=== PATIENT | male | born 1975 | race Caucasian/White ===

== ENCOUNTER 2022-06-22 20:22 | Emergency (ER) | payer OTHER, SELFPAY ==
[2022-06-22 20:29] VITALS: BP 156/90; PULSE 83; TEMP 36.6; O2SAT 95; BMI 31.3
--- NOTE | 2022-06-22 21:05 | CRLHL7_ITS ---
For Patients: As a result of the Cures Act, medical imaging exams and procedure reports are released immediately into your electronic medical record. You may view this report before your referring provider. If you have questions, please contact your health care provider. Indication: Fifth metatarsal, red and tender.. Gout versus cellulitis Technique: Right foot, 2 views. Comparison: None. Findings: Bones: Alignment is normal. No fractures or bone lesions. No erosive changes or periosteal reaction identified. Joint spaces: Unremarkable. Soft tissues: Soft tissue swelling overlying the 5th MTP.. Impression: Soft tissue swelling surrounding the 5th MTP joint. No underlying fractures. No erosive changes or periosteal reaction to suggest osteomyelitis. Dictated by Anaid Sharp MD @ 06/22/2022 9:52:49 PM (Electronically Signed)
--- NOTE | 2022-06-22 21:09 | ED.WOUNDLAC ---
HPI - Wound/Laceration General Chief Complaint: Laceration/Wound Stated Complaint: Rt Foot Infection - Streaking Time Seen by Provider: 06/22/22 20:56 Source: patient Mode of arrival: ambulatory Limitations: no limitations History of Present Illness HPI narrative: 47-year-old male with tenderness in the right 5th metatarsal area for the past couple of days, noting red streaking coming up the foot today. Unfortunately no urgent care appointments were available per patient. He is not having fevers but is notice redness spreading along the bottom of the foot as well. He tends to get calluses in this area it does admit to shaving down a callus Praveena may have been a little aggressive last week. He wonders if this potentially could be causing his symptoms. He is prone to a bony enlargement like a bunion on both feet at the 5th metatarsal area, this is chronic. There was no specific trauma nor injury. He has no history of gout. He has had infections that have required IV antibiotics uneven hospitalization though he does not report a history of MRSA. He states that he had an infection in the elbow which required IV antibiotics most recently in November of 2020. He notes no fevers, weakness or like symptoms. Has not tried any topical treatments or other medications to help with his symptoms. He is not immunocompromised, not diabetic, has no history of vascular disease. Past medical history otherwise benign besides the previous skin infections. 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 Long-term medications, no allergies. Socially no illicit substances or pertinent travel. ROS is negative times 12 systems with the exception of the musculoskeletal and skin symptoms as described above on the right lateral foot. Related Data Previous Rx's Medication Instructions Recorded doxycycline hyclate 100 mg capsule 100 mg PO BID #15 caps 06/22/22 sulfamethoxazole 800 1 tab PO BID #15 tabs 06/22/22 mg-trimethoprim 160 mg tablet (Bactrim DS) Allergies Allergy/AdvReac Type Severity Reaction Status Date / Time No Known Drug Allergies Allergy Verified 06/22/22 20:31 Review of Systems Status of ROS: Reports: 10 or more systems reviewed and unremarkable except as noted in History and below PFSH PFS Social History Smoking Status: Former smoker Do you use any of these nicotine containing products: None Second hand tobacco smoke exposure: No How often do you have a drink containing alcohol: monthly or less How often do you have six or more drinks on one occasion: Never AUDIT-C Alcohol total score: 1 Non-prescribed substance use: denies use Exam Const: Vital Signs, click to edit/add: Vital Signs - 24 hr 06/22/22 20:29 Temperature 97.8 F Pulse Rate [Left P ulse Oximeter] 83 Blood Pressure [Ri ght Upper Arm] 156/90 H Pulse Oximetry 95 Oxygen Delivery Me thod Room Air Documenting provider has reviewed patient's vital signs: yes Common normals: no apparent distress General appearance: cooperative, comfortable and well kempt HENMT: Common normals: normocephalic Head and scalp: normocephalic Mouth: oral and palatal mucosa normal Throat: posterior oropharynx normal Eye: Common normals: conjunctivae normal and no scleral icterus Conjunctiva: conjunctiva(e) normal Neck & C-Spine: Common normals: full ROM and no lymphadenopathy Resp: Common normals: normal respiratory effort, no use of accessory muscles and clear to auscultation bilaterally Effort & inspection: able to speak in complete sentences Auscultation: clear to auscultation bilaterally Cardio: Common normals: regular rate, regular rhythm, S1 normal heart sound, S2 normal heart sound and no murmurs Rate: regular rate Rhythm: regular rhythm Heart sounds: S1 normal and S2 normal GI: Common normals: Normal to inspection, nondistended, normoactive bowel sounds present, no hepatosplenomegaly and no masses Palpation: no hepatosplenomegaly Extremity: Other: Left foot with bony enlargement of the left 5th metatarsal but no other abnormality. The feet have fallen arches but overall structurally normal-appearing ankles and knees. The foot however has swelling, redness and warmth over the lateral 5th metatarsal of the right foot. There is callus and ulceration on the bottom of the 5th metatarsal plantar surface it does look as though he had filed this down but there is certainly an ulcer here with some bruising and exquisite tenderness. There is redness sneaking around the bottom of the foot along the 3rd and 4th metatarsal plantar heads and also redness streaking up the foot along the arch in a very thin line suspicious for lymphangitis. Good Peripheral pulses normal range of motion of foot. Neuro: Motor exam: strength 5/5 throughout, no tremor noted, no asterixis and no movement abnormalities noted Psych: Common normals: speech normal Appearance: well kempt Speech: normal speech Mood and affect: euthymic mood Insight: insight good Judgement: judgment good Skin: Narrative: Other than the ulceration on the bottom of the right 5th MTP and the streaking redness, there are no other abnormal appearing rashes. He does has some very slight superficial spider veins, we discussed how these are nonpathological. Course Course Hospital Course: Significant concern that this is either gout or a spreading infection. Could potentially be osteomyelitis with the ulceration noted. It does sound suspicious that this was from his self induce treatment callus. But could reflect metabolic pathology. IV will be placed as he will likely need IV antibiotics. We will also get a CRP, CBC, basic metabolic panel, uric acid level and x-ray. If infection, would recommend initial dose of IV antibiotics before transitioning onto oral. May require additional days of IV antibiotics. Vital Signs Vital signs: Initial Vital Signs Temperature 97.8 F 06/22/22 20:29 Temperature Source Temporal Artery Scan 06/22/22 20:29 Pulse Rate 83 06/22/22 20:29 Blood Pressure 156/90 H 06/22/22 20:29 Blood Pressure Mean 112 06/22/22 20:29 Blood Pressure Position Sitting 06/22/22 20:29 Pulse Oximetry 95 06/22/22 20:29 Oxygen Delivery Method 06/22/22 20:29 Vital Signs Temperature 97.8 F 06/22/22 20:29 Pulse Rate 83 06/22/22 20:29 Blood Pressure 156/90 H 06/22/22 20:29 Pulse Oximetry 95 06/22/22 20:29 Oxygen Delivery Method 06/22/22 20:29 Temperature 97.8 F 06/22/22 20:29 Pulse Rate 83 06/22/22 20:29 Blood Pressure 156/90 H 06/22/22 20:29 Pulse Oximetry 95 06/22/22 20:29 Oxygen Delivery Method 06/22/22 20:29 MDM - Wound/Laceration MDM Narrative Medical decision making narrative: Labs reviewed, more suspicious for infection than gout. Uric acid levels are a little borderline. He has a slight white count but CRP is normal which would more favor infection than gout. Prior history of similar infections at elbow suspicious as well. 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 Discussed antibiotic therapy. Recommended a single course of IV clindamycin then transitioning on to oral medication. Will receive his 1st dose of Bactrim here tonight as well, orally. Area of cellulitis is marked. Recommended follow-up on Sunday with primary care provider. Alarm symptoms in warning signs reviewed. Drink lots of fluids, typical side effects discussed. Lab Data Attestation: I reviewed the patient's lab results. Labs: Lab Results 06/22/22 06/22/22 Range/Units 21:05 21:20 WBC 12.43 H (4.50-11.00) K/uL RBC 5.27 (4.30-5.90) m/uL Hgb 15.8 (13.5-17.5) gm/dL Hct 46.0 (37.0-53.0) % MCV 87 (80-100) fL MCH 30 (26-34) pg MCHC 34 (32-36) gm/dL RDW Coeff of Ming 12.4 (11.5-15.5) % Plt Count 233 (140-440) K/uL Neut % (Auto) 70.3 (42.0-72.0) % Lymph % (Auto) 19.5 L (20-44) % [place] % (Auto) 7.3 (0.0-11.0) % Eos % (Auto) 2.3 (0.0-7.0) % Baso % (Auto) 0.4 (0.0-3.0) % Neut # (Auto) 8.70 H (1.7-7.0) K/uL Lymph # (Auto) 2.40 (0.90-2.90) K/uL [place] # (Auto) 0.90 (0.00-0.90) K/UL Eos # (Auto) 0.30 (0.00-0.50) K/uL Baso # (Auto) 0.00 (0.00-0.30) K/uL Abs Immat Gran (auto) 0.00 (0.00-0.30) K/uL Imm/Tot Granulo (auto) 0.2 % Sodium 140 (135-149) mmol/L Potassium 3.8 (3.6-5.1) mmol/L Chloride 103 (96-114) mmol/L Carbon Dioxide 27 (20-32) mmol/L BUN 18 (5-24) mg/dL Creatinine 1.0 (0.5-1.5) mg/dL Estimated Creat Clear 124.00 Estimated GFR 93 ml/min Glucose 91 (60-115) mg/dL Uric Acid 6.0 (2.2-8.4) mg/dL Calcium 9.5 (8.4-10.6) mg/dL C-Reactive Protein 0.6 (0.5-1.0) mg/dL Imaging Data Foot x-ray: Attestation: I have reviewed the pertinent imaging results. My impression: Impressive amount of arthritis for age, lots of spurs. In the area of question at the 5th metatarsal though no erosive changes to the bone noted. There is some mild soft tissue swelling however suspicious for cellulitis Radiologist's impression: Impression: Soft tissue swelling surrounding the 5th MTP joint. No underlying fractures. No erosive changes or periosteal reaction to suggest osteomyelitis. Discharge Plan Discharge Clinical Impression: Cellulitis of foot Patient Disposition: Home, Self-Care Condition: Improved Instructions: Cellulitis (ED) Additional Instructions: The blood work is more suspicious for infection than gout. I suspect that the infection entered through break in the skin near your callus on the bottom of the foot. We have started you on antibiotics here in the emergency department. You will need to go to the pharmacy in the morning and knot picker cloth your additional doses. Take your next dose is as soon as possible in the morning. He will continue taking these twice daily for the next 10 days. Area of redness may worsen for 24 hours. This is not necessarily a sign of a problem. If after 24 hours, it is continuing to worsen, you may need admission and IV antibiotics, please come back to the emergency department if this is the case. If at any point you are severely weak, running high fevers and unable to care for herself, come back to the emergency department. Apply antibiotic ointment to the wound on the bottom of the foot and keep this covered. I would like for you to follow-up with a primary care doctor on Sunday to make sure that things are healing well. It would be reasonable to have you see a styrene dehydration reactor operator because of arthritis issues in your foot if it is bother you enough to limit activities. It is okay to use Tylenol and/or ibuprofen as needed for pain. Activity Level: Activity as Tolerated Discharge Diet: Regular Prescriptions: New sulfamethoxazole-trimethoprim [Bactrim DS] 800-160 mg tablet 1 tab PO BID Qty: 15 0RF doxycycline hyclate 100 mg capsule 100 mg PO BID Qty: 15 0RF Follow Up/Referrals: Provider,Not a Local [Primary Care Provider] - (Primary care provider on Sunday.) Stand Alone Forms: [facility] Info Instructions
[2022-06-22 21:26] LABS: Basophils Percent Auto 0.4 % (0.0-3.0); Eosinophils Percent Auto 2.3 % (0.0-7.0); Hemoglobin* 15.8 gm/dL (13.5-17.5); Immature Granulocytes Pct Auto 0.2 %; Lymphocytes Percent Auto 19.5 % (20-44); Mean Corpuscular HGB Conc 34 gm/dL (32-36); Mean Corpuscular Hemoglobin 30 pg (26-34); Mean Corpuscular Volume 87 fL (80-100); Monocytes Percent Auto 7.3 % (0.0-11.0); Neutrophils Percent Auto 70.3 % (42.0-72.0); Platelet Count* 233 K/uL (140-440); RDW Coefficient of Variation % 12.4 % (11.5-15.5); Red Blood Count 5.27 m/uL (4.30-5.90); White Blood Count* 12.43 K/uL (4.50-11.00)
[2022-06-22 21:39] LABS: Chloride* 103 mmol/L (96-114); Potassium* 3.8 mmol/L (3.6-5.1); Sodium* 140 mmol/L (135-149)
[2022-06-22 21:41] LABS: Estimated Glomerular Filt Rate 93 ml/min
[2022-06-22 21:42] LABS: Blood Urea Nitrogen* 18 mg/dL (5-24); Carbon Dioxide* 27 mmol/L (20-32); Glucose* 91 mg/dL (60-115)
[2022-06-22 21:43] LABS: Calcium* 9.5 mg/dL (8.4-10.6)
[2022-06-22 21:45] LABS: C Reactive Protein* 0.6 mg/dL (0.5-1.0)
[2022-06-22 21:54] LABS: Slide Review Reflex No
[2022-06-22 22:10] VITALS: BP 130/90; PULSE 75; O2SAT 95
[2022-06-22] MEDS: CLINDAMYCIN PHOSPHATE/D5W 600 MG/50 ML PIGGYBACK 900 MG IVPB (22:10)
[2022-06-22 22:30] VITALS: BP 140/87; PULSE 72; O2SAT 95
[2022-06-22 22:45] VITALS: BP 133/78; PULSE 72; O2SAT 95
== END 2022-06-22 22:53 | disposition home or self-care (01) ==
PROVIDERS: Emergency Provider Family Medicine
DX: L03.115 Cellulitis of right lower limb (principal)
CPT/HCPCS: 36415; 73620; 80048; 84550; 85025; 86140; 96374; 99283; A9270; S0077

== ENCOUNTER 2022-06-27 15:37 | Emergency (ER) | payer OTHER, SELFPAY ==
[2022-06-27 15:50] VITALS: BP 150/84; PULSE 82; RESP 18; TEMP 36.1; O2SAT 96; BMI 31.3
--- NOTE | 2022-06-27 17:46 | ED.GENADULT ---
HPI - General Adult General Time Seen by Provider: 17:47 Date Seen: 06/27/22 Chief complaint: Extremity Pain/Injury, Lower Stated complaint: Infection on right foot Time Seen by Provider: 06/27/22 17:33 Source: patient, RN notes reviewed and old records reviewed Mode of arrival: ambulatory Limitations: no limitations History of Present Illness HPI narrative: 47-year-old male who comes in today with right foot pain. He was seen here a couple days ago with this, diagnosed with cellulitis and started on doxycycline. Had significant improvement until today when he noticed increased swelling and pain. No fevers. No nausea vomiting. Related Data Previous Rx's Medication Instructions Recorded doxycycline hyclate 100 mg capsule 100 mg PO BID #15 caps 06/22/22 sulfamethoxazole 800 1 tab PO BID #15 tabs 06/22/22 mg-trimethoprim 160 mg tablet (Bactrim DS) Allergies Allergy/AdvReac Type Severity Reaction Status Date / Time No Known Drug Allergies Allergy Verified 06/27/22 15:57 Review of Systems Status of ROS: Reports: 10 or more systems reviewed and unremarkable except as noted in History and below PFSH PFSH Social History Smoking Status: Former smoker Do you use any of these nicotine containing products: None Second hand tobacco smoke exposure: No How often do you have a drink containing alcohol: monthly or less How often do you have six or more drinks on one occasion: Never AUDIT-C Alcohol total score: 1 Non-prescribed substance use: denies use Exam Narrative: Exam Narrative: General: well nourished , NAD Head: Atraumatic and normocephalic ENT: External ears and external nose are normal Eyes: Conjunctiva clear, pupils are equal reactive, external ocular motions are intact Neck: Full spontaneous range of motion of the neck Lungs: No respiratory distress Musculoskeletal: Swelling of the lateral right foot over the distal 5th metatarsal, surrounding erythema and obvious subcutaneous purulence. No tenderness between the metatarsals. No pain with passive movement of the toes. Slight tracking erythema proximally but still significantly retreated from prior aleman. Neurologic: No gross focal neurologic deficits Skin: No rashes Psych: Mood and affect are appropriate Const: Vital Signs, click to edit/add: Vital Signs - 24 hr 06/27/22 15:50 Temperature 96.9 F L Pulse Rate [Right Pulse Oximeter] 82 Respiratory Rate 18 Blood Pressure [Ri ght Upper Arm] 150/84 H Pulse Oximetry 96 Oxygen Delivery Me thod Room Air Course Course Hospital Course: Patient seen and examined, prior records reviewed. Patient with a cellulitis of the right foot and now what appears to be a pus collection under the skin. This area was prepped with ChloraPrep and a 2 mm right done later section of skin was removed with moderate purulent fluid expressed. Wound was dressed. Patient should continue antibiotics and will be started on Augmentin as well. I contacted Dr. Dejesus who will see the patient in clinic at 9AM tomorrow. Patient will be started on Augmentin and continue his doxycycline. Vital Signs Vital signs: Initial Vital Signs Temperature 96.9 F L 06/27/22 15:50 Temperature Source Temporal Artery Scan 06/27/22 15:50 Pulse Rate 82 06/27/22 15:50 Respiratory Rate 18 06/27/22 15:50 Blood Pressure 150/84 H 06/27/22 15:50 Blood Pressure Mean 106 06/27/22 15:50 Blood Pressure Position Sitting 06/27/22 15:50 Pulse Oximetry 96 06/27/22 15:50 Oxygen Delivery Method 06/27/22 15:50 Vital Signs Temperature 96.9 F L 06/27/22 15:50 Pulse Rate 82 06/27/22 15:50 Respiratory Rate 18 06/27/22 15:50 Blood Pressure 150/84 H 06/27/22 15:50 Pulse Oximetry 96 06/27/22 15:50 Oxygen Delivery Method 06/27/22 15:50 Temperature 96.9 F L 06/27/22 15:50 Pulse Rate 82 06/27/22 15:50 Respiratory Rate 18 06/27/22 15:50 Blood Pressure 150/84 H 06/27/22 15:50 Pulse Oximetry 96 06/27/22 15:50 Oxygen Delivery Method 06/27/22 15:50 Medical Decision Making Medical Records Medical records reviewed: Yes I reviewed the patient's medical records Lab Data Lab results reviewed: Yes I reviewed the patient's lab results Discharge Plan Discharge Clinical Impression: Abscess of right foot Patient Disposition: Home, Self-Care Condition: Stable Instructions: Abscess Incision and Drainage (DC) Additional Instructions: Warm soapy soaks twice a day. Dressing for comfort as there may be continued drainage. [facility] at 9:00 a.m. Continue your current antibiotic and add Augmentin Activity Level: No Restrictions Discharge Diet: Regular Prescriptions: No Action sulfamethoxazole-trimethoprim [Bactrim DS] 800-160 mg tablet 1 tab PO BID Qty: 15 0RF doxycycline hyclate 100 mg capsule 100 mg PO BID Qty: 15 0RF Follow Up/Referrals: Provider,Not a Local [Referring] - Stand Alone [facility]: [facility] Inst[facility]
[2022-06-27 18:12] VITALS: BP 150/84; PULSE 82; RESP 18; TEMP 36.1
--- NOTE | 2022-06-27 18:15 | ED.NURSE ---
Telfa and gauze dressing, Coban applied to foot. Additional dressing supplies provided to Pt. Ambulates well.
== END 2022-06-27 18:12 | disposition home or self-care (01) ==
PROVIDERS: Emergency Provider Family Medicine; PCP Student in an Organized Health Care Education/Training Program
DX: L02.611 Cutaneous abscess of right foot (principal)
CPT/HCPCS: 10060; 99283

== ENCOUNTER 2022-07-02 15:09 | Emergency (ER) | payer OTHER, SELFPAY ==
[2022-07-02 15:20] VITALS: BP 131/84; PULSE 88; RESP 20; TEMP 36.3; O2SAT 95; BMI 31.3
--- NOTE | 2022-07-02 15:32 | ED.GENADULT ---
HPI - General Adult General Time Seen by Provider: 15:32 Date Seen: 07/02/22 Chief complaint: Extremity Pain/Injury, Lower Stated complaint: Right foot absces Time Seen by Provider: 07/02/22 15:15 Source: patient, RN notes reviewed and old records reviewed Mode of arrival: ambulatory Limitations: no limitations History of Present Illness HPI narrative: Patient is a 47-year-old male coming in with increasing right foot pain and some increasing redness around the site of an abscess that he had drained recently. 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 He states that his time in the ER today is 1st time he has had it up all day. He gives a history where he has maybe had cellulitis or abscesses about 8-9 times in his life. He had seen Dr. Mcdaniel initially here in the ER early June with a diagnosis of cellulitis of his right foot. Dr. Fuentes saw him back I believe on the and did do an incision and drainage. He was initially put on Bactrim and doxycycline, then Augmentin added in. A culture was not done of the abscess. Reviewed with patient that he had been on antibiotics for about a week at that time but will certainly look at his foot to see if there is anything culturable today. He states the exterior interior specialist had recommended getting a culture if possible at any point it might be worsening. No fevers. Pain in the foot did increase after he had been up on it all day yesterday. Related Data Home Medications Medication Instructions Recorded Confirmed amoxicillin 875 mg-potassium 1 tab PO Q12H 07/02/22 07/02/22 clavulanate 125 mg tablet Allergies Allergy/AdvReac Type Severity Reaction Status Date / Time No Known Drug Allergies Allergy Verified 07/02/22 15:19 Review of Systems Narrative: As per HPI PFS PFSH Social History Smoking Status: Former smoker Do you use any of these nicotine containing products: None Second hand tobacco smoke exposure: No How often do you have a drink containing alcohol: monthly or less How often do you have six or more drinks on one occasion: Never AUDIT-C Alcohol total score: 1 Non-prescribed substance use: denies use Exam Const: Vital Signs, click to edit/add: Vital Signs - 24 hr 07/02/22 15:20 07/02/22 15:51 Temperature 97.3 F L Pulse Rate [Pulse Oximeter] 88 87 Respiratory Rate 20 Blood Pressure [Le ft Upper Arm] 131/84 Pulse Oximetry 95 95 Oxygen Delivery Me thod Room Air Room Air Documenting provider has reviewed patient's vital signs: yes Common normals: no apparent distress, oriented x3, no limitations, healthy appearing, alert and well nourished General appearance: cooperative, comfortable and well kempt Other: Patient is a very pleasant 47-year-old male. CV regular rate and rhythm no murmur. Right foot is exposed in and inspected. He is able to show me a picture of what it looked like before the abscess was incised and drained. He has some desquamation around the edges of this area overlying the distal right lateral 5th metatarsal area. There is some mild erythema in maybe just slight swelling around the borders. I feel no fluctuance, cannot coalesce anything into his central abscess area. There is no significant heat. Patient would really like to see if there is any underlying abscess. Reviewed with him that I could take a needle and go into the center of the area and see if we expressed any fluid out of it. He did agree. I did take some alcohol clean the skin and took a 25 gauge needle and coalesced the central area between the thumb and forefinger, place a needle in the center of this. All that came back was a small droplet of blood. There really does not seem to be any fluid that is coalesced into an abscess. This time the wound overall looks stable to me, would not recommend antibiotics. I would however highly encouraged him to elevate this foot, get off it in give it some time to rest. I think he might find that to be most beneficial. I do agree with his plan to try to get back in to the exterior interior specialist this week as well for recheck. Neuro: Common normals: oriented x3 Sensorium/orientation: alert Psych: Appearance: well kempt Course Vital Signs Vital signs: Initial Vital Signs Temperature 97.3 F L 07/02/22 15:20 Temperature Source Temporal Artery Scan 07/02/22 15:20 Pulse Rate 88 07/02/22 15:20 Respiratory Rate 20 07/02/22 15:20 Blood Pressure 131/84 07/02/22 15:20 Blood Pressure Mean 99 07/02/22 15:20 Blood Pressure Position Sitting 07/02/22 15:20 Pulse Oximetry 95 07/02/22 15:20 Oxygen Delivery Method 07/02/22 15:20 Vital Signs Temperature 97.3 F L 07/02/22 15:20 Pulse Rate 88 07/02/22 15:20 Respiratory Rate 20 07/02/22 15:20 Blood Pressure 131/84 07/02/22 15:20 Pulse Oximetry 95 07/02/22 15:20 Oxygen Delivery Method 07/02/22 15:20 Temperature 97.3 F L 07/02/22 15:20 Pulse Rate 87 07/02/22 15:51 Respiratory Rate 20 07/02/22 15:20 Blood Pressure 131/84 07/02/22 15:20 Pulse Oximetry 95 07/02/22 15:51 Oxygen Delivery Method 07/02/22 15:51 Discharge Plan Discharge Clinical Impression: Abscess of right foot, Cellulitis of foot Patient Disposition: Home, Self-Care Condition: Stable Instructions: Cellulitis (ED), Abscess (ED) Additional Instructions: At this time, there is no coalescence back into an abscess that I can identify. I would stay on the Augmentin, highly encourage you to rest and elevate this foot. Contact Dr. Cohn tomorrow in see if he can re-evaluate you within the next 24-48 hours. As far as foot infections go, it is my experience that people really need to try to elevate the extremity and allow time for healing. If you should somehow developed rapidly expanding swelling and redness of this site, have fevers overnight, please return to the ER. Prescriptions: No Action amoxicillin-pot clavulanate 875-125 mg tablet 1 tab PO Q12H Label Comments: x10 days Follow Up/Referrals: PO WHITE DO [Primary Care Provider] - Stand Alone Forms: [facility] Info Instructions
--- NOTE | 2022-07-02 15:49 | ED.NURSE ---
Large band-aid applied to wound on lateral side of pt's R foot.
[2022-07-02 15:51] VITALS: PULSE 87; O2SAT 95
--- OUTSIDE RECORDS SUMMARY | 2022-07-02 16:11 | XMS_ITS | Clinical Summary ---
:1975 Author Organization [facility] [place] [address] Care Team Providers Name Role Phone [facility] Primary Care Provider Allergies No known active allergies Medications Medication Sig Dispensed Refills Start Date End Date Status doxycycline Take 100 mg 0 06/23/2022 Activ e (VIBRAMYCIN) 100 by mouth two mg capsule times daily. amoxicillin-clavu Take 1 20 Tablet 0 06/28/2022 A ctive lanate 875-125 mg Tablet by tablet mouth two (AUGMENTIN)Indica times daily tions: with meals. Cellulitis, unspecified cellulitis site durable medical 81411 Shoe 1 Each 0 06/28/2022 Ac tive equipment DH (DME)Indications: Offloading, Cellulitis, XLG unspecified cellulitis site trimethoprim-sulf Take 1 0 06/23/2022 06/28/2022 Discontinued amethoxazole, Tablet by (*Med 160-800 mg, mouth two complete /Regimen (BACTRIM DS, times daily. comp lete/Level of SEPTRA DS) tab care change) Active Problems Not on file Encounters Date Type Specialty Care Team Description 06/28/2022 Office Visit Vincent Dejesus, Consult (Right foot DPM infection) 06/27/2022 Travel 06/27/2022 Nurse Triage Pcp, No Foot Pain/probl em from Last 3 Months Social History Tobacco Use Types Packs/Day Years Used Date Never Smoker Smokeless Tobacco: Never Used Sex Assigned at Date Recorded Not on file COVID-19 Exposure Response Date Recorded In the last 10 days, have you been in contact with No / Unsu re 06/27/2022 2:40 PM LEATHER CRAFTSMAN someone who was confirmed or suspected to have Coronavirus/COVID-19? Obstetrics History Last Filed Vital Signs Vital Sign Reading Time Taken Comments Blood Pressure - - Pulse 74 06/28/2022 9:15 AM LEATHER CRAFTSMAN Temperature 36.6 ??C (97.8 ??F) 06/28/2022 9:15 AM LEATHER CRAFTSMAN Respiratory Rate - - Oxygen Saturation 95% 06/28/2022 9:15 AM LEATHER CRAFTSMAN Inhaled Oxygen Concentration - - Weight 140 kg (308 lb 9.6 oz) 06/28/2022 9:15 AM LEATHER CRAFTSMAN Height - - Body Mass Index - - Plan of Treatment Upcoming Encounters Date Type Specialty Care Team Description 07/04/2022 Office Visit Fam Lewis DO [address] [place] [address] (Wo rk) 07/12/2022 Office Visit Trish Dejesus DPM [address] [place] [address] (Wo rk) Health Maintenance Due Date Last Done Comments Tdap 1986 Depression screening for age 12+ 1987 HIV for age 15-65 1990 BMI (ht and wt on same day) for age 1005/31/1993 18+ Hepatitis C screening for age 18-79 1993 Tetanus booster 1995 Colonoscopy through age 75 2020 Lipids for age 45-75 2020 COVID-19 vaccine series (4 - Booster 09/28/2021 08/03/2021, 10/23/2020, for Pfizer series) 10/02/2020 Influenza for age 9-49 04/13/2022 Results Not on filefrom Last 3 Months Insurance Payer Benefit Plan / Subscriber ID Effective Dates Phone Addre ss Type Group MEDICA MEDICA CHOICE [id number] 2022-Present [address] [address] [place] [address] Care Teams Can[employer]s Supervisor Relationship Specialty Start Date End [place] [facility] [place] 06/27/22 [address] [place] [id number]
== END 2022-07-02 16:16 | disposition home or self-care (01) ==
LOC: ED 16:09
PROVIDERS: Emergency Provider Family Medicine; PCP Student in an Organized Health Care Education/Training Program
DX: L02.611 Cutaneous abscess of right foot (principal)
CPT/HCPCS: 99283

== ENCOUNTER 2023-09-10 08:49 | Day surgery (SDC) | payer OTHER, SELFPAY ==
[2023-09-10] VITALS (14 sets, daily range): BP systolic 134–167; BP diastolic 81–101; PULSE 54–85; RESP 14–20; TEMP 35.8–36.8; O2SAT 89–97; BMI 35.2
--- OUTSIDE RECORDS SUMMARY | 2023-09-10 08:52 | XMS_ITS | Clinical Summary ---
Author Name Unknown Organization [facility] Address [place], [place] [address] Care Team Providers Care Housekeeping Worker Name Role Phone Fam Lewis DO Primary Care Provider [phone] Allergies No known active allergies Medications Medication Sig Dispensed Refills Start Date End Date Status polyethylene glycol-electrolyte (GOLYTELY) 236-22.74-6.74 -5.86 gram suspensionIndication s:Encounter for screening colonoscopy Drink 2 liters the day before colonoscopy and drink 2 liters 6 hours before colonoscopy appointment 4000 mL 0 07/11/2022 Active Myorisan 40 mg capsule Take 2 Capsules by mouth once daily. 0 09/19/2022 Active triamcinolone (ARISTOCORT; KENALOG) 0.1 % cream APPLY TO AFFECTED AREA ON HANDS TWICE A DAY FOR 2 WEEKS AT A TIME REPEAT NEEDED FOR FLARES 0 09/19/2022 Active Active Problems No known active problems Encounters Date Type Department Care Team Description 08/14/2023 2:00 PM RESPONDER Ancillary Procedure [facility] [address] [place] [address] 08/14/2023 1:15 PM RESPONDER Preop Visit [facility] [address] [place] [address] Fma Lewis DO Preoperative Exam (R ankle reconstruction on 09/10 at [facility] by ) 08/14/2023 Travel from Last 3 Months Immunizations Name Administration Dates Next Due COVID-19 vaccine (OrderAhead-Bio NTech 30mcg/0.3mL) 12YO+ BIVALENT PF, MDV 07/11/2022 Influenza, IIV4 07/11/2022,06/10/2018 Influenza, IIV4 (=>6mos) MDV 04/28/2015 Tdap 06/02/2015 Social History Tobacco Use Types Packs/Day Years Used Date Smoking Tobacco: Never Smokeless Tobacco: Never Tobacco Cessation:Counseling Given: Not Answered Comments:some smoking in college Alcohol Use Standard Drinks/Week Comments Yes 0 (1 standard drink = 0.6 oz pur e alcohol) social, casual PHQ-2 Answer Date Recorded PHQ-2 TOTAL SCORE 0 08/14/2023 Social Connections Answer Date Recorded Frequency of Communication with Friends and Fami ly Not on file 07/11/2022 Sex and Gender Information Value Date Recorded Sex Assigned at Not on file Gender Identity Not on file Sexual Orientation Not on file Obstetrics History Last Filed Vital Signs Vital Sign Reading Time Taken Comments Blood Pressure 128/88 08/14/2023 1:20 PM RESPONDER Pulse 100 08/14/2023 1:20 PM RESPONDER Temperature 37.1 ??C (98.7 ??F) 08/14/2023 1:20 PM CS T Respiratory Rate 12 10/12/2022 9:55 AM RESPONDER Oxygen Saturation 96% 08/14/2023 1:20 PM RESPONDER Inhaled Oxygen Concentration - - Weight 145.6 kg (321 lb) 08/14/2023 1:20 PM RESPONDER Height 204 cm (6' 8.32) 08/14/2023 1:20 PM RESPONDER Body Mass Index 34.99 08/14/2023 1:20 PM RESPONDER Plan of Treatment Upcoming Encounters Date Type Department Care Team (Late st Contact Info) Description 09/12/2023 1:00 PM RESPONDER Office Visit [facility] [address] [place] [address] Vincent Dejesus DPM [address] [place] [address] 09/26/2023 1:00 PM RESPONDER Office Visit [facility] [address] [place] [address] Vincent Dejesus DPM [address] [place] [address] 10/24/2023 1:00 PM CDT Office Visit [facility] [address] [place] [address] Vincent Dejesus DPM [address] [place] [address] Health Maintenance Due Date Last Done Comments Hepatitis C screening for age 18-79 1993 COVID-19 vaccine series (2022- season) 2023 07/11/2022, 08/03/2021, 10/23/2020, Additional history exists Influenza for age 9-49 04/13/2023 , 06/10/2018, 04/28/2015 BMI (ht and wt on same day) for age 18+ 08/14/2024 08/14/2023, 07/11/2022 Depression screening for age 12+ 08/14/2024 08/14/2023, 07/11/2022, 07/11/2022, Additional history exists Tetanus booster 06/02/2025 06/02/2015 Lipids for age 45-75 07/03/2027 07/03/2022 Colonoscopy through age 75 10/12/203210/12, 10/12/2022, 10/12/2022 Tdap Completed 06/02/2015 HIV for age 15-65 Completed 07/03/2022 (Co mpleted outside of [facility]) Pneumococcal series for age 6-64 Aged Out No longer eligible based on patient's age to complete this topic Procedures Procedure Name Priority Date/Time Associated Diagnosis Comments XR RIBS LEFT AND PA CHEST MINIMUM 3 VIEWS Routine 08/14/2023 2:02 PM RESPONDER Rib pain from Last 3 Months Results * XR RIBS LEFT AND PA CHEST MINIMUM 3 VIEWS (08/14/2023 2:02 PM RESPONDER) Anatomical Region Laterality Modality RIBS, RIBS L, CHEST Computed Rad iography 08/16/2023 6:43 AM RESPONDER Impressions 08/16/2023 6:43 AM RESPONDER Left basilar atelectasis. No displaced rib fracture. Dictated by Abrahan Aquino MD @ Aug ??2023 ??6:43AM (Electronically Signed) ?? Narrative 08/16/2023 6:43 AM RESPONDER For Patients: ??As a result of the Cures Act, medical imaging exams and procedure reports are released immediately into your electronic medical record. ??You may view this report before your referring provider. ??If you have questions, please contact your health care provider. INDICATION: Pain COMPARISON: none TECHNIQUE: PA chest and left ribs. FINDINGS: Mild prominence of the interstitial markings bilaterally, possibly artifactual related to scarring. Left basilar atelectasis. There is no evidence of pulmonary contusion, pneumothorax or pleural effusion. ??The heart and pulmonary vessels are of normal size. ??Oblique detail views of the ribs demonstrate no evidence of fracture or intrinsic bone lesion. ??There is no evidence of pleural hematoma. Procedure Note Abrahan Aquino MD - 08/16/2023 For Patients: As a result of the Cures Act, medical imagingexams and procedure reports are released immediately into your electronicmedical record. You may view this report before your referring provider.If you have questions, please contact your health care provider. INDICATION: Pain COMPARISON: none TECHNIQUE: PA chest and left ribs. FINDINGS: Mild prominence of the interstitial markings bilaterally, possiblyartifactual related to scarring. Left basilar atelectasis. There is noevidence of pulmonary contusion, pneumothorax or pleural effusion. Theheart and pulmonary vessels are of normal size. Oblique detail views ofthe ribs demonstrate no evidence of fracture or intrinsic bone lesion.There is no evidence of pleural hematoma. IMPRESSION: Left basilar atelectasis. No displaced rib fracture. Dictated by Abrahan Aquino MD @ Aug 16 2023 6:43AM (Electronically Signed) Fam Joshua DO GENERAL IMAGING from Last 3 Months Care Teams Housekeeping Worker Relationship Specialty Start Date End Date Fam Lewis DO [address] [place] [address] PCP - General Family Practice 10/16/22
[2023-09-10] MEDS: LACTATED RINGERS 1000 ML 1,000 ML 100 ML IV (08:55)
[2023-09-10] MEDS: SODIUM CHLORIDE 0.9 % (FLUSH) 10 ML SYRINGE IVF (09:37)
--- NOTE | 2023-09-10 10:00 | CRLHL7_ITS ---
For Patients: As a result of the Cures Act, medical imaging exams and procedure reports are released immediately into your electronic medical record. You may view this report before your referring provider. If you have questions, please contact your health care provider. Indication: Right Peroneal Tendon, Horan Calcaneal Osteotomy Technique: Five fluoroscopic images of the right foot. Fluoroscopic time 38.3 seconds. IMPRESSION: Fluoroscopic guidance for calcaneal osteotomy and postop changes to the 1st metatarsal and 5th metatarsal head. Dictated by Abrahan Aquino MD @ 09/11/2023 8:14:15 AM (Electronically Signed)
[2023-09-10] MEDS: fentaNYL 100 MCG/2 ML inj IVP (11:07)
[2023-09-10] MEDS: MIDAZOLAM HCL 1 MG/ML inj IVP (11:07)
--- NOTE | 2023-09-10 11:08 | SUR.PREOP ---
TIME?OUT:?1106 PT/Radha Escobedo RN/Dr. Jeff MDA?VERIFICATION?OF?SURGICAL?SITE right foot,?PROCEDURE,?AND?CONSENT OBTAINED?PRIOR?TO?INVASIVE?PROCEDURE.
[2023-09-10] MEDS: CEFAZOLIN 1 GM inj 3 GM IVP (11:40)
--- NOTE | 2023-09-10 11:50 | P.NB_ITS ---
Nerve Block Nerve Block Time Seen by Provider: 11:11 Date Seen: 09/10/23 Type of block requested by surgeon for post-operative analgesia: popliteal Side: right Time out performed: Yes Verification of patient name: Yes Verification of date of : Yes Site marking: site marked Name of person performing procedure: Jeff Continuous monitoring Was continuous monitoring of O2 sat, B/P, playground monitor, recorded every 15 minutes?: Yes Procedure Checklist: sterile prep, needles and gloves Ultrasound guided. Images saved: Yes Medications given in 5ml increments after negative aspiration: Ropivicaine %: 0.5 mL: 20 Needle gauge: 22 Patient tolerated procedure well: Yes Additional comments: Needle noted adjacent to nerve Block Charges Block Charge (with Pro Fee): Sciatic Nerve Use of Ultrasound Machine for Block: Yes- US Guidance/pain block
--- NOTE | 2023-09-10 11:50 | P.NB_ITS ---
Nerve Block Nerve Block Time Seen by Provider: 11:11 Date Seen: 09/10/23 Type of block requested by surgeon for post-operative analgesia: adductor canal Side: right Time out performed: Yes Verification of patient name: Yes Verification of date of : Yes Site marking: site marked Name of person performing procedure: Jeff Continuous monitoring Was continuous monitoring of O2 sat, B/P, nuclear monitoring technician, recorded every 15 minutes?: Yes Procedure Checklist: sterile prep, needles and gloves Ultrasound guided. Images saved: Yes Medications given in 5ml increments after negative aspiration: Ropivicaine %: 0.5 mL: 20 Needle gauge: 20 Patient tolerated procedure well: Yes Additional comments: Needle noted adjacent to nerve Block Charges Block Charge (with Pro Fee): Femoral Nerve Use of Ultrasound Machine for Block: Yes- US Guidance/pain block
--- NOTE | 2023-09-10 11:50 | W.ANESCHARGE ---
Anesthesia Charges Start Date/Time Anesthesia Start Date: 09/10/23 Anesthesia Start Time: 11:26 Stop Date/Time Anesthesia Stop Date: 09/10/23 Anesthesia Stop Time: 16:44
[2023-09-10] MEDS: CEFAZOLIN 2 GM INJ 3 GM IVP (16:09)
--- NOTE | 2023-09-10 16:55 | W.ANESCHARGE ---
Anesthesia Charges Start Date/Time Anesthesia Start Date: 09/10/23 Anesthesia Start Time: 11:26 Stop Date/Time Anesthesia Stop Date: 09/10/23 Anesthesia Stop Time: 16:44
--- NOTE | 2023-09-10 17:11 | P.GSOP_ITS ---
Operative Note Date of procedure: 09/10/23 Pre-op diagnosis: 1. Peroneal tendon tear right 2. Pes cavus right 3. Lateral ankle instability right 4. Calcific Achilles tendinitis with bone spur right 5. Tailor's bunion right Post-op diagnosis: 1. Peroneal tendon tear right 2. Pes cavus right 3. Lateral ankle instability right 4. Calcific Achilles tendinitis with bone spur right 5. Tailor's bunion right Type of Procedure: 1. Lateral displacement calcaneal osteotomy right 2. Achilles tendon debridement with calcaneal ostectomy right 3. Peroneal tendons switch/transfer right 4. Lateral ankle stabilization by modified Brostrom right 5. Fifth metatarsal osteotomy right 6. Dorsi flexion wedge osteotomy 1st metatarsal right Indications: Patient was seen in clinic for ongoing painful cavus foot with resulting lateral ankle instability, tailor's bunion, peroneal tendon rupture, Achilles tendinitis with calcifications and bone spurring. He has elected surgical care. I reviewed the procedure, recovery, expectation potential complications. These include but are not limited to: Poor wound healing, wound dehiscence, inf ection, continued pain, potential need for future surgery, nonunion, delayed union, malunion, hardware irritation, hardware failure, nerve injury, under correction, over correction, complex regional pain syndrome, deep venous thrombosis, pulmonary embolism and possible . He understands risks written consent was obtained. Site marked. Anesthesia performed a popliteal and adductor block. Procedure Description: After discussing the risks and benefits of the procedure, the patient signed informed consent.? The operative site was marked and the patient was brought to the operating room and placed on the operating table in supine position.? Care was taken to pad the patient's pressure points.?? The patient was then intubated by anesthesia.?? The patient was then positioned into a lateral decubitus position with a de los santos bag with the right side up. The operative site was then prepped and draped in the usual sterile fashion.? A time-out was then performed. Right limb was exsanguinated and the thigh tourniquet inflated to 300 mm Hg. Lazy-S incision was made on the posterior heel starting medial coursing over the tendon insertion and ending slightly lateral to midline. Incision was carried down through skin subcutaneous tissues. The Achilles tendon was identified in the large calcific nodule was found centrally proximal to the insertion. Sharp incision was made and the calcific nodule excised. Tendon was then split centrally and carefully reflected away from the large bony spurring both medial and lateral. Majority of the spur was lateral and this side was released more fully. Using combination of osteotome, rongeur and power bur the large bony spur was removed. C-arm confirmed appropriate resection. The new attachment site was roughened with a power bur. The Achilles tendon was debrided of abnormal tendon. Before completing this procedure we moved on to the calcaneal osteotomy to make sure that we did not disrupt our anchoring system. A new incision was made over the lateral calcaneus in the exact position of her osteotomy. Incision was carried down through skin subcutaneous tissues. Blunt dissection carried down to the periosteum. Crego elevator was used to free up periosteum dorsal medial and plantarly. Plantar musculature attaching to the plantar heel was released. Next using a sagittal saw calcaneal osteotomy was performed. C-arm confirmed excellent position. The posterior calcaneus was then shifted laterally 8 mm. Two guide pins were placed from the posterior inferior calcaneus across the osteotomy site. C-arm images confirmed excellent position and two 6.5 mm partially-threaded headless screws were placed. Once this was complete we returned to the Achilles tendon and 1 FiberTak was placed medial and the lateral at the Achilles repair site. Suture was passed through the tendon slips 1 medial and 1 lateral. The Achilles tendon split was repaired with 3-0 Vicryl. Next the fiber tacks were shuttled between each other and tension down bringing the Achilles slips together and forcing them anterior onto the bone. One FiberTape from each anchor was then brought together and inserted into a drill hole further inferior and lateral with a 3.5 mm SwiveLock anchor. The same was done with the remaining 2 FiberTape slips brought down to a medial drill hole and anchored with a 3.5 mm SwiveLock anchor. C-arm confirmed excellent position. This point we fully irrigated both incisions and the tourniquet was released. Bleeding vessels are cauterized. Subcutaneous tissues were reapproximated with 3-0 Vicryl and 4-0 Monocryl and the skin closed on each incision with 4-0 Prolene. The right limb was exsanguinated with an Esmarch and the tourniquet reinflated to 250 mm Hg. Linear incision was made over the lateral distal fibula coursing over the lateral malleolus and extending to the 5th metatarsal base. The incision was carried down through skin subcutaneous tissues. The peroneal tendon sheath was identified and incised along the fibula and distally both brevis and longus tendon sheaths were opened. Patient had an exceptionally large Pro nail tubercle which was removed with a rongeur. Proteus brevis tendon was significantly flattened but intact. Peroneus longus tendon was severely thickened with multiple tears and a large os peroneum present. The tendon was significantly debulked and then the brevis and longus tendons anastomosed with 2-0 FiberWire. This was done under physiologic tension and started proximal to the lateral malleolus and ended just distal to the fibular tip. Distally the peroneus longus tendon was not salvageable and at the level of the peroneal tubercle was excised including the large os peroneum. The lateral joint capsule was incised and the periosteum from the distal fibula reflected superiorly. 2 large osteophytes were removed and the spurred distal fibular tip was debrided with a rongeur. The spurring off the lateral talus was also debrided. Wound was thoroughly irrigated normal sterile saline. 4.5 mm SwiveLock anchor was placed in the fibula with FiberTape and 0 FiberWire attached. A FiberTak anchor was placed superior and a FiberTak anchor was placed inferior to the SwiveLock. Suture from the FiberTak anchors was passed through the anterior talar fibular ligament and deep fascia superiorly and the calcaneal fibular ligament and the fascia inferiorly. The FiberWire was passed through the anterior talofibular ligament and deep fascia. With the foot in dorsiflexed and everted position with the talus posteriorly placed all 3 sutures were tensioned appropriately advancing the ligaments back onto the fibula. Next a guide pin was placed in the lateral aspect of the talus with drill hole and tapped performed. The FiberTape was then brought together and a 3.5 mm SwiveLock anchor used to insert the FiberTape into the osseous tunnel. I was able to get a hemostat under the FiberTape after placement. Periosteum off the fibula was then brought down over the repair and sutured in place with 0 Vicryl. Wound was thoroughly irrigated normal sterile saline. Tourniquet was released. Peroneal retinaculum was repaired with 0 Vicryl. The peroneal tendon sheath was repaired with 3-0 Vicryl. Subcutaneous tissues reapproximated with 4-0 Monocryl and skin closed with 4-0 Prolene. The right foot was then exsanguinated and the thigh tourniquet inflated to 250 mm Hg. Linear incisions made over the dorsal lateral aspect of the 5th metatarsal head and distal shaft. The incision was carried down through skin subcutaneous tissues. The extensor digitorum longus was released. A linear capsular incision was made. A Lianna type osteotomy was performed on the 5th metatarsal head angulated so that when the capital fragment slid medial it would also elevate. A double cut was made to also elevate the metatarsal. Capital fragment was slid medial and fixated with 2.4 mm cannulated screws. Sagittal saw was used to remodel the lateral 5th metatarsal head. Wound was irrigated normal sterile saline. Capsular tissue repaired with 4-0 Vicryl. Subcutaneous tissues reapproximated 4-0 Monocryl and skin closed with 4-0 Prolene. Linear incision was then made over the 1st metatarsal proximal shaft. Incision was carried down through skin subcutaneous tissues. Extensor tendon was reflected laterally. C-arm confirmed optimal site for DFWO. A guide pin was placed in the shaft of the 1st metatarsal. A dorsally based wedge osteotomy was then performed preserving the plantar cortex. The osteotomy was closed and fixated with a dorsally based 5 hole plate. 2.4 mm screws were placed 2 proximal and 2 distal. C-arm confirmed excellent position. Overall foot position was vastly improved. Tourniquet was released and a sterile dressing applied. Normal capillary fill time returned all digits. He was placed in a well-padded [id number] plaster posterior splint in slight plantar flexion and everted. The patient was then woken and transported to the recovery area in stable condition. The patient tolerated the procedure well. He will be discharged per same-day surgery protocols. He is to be strict nonweightbearing. He is given written and verbal postop instructions. He will follow-up in 3 days. He is given oxycodone for pain. He will start aspirin therapy tomorrow. Due to history of infections he was also given Keflex for 7 days. Findings: Complications: None apparent Hemostasis: Thigh tourniquet 300 mm Hg and 200 mm Hg. Please see nursing times for specifics. Implants: 6.5 mm partially-threaded headless screws x2, Arthrex SpeedBridge with fiber tack kit x1, Ar[employer]rex internal brace kit x1, [employer] FiberTak anchors x2, [employer] 2.4 mm partially threaded screws x2, [employer] 2.4 mm cortical screw x1 and 2.4 mm locking cortical screw x3 with 5 hole titanium locking plate. Anesthesia: GETA and regional Surgeon: Vincent Dejesus DPM Estimated blood loss (mL): 60 Condition: stable Disposition: PACU
--- NOTE | 2023-09-10 17:19 | SUR.PHASEI ---
patient met discharge criteria per anesthesia
[2023-09-10] MEDS: ONDANSETRON 2 MG/ML inj 4 MG IVP (17:26)
[2023-09-10] MEDS: OxyCODONE/APAP 5-325 TABLET PO (19:00)
--- NOTE | 2023-09-10 19:07 | PC.NURSE ---
shift note: vss stable. pt tolerated soup and toast w/o nausea. Pt voided 800cc clr straw colored urine. reviewed dc instructions and meds. pt has f/u appt with surgeon on Sunday per pt's spouse. Pt received 2 percocet prior to dc. crutches given on dc. pt instructed on crutch walk and proper position. IV dc'd intact Lt hand.
== END 2023-09-10 19:09 | disposition home or self-care (01) ==
LOC: OR 08:50
PROVIDERS: PCP Student in an Organized Health Care Education/Training Program; Visit Provider Podiatrist
PROC: (CPT 28300; principal; 2023-09-10 10:00)
PROC: (CPT 28300; 2023-09-10 10:00)
PROC: (CPT 28292; 2023-09-10 10:00)
DX: S86.311A Strain of muscle(s) and tendon(s) of peroneal muscle group at lower leg level, right leg, initial encounter (principal); M25.371 Other instability, right ankle; Q66.71 Congenital pes cavus, right foot; M76.61 Achilles tendinitis, right leg; M77.31 Calcaneal spur, right foot; M21.621 Bunionette of right foot; G89.18 Other acute postprocedural pain
CPT/HCPCS: 28300; 28118; 27691; 27695; 28308; 28306; 01472; 64445; 64447; 73630; 76000; 76942; A4580; A9270; C1713; J0330; J0690; J1100; J1200; J1630; J2250; J2405; J2704; J2795; J3010; J3490; J7120

== ENCOUNTER 2023-11-04 02:46 | Emergency (ER) | payer OTHER, SELFPAY ==
[2023-11-04 02:49] VITALS: BP 157/103; PULSE 93; RESP 18; TEMP 36.4; O2SAT 94; BMI 31.5
--- NOTE | 2023-11-04 03:05 | ED_ITS ---
HPI - General Adult General Chief complaint: Extremity Pain/Injury, Lower Stated complaint: right foot pain Time Seen by Provider: 11/04/23 02:48 Source: patient Mode of arrival: ambulatory Limitations: no limitations History of Present Illness HPI narrative: 48-year-old male coming in today complaining of right foot pain. Patient has a history of recurrent foot infections, recent surgery in August of this year of the foot. He states that yesterday he was just going about his daily activity when he felt a pop the back of the foot. In the last 24 hours the foot has gotten progressively more swollen and tender. He denies any fevers or chills. No nausea or vomiting. No systemic symptoms. In the swelling encompasses the whole foot, he complains of redness and heat on the back of the foot just distal to the attachment of the Achilles. Related Data Home Medications Medication Instructions Recorded Confirmed amoxicillin 875 mg-potassium 1 tab PO Q12H 07/02/22 07/02/22 clavulanate 125 mg tablet isotretinoin 40 mg capsule 40 mg PO BID 09/06/23 09/06/23 (Accutane) Allergies Allergy/AdvReac Type Severity Reaction Status Date / Time No Known Drug Allergies Allergy Verified 09/10/23 09:09 Review of Systems Status of ROS: Reports: 10 or more systems reviewed and unremarkable except as noted in History and below [facility] Social History Smoking Status: Former smoker Do you use any of these nicotine containing products: None Second hand tobacco smoke exposure: No How often do you have a drink containing alcohol: monthly or less How often do you have six or more drinks on one occasion: Never AUDIT-C Alcohol total score: 1 Non-prescribed substance use: denies use Caffeine: Yes (coffee daily) Exam Narrative: Exam Narrative: Well-nourished well-developed patient in no acute distress. Alert and oriented. Answers questions appropriately. Mood and affect are appropriate. Thoughts are goal oriented and rational. No tangential or magical thinking noted. Patient speaks in full sentences without needing to catch their breath. Does not appear ill or toxic. HEENT: Normocephalic atraumatic. Pupils are equally round reactive to light. Extraocular muscles are intact. Conjunctivae are moist without any icterus noted. Moist mucous membranes. Extremities: Right foot has multiple scars present did appear to be healing appropriately. The foot does have 2+ pitting edema. He the back of the foot just distal to the Achilles is red, hot and tender. Achilles appears to be intact, Kraft test is normal. Redness does not extend up into the ankle or down around the foot. Const: Vital Signs, click to edit/add: Vital Signs - 24 hr 11/04/23 02:49 Temperature 97.5 F L Pulse Rate [Left P ulse Oximeter] 93 Respiratory Rate 18 Blood Pressure [Ri ght Upper Arm] 157/103 H Pulse Oximetry 94 Oxygen Delivery Me thod Room Air Course Vital Signs Vital signs: Initial Vital Signs Temperature 97.5 F L 11/04/23 02:49 Temperature Source Temporal Artery Scan 11/04/23 02:49 Pulse Rate 93 11/04/23 02:49 Pulse Rhythm Regular 11/04/23 02:49 Respiratory Rate 18 11/04/23 02:49 Blood Pressure 157/103 H 11/04/23 02:49 Blood Pressure Mean 121 H 11/04/23 02:49 Blood Pressure Position Sitting 11/04/23 02:49 Pulse Oximetry 94 11/04/23 02:49 Oxygen Delivery Method Room Air 11/04/23 02:49 Vital Signs Temperature 97.5 F L 11/04/23 02:49 Pulse Rate 93 11/04/23 02:49 Respiratory Rate 18 11/04/23 02:49 Blood Pressure 157/103 H 11/04/23 02:49 Pulse Oximetry 94 11/04/23 02:49 Oxygen Delivery Method Room Air 11/04/23 02:49 Temperature 97.5 F L 11/04/23 02:49 Pulse Rate 93 11/04/23 02:49 Respiratory Rate 18 11/04/23 02:49 Blood Pressure 157/103 H 11/04/23 02:49 Pulse Oximetry 94 11/04/23 02:49 Oxygen Delivery Method Room Air 11/04/23 02:49 Medical Decision Making MDM Narrative Medical decision making narrative: 48-year-old male with increasing tenderness, redness after hearing a pop of his foot. He is approximately 2 months postop. His biggest concern today is infection given his history of recurrent cellulitis. We discussed imaging which she felt were not necessary since he does plan on a follow up with Dr. Cohn. Given his history of recurrent infections and the erythema of the posterior foot we did go ahead and decide put on Bactrim DS p.o. b.i.d, there is concern for possible MRSA per patient. Discharge Plan Discharge Additional Instructions: Take all antibiotics as prescribed. Follow-up with Dr. Cohn this coming week. Return to the ER if redness begins to spread, you develop fevers chills or vomiting, despite antibiotic treatment. Medications sent to [facility]. Prescriptions: No Action amoxicillin-pot clavulanate 875-125 mg tablet 1 tab PO Q12H Patient Comments: x10 days isotretinoin [Accutane] 40 mg capsule 40 mg PO BID Rx Instructions: must administer with a meal/food Follow Up/Referrals: PO WHITE DO [Primary Care Provider] - Stand Alone Forms: [employer] Info Instructions
== END 2023-11-04 03:16 | disposition home or self-care (01) ==
LOC: ED 03:08
PROVIDERS: Emergency Provider Family Medicine; PCP Student in an Organized Health Care Education/Training Program
DX: L53.9 Erythematous condition, unspecified (principal)
CPT/HCPCS: 99283

== ENCOUNTER 2023-11-06 23:00 | Emergency (ER) | payer OTHER, SELFPAY ==
[2023-11-06 23:08] VITALS: BP 170/100; PULSE 95; RESP 16; RESP 20; TEMP 36.6; O2SAT 99; BMI 31.5
--- NOTE | 2023-11-06 23:14 | XR_ITS ---
Patient: JENAE Retaan [place] Facility:?[facility] Patient ID:?[id number] Site Patient ID:?[id number]. Site :?[id number] Study:?XRay-Extremity Right foot-11/06/2023 11:48:37 PM Ordering Physician:Jas Final Report: Indication: recent surgery... slipped on ice today . Technique: Right foot, 3 views. Comparison: 06/22/2022 and 09/10/2023. Findings/Impression: Comminuted avulsion fracture at the Achilles insertion. Otherwise, no acute fractures identified. Orthopedic hardware in the calcaneus, 1st and 5th metatarsals appear grossly stable compared to 09/10/2023. No hardware fracture. Mild to moderate diffuse degenerative changes. Soft tissue swelling at the fracture site. Dictated by Anaid Sharp MD @ 11/07/2023 12:07:22 AM Signed by:?Anaid Sharp MD @11/07/2023 12:07:22 AM (Electronic Signature)
[2023-11-06] MEDS: OXYCODONE 5 MG TABLET PO (23:15)
--- NOTE | 2023-11-06 23:15 | ED_ITS ---
HPI - Extremity Injury (Lower) General Date Seen: 11/06/23 Chief Complaint: Post Op Complication Stated Complaint: Had surgery R Foot-Slipped on ice/Damaged it . Time Seen by Provider: 11/06/23 23:02 Source: patient Mode of arrival: ambulatory Limitations: no limitations History of Present Illness HPI Narrative: Patient is a 48-year-old male presenting for right heel pain. He states he sl ipped on the ice tonight and since having pain in his right heel near Achilles insertion site. He has had extensive foot surgery 2 months ago. He also hurt his foot a few days ago. Had imaging done this morning at [facility]. He fell again after those imaging. Has taken ibuprofen for pain with minimal improvement. No other injuries noted. Does note there is bruising where the pain is currently. Does have follow-up appointment set up for the next few days for ultrasound tomorrow in PT on Sunday. Has an appointment with his surgeon on 11/13/2023. Related Data Home Medications Medication Instructions Recorded Confirmed amoxicillin 875 mg-potassium 1 tab PO Q12H 07/02/22 11/06/23 clavulanate 125 mg tablet isotretinoin 40 mg capsule 40 mg PO BID 09/06/23 11/06/23 (Accutane) aspirin 81 mg capsule 81 mg PO DAILY 11/06/23 11/06/23 Allergies Allergy/AdvReac Type Severity Reaction Status Date / Time No Known Drug Allergies Allergy Verified 11/06/23 23:11 Review of Systems Narrative: Pertinent systems reviewed and were negative unless stated in HPI PFSH PFSH Social History Smoking Status: Former smoker Do you use any of these nicotine containing products: None Second hand tobacco smoke exposure: No How often do you have a drink containing alcohol: monthly or less How often do you have six or more drinks on one occasion: Never AUDIT-C Alcohol total score: 1 Non-prescribed substance use: denies use Caffeine: Yes (coffee daily) Exam Narrative: Exam Narrative: Const: Well-nourished, Well-developed, in mild distress Eyes: PERRL, no conjunctival injection, and symmetrical lids HENT: Atraumatic external nose and ears. Moist mucous membranes. MSK:Extremities w/o deformity, Normal Active ROM, well healing surgical sites seen on right foot. Bruising seen near Achilles insertion site. Is able to dorsiflex foot Skin: Warm, Dry. No rashes or lesions. Neuro: Normal Muscle tone, No focal neurological deficits. Psych: Awake, Alert, & Oriented x3. Appropriate mood and affect. Const: Vital Signs, click to edit/add: Vital Signs - 24 hr 11/06/23 23:08 11/06/23 23:08 Temperature 97.8 F Pulse Rate [Right Pulse Oximeter] 95 Respiratory Rate 20 Respiratory Rate [ Right Foot] 16 Blood Pressure [Ri ght Upper Arm] 170/100 H Pulse Oximetry 99 Oxygen Delivery Me thod Room Air Course Vital Signs Vital signs: Initial Vital Signs Temperature 97.8 F 11/06/23 23:08 Temperature Source Temporal Artery Scan 11/06/23 23:08 Pulse Rate 95 11/06/23 23:08 Respiratory Rate 20 11/06/23 23:08 Blood Pressure 170/100 H 11/06/23 23:08 Blood Pressure Mean 123 H 11/06/23 23:08 Blood Pressure Position Sitting 11/06/23 23:08 Pulse Oximetry 99 11/06/23 23:08 Oxygen Delivery Method Room Air 11/06/23 23:08 Vital Signs Temperature 97.8 F 11/06/23 23:08 Pulse Rate 95 11/06/23 23:08 Respiratory Rate 20 11/06/23 23:08 Blood Pressure 170/100 H 11/06/23 23:08 Pulse Oximetry 99 11/06/23 23:08 Oxygen Delivery Method Room Air 11/06/23 23:08 Temperature 97.8 F 11/06/23 23:08 Pulse Rate 95 11/06/23 23:08 Respiratory Rate 16 11/06/23 23:08 Blood Pressure 170/100 H 11/06/23 23:08 Pulse Oximetry 99 11/06/23 23:08 Oxygen Delivery Method Room Air 11/06/23 23:08 Medications Administered Medications: Discontinued Medications Generic Name Dose Route Start Last Admin Trade Name Freq PRN Reason Stop Dose Admin Oxycodone HCl 5 mg 11/06/23 23:12 11/06/23 23:15 Oxycodone 5 Mg Tablet PO 11/06/23 23:13 5 mg ONCE ONE Administration MDM - Extremity Injury (Lower) MDM Narrative Medical decision making narrative: Patient is a 48-year-old male presenting for pain in his right heel. X-rays will be ordered to better evaluate this since the fall occurred after his previous x-rays this morning. Oxycodone given for pain. X-rays are returned showing a comminuted avulsion fracture of the Achilles insertion point. This is consistent with his pain. Is difficult to tell if he has a rupture of the Achilles tendon. He has notable atrophy use of the muscles. I do not see a clear CT these tendon or palpate 1 at this time. I would put him in a splint with marked plantar flexion but he is currently wearing a boot already puts his foot and mild to moderate plantar flexion and he is scheduled to get an ultrasound tomorrow already. At that time they can better evaluate his Achilles tendon. You will also follow up with his surgeon sooner he states. Will give oxycodone for pain to instymeds. He is agreeable to this plan. Imaging Data Foot x-ray: Attestation: I have reviewed the pertinent imaging results. Radiologist's impression: Comminuted avulsion fracture at the Achilles insertion. Otherwise, no acute fractures identified. Orthopedic hardware in the calcaneus, 1st and 5th metatarsals appear grossly stable compared to 09/10/2023. No hardware fracture. Mild to moderate diffuse degenerative changes. Soft tissue swelling at the fracture site. Dictated by Anaid Sharp MD @ 11/07/2023 12:07:22 AM Discharge Plan Discharge Clinical Impression: Calcaneal fracture Qualifiers: Encounter type: initial encounter Calcaneus location: tuberosity Fracture type: closed Fracture morphology: avulsion Fracture alignment: nondisplaced Laterality: right Qualified Code(s): S92.034A - Nondisplaced avulsion fracture of tuberosity of right calcaneus, initial encounter for closed fracture Patient Disposition: Home, Self-Care Condition: Stable Instructions: Calcaneal Fracture (ED) Additional Instructions: Make sure to wear your boot with the insertion at all times until you get cleared by your surgeon. Take the oxycodone as needed for pain. Make sure you informed your surgeon and the sound recording technician tomorrow that you have a calcaneal fracture at the Achilles insertion site and there is concern for Achilles tendon rupture. Prescriptions: No Action amoxicillin-pot clavulanate 875-125 mg tablet 1 tab PO Q12H Patient Comments: x10 days isotretinoin [Accutane] 40 mg capsule 40 mg PO BID Rx Instructions: must administer with a meal/food aspirin 81 mg capsule 81 mg PO DAILY Follow Up/Referrals: PO WHITE DO [Primary Care Provider] - Stand Alone Forms: [employer] Info Instructions
[2023-11-07 00:30] VITALS: BP 165/89; PULSE 87; RESP 20; TEMP 36.6; O2SAT 99
== END 2023-11-07 00:30 | disposition home or self-care (01) ==
PROVIDERS: Emergency Provider Student in an Organized Health Care Education/Training Program; PCP Student in an Organized Health Care Education/Training Program
DX: S92.034A Nondisplaced avulsion fracture of tuberosity of right calcaneus, initial encounter for closed fracture (principal); W00.0XXA Fall on same level due to ice and snow, initial encounter
CPT/HCPCS: 29515; 73630; 99282; 99283; A9270

== ENCOUNTER 2023-12-17 07:50 | Day surgery (SDC) | payer OTHER, SELFPAY ==
[2023-12-17] VITALS (13 sets, daily range): BP systolic 136–177; BP diastolic 94–119; PULSE 60–73; RESP 16–18; TEMP 35.8–36.7; O2SAT 93–97; BMI 29.9
--- OUTSIDE RECORDS SUMMARY | 2023-12-17 07:52 | XMS_ITS | Clinical Summary ---
Author Name Unknown Organization [facility] Address [place], [place] [address] Care Team Providers Care Brick Layer Name Role Phone Fam Lewis DO Primary Care Provider [phone] Allergies No known active allergies Medications Medication Sig Dispensed Refills Start Date End Date Status polyethylene glycol-electrolyte (GOLYTELY) 236-22.74-6.74 -5.86 gram suspensionIndicati ons:Encounter for screening colonoscopy Drink 2 liters the day before colonoscopy and drink 2 liters 6 hours before colonoscopy appointment 4000 mL 07/11/2022 Active Myorisan 40 mg capsule Take 2 Capsules by mouth once daily. 09/19/2022 Active triamcinolone (ARISTOCORT; KENALOG) 0.1 % cream APPLY TO AFFECTED AREA ON HANDS TWICE A DAY FOR 2 WEEKS AT A TIME REPEAT NEEDED FOR FLARES 09/19/2022 Active durable medical equipment (DME)Indications:S /P orthopedic surgery, follow-up exam 01EF-XL Airselect, Standard, XLarge 1 Each 10/24/2023 Active durable medical equipment (DME)Indications:S /P orthopedic surgery, follow-up exam [id number] Achilles Wedge 1 Each 10/24/2023 Active trimethoprim-sulfa methoxazole, 160-800 mg, (BACTRIM DS, SEPTRA DS) tab 11/04/2023 Active apixaban (Eliquis DVT-PE Treat 30D Start) tablet in a dose packIndications:Ac [place] deep vein thrombosis (DVT) of right peroneal vein (HC) DVT/PE Treatment: Initial 10 mg PO BID for 7 days Followed by 5 mg PO BID 74 Tablet 11/07/2023 Active oxyCODONE (ROXICODONE) 5 mg immediate release tabletIndications: Acute deep vein thrombosis (DVT) of right peroneal vein (HC) Take 1 Tablet (5 mg) by mouth every 6 hours if needed (breakthrough pain). 12 Tablet 11/07/2023 Active oxyCODONE (ROXICODONE) 5 mg immediate release tabletIndications: Achilles tendon rupture, right, initial encounter Take 1-2 Tablets (5-10 mg) by mouth every 6 hours if needed for Pain. 20 Tablet 11/13/2023 Active durable medical equipment (DME)Indications:C alcific Achilles tendonitis 01EF-L Airselect, Standard, Large 1 Each 12/05/2023 Active apixaban (ELIQUIS) 5 mg tabletIndications: Acute deep vein thrombosis (DVT) of distal vein of right lower extremity (HC) Take 1 Tablet (5 mg) by mouth two times daily. 60 Tablet 12/10/2023 Active oxyCODONE (ROXICODONE) 5 mg immediate release tabletIndications: Achilles tendon rupture, right, initial encounter Take 1-2 Tablets (5-10 mg) by mouth every 4 hours if needed for Pain. 20 Tablet 12/17/2023 Active trimethoprim-sulfa methoxazole, 160-800 mg, (Bactrim DS) tabIndications:Izabel lulitis of left foot Take 1 Tablet by mouth two times daily for 7 days. 14 Tablet 12/05/2023 12/12/2023 Active Problems No known active problems Encounters Date Type Department Care Team Description 12/14/2023 1:40 PM CDT Preop Visit [facility] [address] [place] [address] Fam Lewis DO Preoperative Exam (Dr. Dejesus - 12/17/2023 - [facility] - RIGHT repair the Achilles rupture and remove the fracture fragments) 12/14/2023 Travel 12/10/2023 Telephone [facility] [place] [address] [address] Fam Lewis DO Results; Need Meds 12/06/2023 2:00 PM CDT Ancillary Procedure [facility] [address] [place] [address] 12/06/2023 1:45 PM CDT Ancillary Procedure [facility] [address] [place] [address] 12/06/2023 1:00 PM CDT Ancillary Procedure [facility] [address] [place] [address] 12/05/2023 3:30 PM CDT Office Visit [facility] [address] [place] [address] Vincent Dejesus DPM Consult (Left foot, ulcer/blister) 12/05/2023 Travel 11/28/2023 9:45 AM CDT Office Visit [facility] [address] [place] [address] Vincent Dejesus DPM Follow Up (Right ankle, achilles tendon rupture) 11/28/2023 Travel 11/22/2023 Telephone [facility] [address] [place] [address] Fam Lewis, Follow Up 11/22/2023 DOAC - Anticoagulation [facility] [address] [place] [address] Fam Lewis DO 11/22/2023 Orders Only [facility] [address] [place] [address] Fam Lewis, <No scans attached> 11/13/2023 3:45 PM CDT Office Visit [facility] [address] [place] [address] Vincent Dejesus DPM Post-op (Right foot/ankle, DOS 09/10/23) 11/13/2023 Travel 11/08/2023 Telephone [facility] [address] [place] [address] Vincent Dejesus DPM Surgical Followup 11/08/2023 Telephone [facility] [address] [place] [address] Rajesh Hayes DPM 11/07/2023 3:29 PM CDT - 11/07/2023 5:13 PM CDT Emergency [facility] [address] [place] [address] Bob Jackson DO Acute deep vein thrombosis (DVT) of right peroneal vein (HC) (Primary Dx) Discharge Disposition: Home Self Care 11/07/2023 2:00 PM CDT - 11/07/2023 3:28 PM CDT Hospital Encounter [facility] [address] [place] [address] S/P orthopedic surgery, follow-up exam 11/07/2023 Telephone [facility] [address] [place] [address] Vincent Dejesus DPM Follow Up 11/07/2023 Travel 11/06/2023 12:15 PM CDT Ancillary Procedure [facility] [address] [place] [address] 11/06/2023 Orders Only [facility] Scanner 1 scan: (1-Ord) [facility], XR FOOT RT MIN 3V, 11/06/2023 11/06/2023 Travel 11/06/2023 Refill [facility] [address] [place] [address] Rajesh Hayes, MARY Medication Management 10/24/2023 1:30 PM CDT Ancillary Procedure [facility] [address] [place] [address] 10/24/2023 1:00 PM CDT Office Visit [facility] [address] [place] [address] Vincent Dejesus DPM Post-op (Right 6 week post op visit, DOS 09/10/23) 10/24/2023 Travel 10/02/2023 Telephone [facility] [address] [place] [address] Vincent Dejesus DPM Follow Up (Cast change) 09/26/2023 1:00 PM [employer] Office Visit [facility] [address] [place] [address] Vincent Dejesus DPTrena Post-op (Right foot/ankle, DOS 09/10/23, 2 week post op) 09/26/2023 Travel 09/19/2023 Refill [facility] [address] [place] [address] Vincent Dejesus DPM Refill Request (oxyCODONE (ROXICODONE) 5 mg immediate release tablet) from Last 3 Months Immunizations Name Administration Dates Next Due COVID-19 vaccine ([employer] NTMedShape 30mcg/0.3mL) 12YO+ BIVALENT PF, MDV 07/11/2022 Influenza, IIV4 07/11/2022,06/10/2018 Influenza, IIV4 (=>6mos) MDV 04/28/2015 Tdap 06/02/2015 Social History Tobacco Use Types Packs/Day Years Used Date Smoking Tobacco: Never Smokeless Tobacco: Never Tobacco Cessation:Counseling Given: Yes Comments:some smoking in college Alcohol Use Standard Drinks/Week Comments Yes 0 (1 standard drink = 0.6 oz pur e alcohol) social, casual PHQ-2 Answer Date Recorded PHQ-2 TOTAL SCORE 0 08/14/2023 Social Connections Answer Date Recorded Frequency of Communication with Friends and Fami ly 0 12/14/2023 Financial Resource Strain Answer Date R ecorded Difficulty of Paying Living Expenses 3 12/14/2023 Difficulty of Paying Living Expenses Not on file 12/14/2023 Food Insecurity Answer Date Recorded Worried About Running Out of Food in the Last Ye ar 1 12/14/2023 Transportation Needs Answer Date Record ed Lack of Transportation (Medical) 1 12/14/2023 Housing Stability Answer Date Recorded Unable to Pay for Housing in the Last Year 1 12/14/2023 Sex and Gender Information Value Date Recorded Sex Assigned at Not on file Gender Identity Not on file Sexual Orientation Not on file Obstetrics History Last Filed Vital Signs Vital Sign Reading Time Taken Comments Blood Pressure 127/89 12/14/2023 1:50 PM CDT Pulse 88 12/14/2023 1:50 PM CDT Temperature 36.9 ??C (98.4 ??F) 12/05/2023 4:21 PM CD T Respiratory Rate 18 11/07/2023 3:57 PM CDT Oxygen Saturation 98% 12/14/2023 1:50 PM CDT Inhaled Oxygen Concentration - - Weight 145.6 kg (321 lb) 11/07/2023 3:57 PM CDT Height 203.2 cm (6' 8) 11/07/2023 3:57 PM CDT Body Mass Index 35.26 11/07/2023 3:57 PM CDT Plan of Treatment Upcoming Encounters Date Type Department Care Team (Late st Contact Info) Description 12/17/2023 10:30 AM CDT Office Visit [facility] at [address] [phone] Vincent Dejesus DPM [address] [place] [address] 12/19/2023 3:00 PM CDT Office Visit [facility] [address] [place] [address] Vincent Dejesus DPM [address] [place] [address] 12/24/2023 3:00 PM CDT Office Visit [facility] [address] [place] [address] Santa Petersen MD [address] [place] [address] 01/02/2024 8:45 AM CDT Office Visit [facility] [address] [place] [address] Vincent Dejesus DPM [address] [place] [address] 01/25/2024 8:05 AM CDT Office Visit [facility] [address] [place] [address] Fam Lewis DO [address] [place] [address] Health Maintenance Due Date Last Done Comments Hepatitis C screening for age 18-79 1993 COVID-19 vaccine series (2022- season) 2023 07/11/2022, 08/03/2021, 10/23/2020, Additional history exists Influenza for age 9-49 04/13/2024 , 06/10/2018, 04/28/2015 BMI (ht and wt [...] Procedure Name Priority Date/Time Associated Diagnosis Comments US VENOUS LOWER EXTREMITY RIGHT Routine 12/06/2023 1:37 PM CDT Acute deep vein thrombosis (DVT) of distal vein of right lower extremity (HC) XR FOOT 3 VIEWS RIGHT Routine 12/06/2023 1:16 PM CDT Calcific Achilles tendonitis Follow-up examination after orthopedic surgery XR CALCANEUS 2 VIEWS RIGHT Routine 12/06/2023 1:15 PM CDT Calcific Achilles tendonitis Follow-up examination after orthopedic surgery SPLINT APPLICATION Routine 11/07/2023 4: [address] ANKLE RIGHT WO STAT 11/07/2023 4:[address] FOOT RIGHT WO STAT 11/07/2023 4:13 PM CDT US VENOUS LOWER EXTREMITY RIGHT STAT 11/07/2023 3:20 PM CDT S/P orthopedic surgery, follow-up exam XR FOOT 3 VIEWS RIGHT SHE 11/06/2023 12:11 PM CDT S/P orthopedic surgery, follow-up exam SCAN-RADIOLOGY REPORT 11/06/2023 12:00 AM CDT XR FOOT 3 VIEWS RIGHT Routine 10/24/2023 1:24 PM CDT S/P orthopedic surgery, follow-up exam COLONOSCOPY SCREENING Routine 10/12/2022 8:08 AM [employer] Screening for colon cancer LIPID PANEL W REFLEX MEASURED LDL Routine 07/03/2022 Screening for lipid disorders from Last 3 Months or Most Recently Relevant to Health Maintenance Results * US VENOUS LOWER EXTREMITY RIGHT (12/06/2023 1:37 PM CDT) Only the most recent of2 resultswithin the time period is included. Anatomical Region Laterality Modality LEGS, LEG R, Abdomen Ultrasound 12/06/2023 3:13 PM CDT Impressions 12/06/2023 3:13 PM CDT Clearing of DVT from the popliteal vein compared to the prior study. Persistent nonocclusive clot within the right peroneal vein. Improved blood flow within the posterior tibial vein. Dictated by Abrahan Aquino MD @ 12/06/2023 3:13:02 PM (Electronically Signed) Narrative 12/06/2023 3:13 PM CDT For Patients: ??As a result of the 21st Century Cures Act, medical imaging exams and procedure reports are released immediately into your electronic medical record. ??You may view this report before your referring provider. ??If you have questions, please contact your health care provider. INDICATION: Follow-up DVT COMPARISON: 11/07/2023 TECHNIQUE: A compression venous ultrasound exam was performed of the right lower extremity using allen-scale imaging, color Doppler and spectral Doppler analysis. FINDINGS: Sonographic imaging of the right lower extremity demonstrates normal compressibility and color Doppler venous blood flow within the common femoral vein, deep femoral vein, and the proximal greater saphenous vein. Within the thigh, the femoral vein is patent and compressible. The popliteal vein now shows normal compressibility and Doppler flow. Partial compression of the right peroneal vein again noted. Limited imaging of the contralateral groin demonstrates a normal spectral waveform and color Doppler venous blood flow within the left common femoral vein. Procedure Note Abrahan Aquino MD - 12/06/2023 For Patients: As a result of the Cures Act, medical imagingexams and procedure reports are released immediately into your electronicmedical record. You may view this report before your referring provider.If you have questions, please contact your health care provider. INDICATION: Follow-up DVT COMPARISON: 11/07/2023 TECHNIQUE: A compression venous ultrasound exam was performed of the right lowerextremity using allen-scale imaging, color Doppler and spectral Doppleranalysis. FINDINGS: Sonographic imaging of the right lower extremity demonstrates normalcompressibility and color Doppler venous blood flow within the commonfemoral vein, deep femoral vein, and the proximal greater saphenous vein.Within the thigh, the femoral vein is patent and compressible. Thepopliteal vein now shows normal compressibility and Doppler flow. Partialcompression of the right peroneal vein again noted. Limited imaging of the contralateral groin demonstrates a normal spectralwaveform and color Doppler venous blood flow within the left commonfemoral vein. IMPRESSION: Clearing of DVT from the popliteal vein compared to the prior study.Persistent nonocclusive clot within the right peroneal vein. Improvedblood flow within the posterior tibial vein. Dictated by Abrahan Aquino MD @ 12/06/2023 3:13:02 PM (Electronically Signed) Sienai Joshua DO US * XR FOOT 3 VIEWS RIGHT (12/06/2023 1:16 PM CDT) Only the most recent of3 resultswithin the time period is included. Anatomical Region Laterality Modality FEET, FOOT R Computed Radiogr aphy 12/06/2023 3:20 PM CDT Impressions 12/06/2023 3:20 PM CDT Fracture deformity of the superior posterior calcaneus noted with early callus formation. Cannulated screw fixation across the calcaneal osteotomy remain intact. Stable appearance and alignment of the 1st metatarsal osteotomy with intact malleable plate and screw fixation hardware. Intact hardware within the 5th metatarsal head. Degenerative changes at the 2nd MTP joint. Dictated by Abrahan Aquino MD @ 12/06/2023 3:20:03 PM (Electronically Signed) Narrative 12/06/2023 3:20 PM CDT For Patients: ??As a result of the Cures Act, medical imaging exams and procedure reports are released immediately into your electronic medical record. ??You may view this report before your referring provider. ??If you have questions, please contact your health care provider. Indication: Follow-up surgery Technique: Three views right foot Comparison: 11/06/2023 and 11/07/2023 Procedure Note Abrahan Aqunio MD - 12/06/2023 For Patients: As a result of the s Act, medical imagingexams and procedure reports are released immediately into your electronicmedical record. You may view this report before your referring provider.If you have questions, please contact your health care provider. Indication: Follow-up surgery Technique: Three views right foot Comparison: 11/06/2023 and 11/07/2023 IMPRESSION: Fracture deformity of the superior posterior calcaneus noted with earlycallus formation. Cannulated screw fixation across the calcaneal osteotomyremain intact. Stable appearance and alignment of the 1st metatarsalosteotomy with intact malleable plate and screw fixation hardware. Intacthardware within the 5th metatarsal head. Degenerative changes at the 2ndMTP joint. Dictated by Abrahan Aquino MD @ 12/06/2023 3:20:03 PM (Electronically Signed) Vincent Dejesus DPM GENERAL IMAGING * XR CALCANEUS 2 VIEWS RIGHT (12/06/2023 1:15 PM CDT) Anatomical Region Laterality Modality CALCANEI, CALCANEUS R Computed R adiography 12/06/2023 3:18 PM CDT Impressions 12/06/2023 3:18 PM CDT Fracture deformity of the superior posterior calcaneus again noted with surrounding soft tissue fullness. Calcaneal osteotomy screws remain intact. Dorsal midfoot degenerative joint disease. Dictated by Abrahan Aquino MD @ 12/06/2023 3:18:43 PM (Electronically Signed) Narrative 12/06/2023 3:18 PM CDT For Patients: ??As a result of the Cures Act, medical imaging exams and procedure reports are released immediately into your electronic medical record. ??You may view this report before your referring provider. ??If you have questions, please contact your health care provider. Indication: Follow-up fracture Technique: Two views right calcaneus Comparison: CT 11/07/2023 Procedure Note Abrahan Aquino MD - 12/06/2023 For Patients: As a result of the Cures Act, medical imagingexams and procedure reports are released immediately into your electronicmedical record. You may view this report before your referring provider.If you have questions, please contact your health care provider. Indication: Follow-up fracture Technique: Two views right calcaneus Comparison: CT 11/07/2023 IMPRESSION: Fracture deformity of the superior posterior calcaneus again noted withsurrounding soft tissue fullness. Calcaneal osteotomy screws remainintact. Dorsal midfoot degenerative joint disease. Dictated by Abrahan Aquino MD @ 12/06/2023 3:18:43 PM (Electronically Signed) Vincent Dejesus DPM GENERAL IMAGING * SPLINT APPLICATION (11/07/2023 4:55 PM CDT) Narrative Bob Jackson, - 11/07/2023 4:55 PM CDT Bob Jackson, DO ? 11/07/2023 ??4:55 PM SPLINT APPLICATION Date/Time: 11/07/2023 4:55 PM Performed by: Bob Jackson DO Authorized by: Bob Jackson DO ?? Consent: ??Consent obtained: ??Verbal ??Consent given by: ??Patient [place] protocol: ??Patient identity confirmed: ??Verbally with patient Pre-procedure details: ??Distal neurologic exam: ??Normal ??Distal perfusion: distal pulses strong and brisk capillary refill ?? Procedure details: ??Location: ??Leg ??Leg location: ??L lower leg ??Cast type: ??Short leg ??Supplies: ??Plaster Post-procedure details: ??Distal neurologic exam: ??Normal ??Distal perfusion: distal pulses strong and brisk capillary refill ?Procedure completion: ??Tolerated Bob Jackson DO PROCEDURE ORD * CT ANKLE RIGHT WO (11/07/2023 4:13 PM CDT) Anatomical Region Laterality Modality ANKLE R Computed Tomogra phy 11/07/2023 4:38 PM CDT Impressions 11/07/2023 4:38 PM CDT 1. Comminuted avulsion fracture of the posterior superior calcaneal tuberosity with superior displacement. Displaced screws in the fracture gap. Achilles tendinopathy. 2. Calcaneal osteotomy is intact. 3. 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 4. Diffuse subcutaneous edema. Please note that all CT scans at this facility use dose modulation, iterative reconstruction, and/or weight-based dosing when appropriate to reduce radiation dose to as low as reasonably achievable. Dictated by Won Morales MD @ 11/07/2023 4:38:18 PM (Electronically Signed) Narrative 11/07/2023 4:38 PM CDT For Patients: ??As a result of the Cures Act, medical imaging exams and procedure reports are released immediately into your electronic medical record. ??You may view this report before your referring provider. ??If you have questions, please contact your health care provider. EXAM: CT OF THE RIGHT ANKLE, WITHOUT CONTRAST CLINICAL INDICATION: Postop pain. COMPARISON STUDIES: 11/06/2023 radiographs. TECHNICAL: Non-contrast CT of the ankle with axial images. Sagittal oblique and coronal oblique reformatted images were created. ?? FINDINGS: OSSEOUS STRUCTURES: Tibia: No acute fractures. Ossicles adjacent to the medial malleolus consistent with sequela from prior injury. Fibula: Postoperative change from anterior talofibular reconstruction. Talus: Postoperative change anterior talofibular ligament reconstruction. Calcaneous: There are displaced fragments of the posterior superior greater tuberosity that measure 1.7 x 2.0 x 1 0 cm in size in aggregate attached to the distal Achilles tendon. There are 2 1.0 cm screw fragments in the soft tissues of the gap from the retracted tuberosity fragments. Calcaneal osteotomy with screw fixation. The hardware fixation is intact. There is good apposition at the osteotomy. Midfoot: No fractures. JOINT SPACES: Ankle: Mild narrowing and hypertrophic changes. Subtalar, Talonavicular and Calcaneocuboid: Mild hypertrophic changes in the posterior subtalar and talonavicular joints. Midfoot and Midfoot-forefoot junction: Mild hypertrophic changes in the navicular cuneiform articulations. SOFT TISSUES: Diffuse subcutaneous edema. No subcutaneous hematoma. No soft tissue emphysema. MUSCLES: No intramuscular mass or hematoma. No muscle atrophy. TENDONS: The thickened Achilles tendon is retracted. No subluxation of the peroneal tendons. Procedure Note Won Morales MD - 11/07/2023 For Patients: As a result of the Cures Act, medical imagingexams and procedure reports are released immediately into your electronicmedical record. You may view this report before your referring provider.If you have questions, please contact your health care provider. EXAM: CT OF THE RIGHT ANKLE, WITHOUT CONTRAST CLINICAL INDICATION: Postop pain. COMPARISON STUDIES: 11/06/2023 radiographs. TECHNICAL: Non-contrast CT of the ankle with axial images. Sagittal oblique andcoronal oblique reformatted images were created. FINDINGS: OSSEOUS STRUCTURES: Tibia: No acute fractures. Ossicles adjacent to the medial malleolusconsistent with sequela from prior injury. Fibula: Postoperative change from anterior talofibular reconstruction. Talus: Postoperative change anterior talofibular ligamentreconstruction. Calcaneous: There are displaced fragments of the posterior superiorgreater tuberosity that measure 1.7 x 2.0 x 1 0 cm in size in aggregateattached to the distal Achilles tendon. There are 2 1.0 cm screw fragmentsin the soft tissues of the gap from the retracted tuberosity fragments.Calcaneal osteotomy with screw fixation. The hardware fixation is intact.There is good apposition at the osteotomy. Midfoot: No fractures. JOINT SPACES: Ankle: Mild narrowing and hypertrophic changes. Subtalar, Talonavicular and Calcaneocuboid: Mild hypertrophic changes inthe posterior subtalar and talonavicular joints. Midfoot and Midfoot-forefoot junction: Mild hypertrophic changes in thenavicular cuneiform articulations. SOFT TISSUES: Diffuse subcutaneous edema. No subcutaneous hematoma. No soft tissueemphysema. MUSCLES: No intramuscular mass or hematoma. No muscle atrophy. TENDONS: The thickened Achilles tendon is retracted. No subluxation of the peronealtendons. IMPRESSION: 1. Comminuted avulsion fracture of the posterior superior calcanealtuberosity with superior displacement. Displaced screws in the fracturegap. Achilles tendinopathy. 2. Calcaneal osteotomy is intact. 3. 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 4. Diffuse subcutaneous edema. Please note that all CT scans at this facility use dose modulation,iterative reconstruction, and/or weight-based dosing when appropriate toreduce radiation dose to as low as reasonably achievable. Dictated by Won Morales MD @ 11/07/2023 4:38:18 PM (Electronically Signed) Bob Jackson DO CT * CT FOOT RIGHT WO (11/07/2023 4:13 PM CDT) Anatomical Region Laterality Modality FOOT R Computed Tomogra phy 11/07/2023 4:44 PM CDT Impressions 11/07/2023 4:44 PM CDT 1. Uncomplicated 1st metatarsal and 5th metatarsal osteotomies with internal fixation. 2. Dorsal and lateral subcutaneous edema. 3. 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 4. Please see CT of the ankle for remainder of findings. Please note that all CT scans at this facility use dose modulation, iterative reconstruction, and/or weight-based dosing when appropriate to reduce radiation dose to as low as reasonably achievable. Dictated by Won Morales MD @ 11/07/2023 4:44:48 PM (Electronically Signed) Narrative 11/07/2023 4:44 PM CDT For Patients: ??As a result of the Century Cures Act, medical imaging exams and procedure reports are released immediately into your electronic medical record. ??You may view this report before your referring provider. ??If you have questions, please contact your health care provider. EXAM: CT OF THE RIGHT FOOT, WITHOUT CONTRAST CLINICAL INDICATION: Foot pain following surgery. COMPARISON PLAIN FILMS: 10/08/2023. COMPARISON CROSS-SECTIONAL IMAGING STUDIES: CT ankle from today. TECHNICAL: Non-contrast CT of the foot with axial images. Sagittal oblique and coronal oblique images were created. ?? FINDINGS: OSSEOUS STRUCTURES: First metatarsal diaphyseal osteotomy with plate and screw fixation. The hardware is intact. There is good alignment at the osteotomy. Distal 5th metatarsal osteotomy with screw fixation. There is good alignment at the osteotomy. No acute fractures are evident. Calcaneal osteotomy with screw fixation and good apposition, anterior talofibular ligament reconstruction and avulsion fracture of the posterior superior calcaneal tuberosity are again identified. JOINT SPACES: First MTP joint osteoarthritis. The TMT joints are unremarkable. Normal alignment of the TMT joints. TENDONS AND MUSCLES: The flexor and extensor tendons are intact. Diffuse muscular atrophy. SOFT TISSUES: Dorsal and lateral subcutaneous edema. No subcutaneous hematoma. No soft tissue emphysema. Procedure Note Won Morales MD - 11/07/2023 For Patients: As a result of the Cures Act, medical imagingexams and procedure reports are released immediately into your electronicmedical record. You may view this report before your referring provider.If you have questions, please contact your health care provider. EXAM: CT OF THE RIGHT FOOT, WITHOUT CONTRAST CLINICAL INDICATION: Foot pain following surgery. COMPARISON PLAIN FILMS: 10/08/2023. COMPARISON CROSS-SECTIONAL IMAGING STUDIES: CT ankle from today. TECHNICAL: Non-contrast CT of the foot with axial images. Sagittal oblique andcoronal oblique images were created. FINDINGS: OSSEOUS STRUCTURES: First metatarsal diaphyseal osteotomy with plate and screw fixation. Thehardware is intact. There is good alignment at the osteotomy. Distal 5th metatarsal osteotomy with screw fixation. There is goodalignment at the osteotomy. No acute fractures are evident. Calcaneal osteotomy with screw fixation and good apposition, anteriortalofibular ligament reconstruction and avulsion fracture of the posteriorsuperior calcaneal tuberosity are again identified. JOINT SPACES: First MTP joint osteoarthritis. The TMT joints are unremarkable. Normalalignment of the TMT joints. TENDONS AND MUSCLES: The flexor and extensor tendons are intact. Diffuse muscular atrophy. SOFT TISSUES: Dorsal and lateral subcutaneous edema. No subcutaneous hematoma. No softtissue emphysema. IMPRESSION: 1. Uncomplicated 1st metatarsal and 5th metatarsal osteotomies withinternal fixation. 2. Dorsal and lateral subcutaneous edema. 3. 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 4. Please see CT of the ankle for remainder of findings. Please note that all CT scans at this facility use dose modulation,iterative reconstruction, and/or weight-based dosing when appropriate toreduce radiation dose to as low as reasonably achievable. Dictated by Won Morales MD @ 11/07/2023 4:44:48 PM (Electronically Signed) CarlosAbrahan Jackson DO CT * SCAN-RADIOLOGY REPORT (11/06/2023 12:00 AM CDT) Anatomical Region Laterality Modality Other Scanner OTHER * COLONOSCOPY (10/12/2022 8:09 AM VP CUSTOMER SERVICE) 10/12/2022 8:09 AM VP CUSTOMER SERVICE Narrative Transcriptions Nolan Alaniz MD - 10/12/2022 9:15 AM CST Patient Name: Charli Holland Procedure Date: 10/12/2022 Gender: Male Date of : 1975 Admit Type: Outpatient Procedure: Colonoscopy Proceduralist: Nolan Alaniz MD , Maddison Josue (Nurse), Nell Carroll (Nurse) Referring MD: Fam Lewis Indications/Pre-Op Diagnosis: Screening for colorectal malignant neoplasm, This is the patient's first colonoscopy Medications: Fentanyl 100 micrograms IV, Midazolam 4 mgIV, The level of sedation administered wasmoderate Procedure Description: The patient had risks, benefits and alternatives explained to andgave informed consent. The patient had a stable cardiopulmonary status and judged an adequate candidate for conscious sedation. The endoscope [id number] was passed through the anus andadvanced to the cecum, identified by appendiceal orifice and ileocecal valve.The colonoscopy was performed without difficulty. The patient toleratedthe procedure well. The quality of the bowel preparation was good. The ileocecal valve, appendiceal orifice, and rectum were photographed. Complications: No immediate complications. Estimated Blood Loss & Specimen: Estimated blood loss: none. Specimen collected - None Findings: The perianal and digital rectal examinations were normal. The colon (entire examined portion) appeared normal. Impressions/Post-Op Diagnosis: - The entire examined colon is normal. - No specimens collected. Recommendation: - Patient has a contact number available for emergencies. The signsand symptoms of potential delayed complications were discussed with the patient. Return to normal activities tomorrow. Written discharge instructions were provided to the patient. - Resume previous diet. - Continue present medications. - Repeat colonoscopy in 10 years for screening purposes. Moderate Sedation: A time out was performed before the procedure. Moderate (conscious) sedation was administered by the endoscopy nurse and supervised bythe endoscopist. The following parameters were monitored: oxygensaturation, heart rate, blood pressure, EKG, CO2, respiratory rate, adequacy of pulmonary ventilation and reponse to care. Please refer to the patient's medical record flowsheets and nursing notes for moderate sedation details. Total physician intraservice time was 20 minutes. Nolan Alaniz MD 10/12/2022 9:15:41 AM This report has been signed electronically. Note Initiated On: 10/12/2022 8:09 AM Procedure Code(s): --- Professional --- 11789, Colonoscopy, flexible; diagnostic, including collection of specimen(s) bybrushing or washing, when performed (separateprocedure) Diagnosis Code(s): --- Professional --- Z12.11, Encounter for screening formalignant neoplasm of colon CPT copyright 2020 [employer]. All rights reserved. The codes documented in this report are preliminary and upon certified medical coder reviewmay be revised to meet current compliance requirements. Scope In: 8:53:06 AM Scope Withdrawal Time 0 hours 13 minutes 33 seconds Scope Out: 9:11:04 AM Nolan Alaniz MD PROCEDURE ORD * (ABNORMAL) LIPID PANEL W REFLEX MEASURED LDL [[id number]] (07/03/2022) CHOLESTEROL,TOTAL 197(EXTER NAL) mg/dL OTHER-NOT LISTED-ADD NARRATIVE DETAILS HDL CHOLESTEROL 39(SALES AND SERVICE REPRESENTATIVE AL) mg/dL OTHER-NOT LISTED-ADD NARRATIVE DETAILS LDL CHOLESTEROL 131(EXTER NAL) mg/dL OTHER-NOT LISTED-ADD NARRATIVE DETAILS CHOL/HDL RATIO 5.09(EXTE RNAL) OTHER-NOT LISTED-ADD NARRATIVE DETAILS TRIGLYCERIDES 135(EXTER NAL) mg/dL OTHER-NOT LISTED-ADD NARRATIVE DETAILS Blood BLOOD SPECIMEN / Unknown 07/03/2022 Narrative OTHER-NOT LISTED-ADD NARRATIVE DETAILS - 07/05/2022 [facility] Notice: This testing was ordered by an outside provider and performed by [facility]. The original result report can be found in the patient record as a CareEverywhere scan result from [facility]. [facility] CHEMISTRY OTHER-NOT LISTED-ADD NARRATIVE DETAILS from Last 3 Months or Most Recently Relevant to Health Maintenance Care Teams Brick Layer Relationship Specialty Start Date End Date Fam Lewis DO [address] [place] [address] PCP - General Family Practice 10/16/22
[2023-12-17] MEDS: LACTATED RINGERS 1000 ML 1,000 ML 100 ML IV ×2 (08:36→11:01)
[2023-12-17] MEDS: fentaNYL 100 MCG/2 ML inj IVP (09:42)
[2023-12-17] MEDS: MIDAZOLAM HCL 1 MG/ML inj IVP (09:42)
--- NOTE | 2023-12-17 09:48 | XR_ITS ---
Patient: JENAE Retana [place] Facility:?[facility] Patient ID:?[id number] Site Patient ID:?[id number]. Site :?1975 Study:?XRay-Extremity Right FOOT-12/17/2023 12:40:40 PM Ordering Physician:YOKO Final Report: Indication: Calcaneal surgery Technique: One fluoroscopic image of the right hindfoot. Fluoroscopic time 43.2 seconds. IMPRESSION: Fluoroscopic guidance for revision about the calcaneal osteotomy and placement of a soft tissue anchor related to fixation of the distal Achilles tendon. Dictated by Abrahan Aquino MD @ 12/17/2023 6:53:04 PM Signed by:?Abrahan Aquino MD @12/17/2023 6:53:04 PM (Electronic Signature)
--- NOTE | 2023-12-17 09:50 | SUR.PREOP ---
TIME?OUT:?0940 PT/RN/MDA?VERIFICATION?OF?SURGICAL?SITE,?PROCEDURE,?AND?CONSENT OBTAINED?PRIOR?TO?INVASIVE?PROCEDURE.
--- NOTE | 2023-12-17 10:06 | W.ANESCHARGE ---
Anesthesia Charges Start Date/Time Anesthesia Start Date: 12/17/23 Anesthesia Start Time: 09:44 Stop Date/Time Anesthesia Stop Date: 12/17/23 Anesthesia Stop Time: 13:11
[2023-12-17] MEDS: CEFAZOLIN 2 GM INJ IVP (10:07)
--- NOTE | 2023-12-17 10:07 | W.PM.NB ---
Nerve Block Nerve Block Time Seen by Provider: 09:40 Date Seen: 12/17/23 Type of block requested by surgeon for post-operative analgesia: popliteal Side: right Time out performed: Yes Verification of patient name: Yes Verification of date of : Yes Site marking: site marked Name of person performing procedure: Jeff Continuous monitoring Was continuous monitoring of O2 sat, B/P, ekg monitor, recorded every 15 minutes?: Yes Procedure Checklist: sterile prep, needles and gloves Ultrasound guided. Images saved: Yes Medications given in 5ml increments after negative aspiration: Ropivicaine %: 0.5 mL: 20 Needle gauge: 22 Patient tolerated procedure well: Yes Additional comments: Needle noted adjacent to nerve Block Charges Block Charge (with Pro Fee): Sciatic Nerve Use of Ultrasound Machine for Block: Yes- US Guidance/pain block
[2023-12-17] MEDS: BUPIVACAINE 0.25% 30 ML INJECTION (12:44)
--- NOTE | 2023-12-17 12:48 | SUR.OPER ---
per surgeon 4.75mm swivel lock explanted 12/17/23
--- NOTE | 2023-12-17 13:12 | W.ANESCHARGE ---
Anesthesia Charges Start Date/Time Anesthesia Start Date: 12/17/23 Anesthesia Start Time: 09:44 Stop Date/Time Anesthesia Stop Date: 12/17/23 Anesthesia Stop Time: 13:11
[2023-12-17] MEDS: MEPERIDINE 25 MG/ML INJ 12.5 MG IVP (13:17)
--- NOTE | 2023-12-17 16:34 | W.PM.PODPROC ---
Date of Procedure: 12/17/23 Surgeon: Vincent Dejesus DPM Pre-op Diagnosis: Achilles tendon rupture with avulsion fracture calcaneus right Post-op Diagnosis: Achilles tendon rupture with avulsion fracture calcaneus right Type of Procedure: 1. Repair of Achilles tendon rupture right 2. FHL tendon transfer right 3. Removal of fracture fragments right calcaneus Indications: Patient sustained a avulsion type rupture of the Achilles tendon with fracturing of the calcaneus. Surgical intervention was delayed due to deep venous thrombosis. Based on ultrasound the clot has cleared enough to proceed safely with surgery. I reviewed the procedure, recovery, expectation potential complications. These include but are not limited to: Poor wound healing, infection, continued pain, potential need for future surgery, recurrent DVT, PE, complex regional pain syndrome and possible . He understands risks and written consent was obtained. Site was marked. Procedure Description: Patient was given a preoperative popliteal block by Anesthesia. Was brought the operating room and placed under general anesthesia. He was then rolled into a prone position on the operating room table. He was prepped and draped in sterile fashion. Standard time-out protocol was followed. Right limb was then exsanguinated and the tourniquet inflated. Linear incision was made over the Achilles tendon insertion following the old incision and then angling gently medial extending along the medial Achilles tendon. Incision was carried down through skin subcutaneous tissues. Paratenon was severely scarred down and reflected mediolateral. The anchors from the calcaneus were clearly visible and had both pulled out completely. The SwiveLock component also had pulled out. Old suture and the SwiveLock anchors were removed. The distal Achilles was released from the bone fracture fragments from the dorsal posterior calcaneus. All fracture fragments removed. The remaining tendon was healthy without enlarged and was thus debrided accordingly. Posterior calcaneus was debrided as well. The more superior screw of the 2 in the calcaneus from the previous surgery was removed. The more inferior screw was left in place. The Achilles tendon was released mediolateral and then reflected proximal. Once free the Arthrex PARS jig was used to pass FiberTape through the distal Achilles tendon allowing us to lock to sutures through the Achilles an additional 3rd nonlocking suture. This allowed control of the Achilles and medial to pull it down easily onto the calcaneus. We turned our attention to the area anterior to the Achilles and blunt dissection was carried down to the flexor hallucis longus muscle belly. Follow the muscle distally to the tendon. With the foot plantar flexed and the hallux plantar flexed a short harvest of the tendon was performed. Whipstitch was placed through the tendon. Guide pin was then placed on the dorsal posterior calcaneus and drilled from superior to inferior and slightly lateral to avoid the plantar screw. C-arm confirmed position. This was then over drilled to 25 mm with a 6.5 mm drill. The whipstitch suture was placed through button and the button was deployed through the drill hole to the plantar calcaneus. Was appropriately tensioned which then pulled the FHL tendon through the drill hole into the calcaneus. With foot in plantar flexion the tendon was tensioned appropriately and locked by placing a suture knot through the tendon. Next a 6.25mm bio tenodesis screw was inserted to further reinforce the transfer. Wound was thoroughly irrigated normal sterile saline. Next the Achilles tendon was brought down to the posterior superior calcaneus. Medial sutures were then anchored into the calcaneus using a 5.5 mm SwiveLock anchor and the lateral sutures were anchored to the calcaneus using a 5.5 mm SwiveLock anchor. This was done with the foot in physiologic tension with plantar flexion. Next a FiberTak anchor was placed centrally just anterior to the advanced Achilles tendon. This allowed us to pull the now reduced Achilles tendon firmly onto the calcaneus without tension on the FiberTak anchor. Tension appeared restored to the Achilles tendon and position was optimal. Location paratenon and subcutaneous tissues reapproximated with 3-0 Vicryl. Subcutaneous tissues reapproximated 4-0 Monocryl and skin closed with 4-0 Prolene. Additional 20 mL of 0.25% Marcaine plain was injected along the incision. Sterile dressing was then applied. He is placed in a well-padded plaster posterior splint with stirrups. Position was gravity dorsiflexion. Tourniquet was released normal capillary fill time returned all digits. Tourniquet was released after 2 hours and then was released for more than 30 minutes before being reinflated for closure. He was transferred from OR to PACU vital signs stable and vascular status intact. He will be discharged home per Anesthesia. He is given oxycodone for pain. Will also take Tylenol. He will start his Eliquis in 6-8 hours from returning home. Strict nonweightbearing. Follow up in clinic later this week. Anesthesia: GETA and regional Hemostasis: thigh Estimated blood loss (mL): 200 Implants: Arthrex FHL tendon transfer kit with suture button and 6.25mm bio tenodesis screw, Arthrex SwiveLock 5.5 mm screws x2, FiberTak anchor x1, Arthrex FiberTape times 4. Specimens: none sent Disposition: PACU
== END 2023-12-17 15:19 | disposition home or self-care (01) ==
PROVIDERS: PCP Student in an Organized Health Care Education/Training Program; Visit Provider Podiatrist
PROC: (CPT 27650; principal; 2023-12-17 09:00)
DX: S86.011A Strain of right Achilles tendon, initial encounter (principal); S92.031A Displaced avulsion fracture of tuberosity of right calcaneus, initial encounter for closed fracture; G89.18 Other acute postprocedural pain
CPT/HCPCS: 27654; 27691; 28120; 01472; 64445; 73620; 76000; 76942; A4580; C1713; J0665; J0690; J1100; J2175; J2250; J2405; J2704; J2710; J2795; J3010; J7120

== ENCOUNTER 2024-03-03 08:28 | Outpatient (CLI) | payer OTHER, SELFPAY ==
--- OUTSIDE RECORDS SUMMARY | 2024-03-03 08:29 | XMS_ITS | Clinical Summary ---
Author Organization [facility] Address [place], [place] [address] Care Team Providers Care Canteen Manager Name Role Phone Fam Lewis DO Primary Care Provider [phone] Allergies No known active allergies Medications Medication Sig Dispensed Refills Start Date End Date Status polyethylene glycol-electroly te (GOLYTELY) 236-22.74-6.74 -5.86 gram suspensionIndica tions:Encounter for screening colonoscopy Drink 2 liters the [...] FOR FLARES 09/19/2022 Active durable medical equipment (DME)Indications :S/P orthopedic surgery, follow-up exam 01EF-XL Airselect, Standard, XLarge 1 Each 10/24/2023 Active durable medical equipment (DME)Indications :S/P orthopedic surgery, follow-up exam [id number] Achilles Wedge 1 Each 10/24/2023 Active trimethoprim-sul famethoxazole, 160-800 mg, (BACTRIM DS, SEPTRA DS) tab 11/04/2023 Active oxyCODONE (ROXICODONE) 5 mg immediate release tabletIndication s:Acute deep vein thrombosis (DVT) of right peroneal vein (HC) Take 1 Tablet (5 mg) by mouth every 6 hours if needed (breakthrough pain). 12 Tablet 11/07/2023 Active oxyCODONE (ROXICODONE) 5 mg immediate release tabletIndication s:Achilles tendon rupture, right, initial encounter Take 1-2 Tablets (5-10 mg) by mouth every 6 hours if needed for Pain. 20 Tablet 11/13/2023 Active durable medical equipment (DME)Indications :Calcific Achilles tendonitis 01EF-L Airselect, Standard, Large 1 Each 12/05/2023 Active hydrOXYzine pamoate (VISTARIL) 25 mg capsuleIndicatio ns:Post-op pain,S/P orthopedic surgery, follow-up exam Take 1-2 capsules every 4-6 hours as needed. 30 Capsule 12/19/2023 Active oxyCODONE (ROXICODONE) 5 mg immediate release tabletIndication s:Achilles tendon rupture, right, initial encounter Take 1-2 Tablets (5-10 mg) by mouth every 4 hours if needed for Pain. 20 Tablet 12/20/2023 Active durable medical equipment (DME)Indications :Achilles tendon rupture, right, initial encounter,Follow -up examination after orthopedic surgery ACHILLES WEDGE, REF: [phone] 01/02/2024 Active durable medical equipment (DME)Indications :Achilles tendon rupture, right, initial encounter,Follow -up examination after orthopedic surgery AIR SELECT, STANDARD, EXTRA LARGE, REF:01EF-XL 01/02/2024 Active cadexomer iodine (Iodosorb) 0.9 % gelIndications:P ostoperative wound dehiscence, initial encounter Apply topically to affected area(s) once daily if needed (wound drainage). 10 g 01/09/2024 Active traMADoL 25 mg tabIndications:P ostoperative wound dehiscence, initial encounter Take 50 mg by mouth every 4 hours. 20 Tablet 01/09/2024 Active HYDROcodone-acet aminophen (5-325 mg/tablet)Indica tions:Postoperat kiana wound dehiscence, initial encounter,Achill es tendon rupture, right, initial encounter,Follow -up examination after orthopedic surgery Take 1 Tablet by mouth every 4 hours if needed for Pain. Max acetaminophen dose: 4000 mg in 24 hrs. 20 Tablet 01/10/2024 Active trimethoprim-sul famethoxazole, 160-800 mg, (Bactrim DS) tabIndications:P ostoperative wound dehiscence, initial encounter Take 1 Tablet by mouth two times daily. 20 Tablet 01/16/2024 Active tadalafiL (CIALIS;ADCIRCA) 20 mg tabletIndication s:Erectile dysfunction of organic origin Take 1 Tablet (20 mg) by mouth once daily if needed for Erectile Dysfunction. Take 30 minutes before sexual activity. 10 Tablet 11 01/25/2024 Active apixaban (ELIQUIS) 5 mg tabletIndication s:Acute deep vein thrombosis (DVT) of distal vein of right lower extremity (HC) Take 1 Tablet (5 mg) by mouth two times daily. 60 Tablet 02/28/2024 Active clindamycin (CLEOCIN) 300 mg capsuleIndicatio ns:Dehiscence of operative wound, initial encounter Take 1 Capsule (300 mg) by mouth three times daily for 14 days. 42 Capsule 02/28/2024 4 Active cephalexin (KEFLEX) 500 mg capsuleIndicatio ns:Dehiscence of operative wound, initial encounter Take 1 Capsule (500 mg) by mouth three times daily for 14 days. 42 Capsule 02/28/2024 4 Active apixaban (Eliquis DVT-PE Treat 30D Start) tablet in a dose packIndications: Acute deep vein thrombosis (DVT) of right peroneal vein (HC) DVT/PE Treatment: Initial 10 mg PO BID for 7 days Followed by 5 mg PO BID 74 Tablet 11/07/2023 4 Discontinue d(*Medicati on adjustment) apixaban (ELIQUIS) 5 mg tabletIndication s:Acute deep vein thrombosis (DVT) of distal vein of right lower extremity (HC) Take 1 Tablet (5 mg) by mouth two times daily. 60 Tablet 01/16/2024 4 Discontinue d(*Medicati on adjustment) trimethoprim-sul famethoxazole, 160-800 mg, (Bactrim DS) tabIndications:C ellulitis of left foot Take 1 Tablet by mouth two times daily for 14 days. 28 Tablet 02/05/2024 4 levoFLOXacin (LEVAQUIN) 500 mg tabletIndication s:Postoperative wound dehiscence, initial encounter Take 1 Tablet (500 mg) by mouth once daily for 7 days. 7 Tablet 02/20/2024 4 clindamycin (CLEOCIN) 300 mg capsuleIndicatio ns:Postoperative wound dehiscence, initial encounter Take 1 Capsule (300 mg) by mouth three times daily for 7 days. 21 Capsule 02/20/2024 Hospital, Clinic, or Other Facility Administered Medication Ordered Dose Route Frequency Start Date End Date Status cefTRIAXone (ROCEPHIN) Intramuscular injection 1 gIndications:skin and skin structure infection 1 g IM ONE TIME 02/20/2024 02/20/2024 Ended cefTRIAXone (ROCEPHIN) Intramuscular injection 1 gIndications:skin and skin structure infection 1 g IM Q 24H 02/21/2024 02/22/2024 Ended Active Problems No known active problems Encounters Date Type Department Care Team Description 02/28/2024 3:30 PM CDT Office Visit [facility] [place] [address] [address] [phone] Vincent Dejesus DPM Post-op (Right achilles-wound dehiscence); Ulcer (Follow up-left foot) 02/28/2024 Travel 02/22/2024 8:15 AM CDT Nurse/Clinic Staff Only [facility] [address] [place] [address] Immunization/Injectio n (Rocephin 1 gram ) 02/22/2024 Travel 02/21/2024 1:00 PM CDT Nurse/Clinic Staff Only [place] [address] [place] [address] Immunization/Injectio n (Rocephin #2/) 02/21/2024 Telephone [facility] [address] [place] [address] Vincent Dejesus DPM Appointment 02/20/2024 4:00 PM CDT Office Visit [facility] [address] [place] [address] Vincent Dejesus DPM Post-op (Right achilles-wound dehiscence); Ulcer (Follow up-left foot) 02/20/2024 Travel 02/18/2024 1:45 PM CDT Procedure Only [facility] [address] [place] [address] Santa Petersen MD Vasectomy 02/18/2024 Travel 02/12/2024 11:30 AM CDT Office Visit [facility] [address] [place] [phone] Vincent Dejesus, DPM Follow Up (Right achilles tendon) 02/12/2024 Travel 02/12/2024 Telephone [facility] [address] [place] [phone] Vincent Dejesus, DPM Integra Graft 01/30/2024 1:15 PM CDT Office Visit [facility] [address] [place] [address] Vincent Dejesus, DPM Follow Up (Right 6 week post op, /Left ulcer ) 01/30/2024 Travel 01/28/2024 2:00 PM CDT Procedure Only [facility] [address] [place] [address] Santa Petersen MD Vasectomy 01/28/2024 Travel 01/25/2024 9:00 AM CDT Ancillary Procedure [facility] [address] [place] [address] 01/25/2024 8:05 AM CDT Office Visit [facility] [address] [place] [address] Fam Lewsi, Follow Up (ED problems ) 01/25/2024 Travel 01/23/2024 Telephone [facility] [address] [place] [address] Santa Petersen MD Results (Scrotal Ultrasound ) 01/22/2024 8:15 AM CDT Ancillary Procedure [facility] [address] [place] [address] 01/22/2024 Travel 01/16/2024 11:15 AM CDT Office Visit [address] [address] Vincent Dejesus, DPM Follow Up (Right achilles tendon post op /Left foot ulcer) 01/16/2024 Travel 01/10/2024 Orders Only [facility] [address] [facility] [place] [address] Vincent Dejesus, DPM <No scans attached> 01/09/2024 1:30 PM CDT Office Visit [facility] [address] [place] [address] Vincent Dejesus, DPM Follow Up (Right incision check/Left callus/blister) 01/09/[address] [place] [address] Vincent Dejesus, DPM Refill Request (Tramadol HCL 25mg tablets ) 01/09/2024 Travel 01/02/2024 9:00 AM CDT Office Visit [facility] [address] [place] [address] Vincent Dejesus, DPM Post-op (Right foot, DOS 12/17/23, 2 week post op) 01/02/2024 Travel 12/24/2023 3:00 PM CDT Office Visit [facility] [address] [place] [address] Santa Petersen MD Consult (vasectomy) 12/24/2023 Travel 12/19/2023 3:00 PM CDT Office Visit [facility] [address] [place] [address] Vincent Dejesus, DPM Post-op (Right foot, DOS 12/17/23, initial post op) 12/19/2023 Travel 12/18/2023 Telephone [facility] [address] [place] [address] Vincent Dejesus, DPM Surgical Followup 12/17/2023 10:30 AM CDT Office Visit [facility] at [address] [phone] Vincent Dejesus DPM Surgery Scheduled 12/17/2023 Orders Only [facility] Scanner 1 scan: (1-Ord) [facility], XR RT FOOT 2V, 12/17/2023 12/17/2023 Orders Only [facility] Scanner 1 scan: (1-Ord) [facility], REPAIR OF ACHILLES TENDON RUPTURE RIGHT, 12/17/2023 12/14/2023 1:40 PM CDT Preop Visit [facility] [address] [place] [address] Fam Lewis DO Preoperative Exam (Dr. Dejesus - 12/17/2023 - [facility] - RIGHT repair the Achilles rupture and remove the fracture fragments) 12/14/2023 Travel 12/10/[address] [address] Fam Lewis DO Results; Need Meds 12/06/2023 2:00 PM CDT Ancillary Procedure [facility] [address] [place] [address] 12/06/2023 1:45 PM CDT Ancillary Procedure [address] [address] 12/06/2023 1:00 PM CDT Ancillary Procedure [address] [address] 12/05/2023 3:30 PM CDT Office Visit [facility] [address] [place] [address] Vincent Dejesus DPM Consult (Left foot, ulcer/blister) 12/05/2023 Travel from Last 3 Months Immunizations Name Administration Dates Next Due COVID-19 vaccine (Send Word Now 30mcg/0.3mL) 12YO+ BIVALENT PF, MDV 07/11/2022 Influenza, [...] Sign Reading Time Taken Comments Blood Pressure 148/89 02/20/2024 4:03 PM CDT Pulse 92 02/28/2024 4:08 PM CDT Temperature 37 ??C (98.6 ??F) 02/28/2024 4:08 PM CDT Respiratory Rate 18 11/07/2023 3:57 PM CDT Oxygen Saturation 95% 02/28/2024 4:08 PM CDT Inhaled Oxygen Concentration - - Weight 145.6 kg (321 lb) 11/07/2023 3:57 PM CDT Height 203.2 cm (6' 8) 11/07/2023 3:57 PM CDT Body Mass Index 35.26 11/07/2023 3:57 PM CDT Plan of Treatment Health Maintenance Due Date Last Done Comments Hepatitis C screening for age 18-79 1993 COVID-19 vaccine series ( season) 2023 07/11/2022, 08/03/2021, 10/23/2020, Additional history [...] Procedure Name Priority Date/Time Associated Diagnosis Comments AEROBIC BACTERIAL CULTURE, STAIN Routine 02/20/2024 4:10 PM CDT Postoperative wound dehiscence, initial encounter PATH TISSUE EXAM Routine 02/18/2024 2:01 PM CDT Status post vasectomy XR ELBOW 3 VIEWS RIGHT Routine 01/25/2024 8:59 AM CDT Right elbow pain Cervical radiculopathy US SCROTUM WITH DUPLEX Routine 01/22/2024 8:55 AM CDT Pain, scrotum AEROBIC BACTERIAL CULTURE, STAIN Routine 01/09/2024 1:55 PM CDT Postoperative wound dehiscence, initial encounter SCAN-RADIOLOGY REPORT 12/17/2023 12:00 AM CDT SCAN-OPERATIVE/PROCE DURE REPORT 12/17/2023 12:00 AM CDT US VENOUS LOWER EXTREMITY RIGHT Routine 12/06/2023 1:37 PM CDT Acute deep vein thrombosis (DVT) of distal vein of right lower extremity (HC) XR FOOT 3 VIEWS RIGHT Routine 12/06/2023 1:16 PM CDT Calcific Achilles tendonitis Follow-up examination after orthopedic surgery XR CALCANEUS 2 VIEWS RIGHT Routine 12/06/2023 1:15 PM CDT Calcific Achilles tendonitis Follow-up examination after orthopedic surgery COLONOSCOPY SCREENING Routine 10/12/2022 8:08 AM 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 CULTURE RESULT(A) 02/24/2024 10:55 AM CDT [facility] CULTURE 4+ Streptococcus mitis group 02/24/2024 10:55 AM CDT [facility] CULTURE 1+ Mixed yvette present 02/24/2024 10:55 AM CDT [facility] GRAM STAIN 1+ Epithelial cells 02/24/2024 10:55 AM CDT [facility] GRAM STAIN No RBCs 02/24/2024 10:55 AM CDT [facility] GRAM STAIN No PMNs 02/24/2024 10:55 AM CDT [facility] GRAM STAIN 4+ Gram Positive Cocci 02/24/2024 10:55 AM CDT [facility] GRAM STAIN 4+ Gram Negative Bacilli 02/24/2024 10:55 AM CDT [facility] GRAM STAIN 1+ Gram Positive Bacilli 02/24/2024 10:55 AM CDT [facility] Other (Other) Non-Blood / Unknown 02/20/2024 4:10 PM CDT 02/20/2024 4:32 PM CDT [facility] 02/24/2024 10:55 AM CDT Mixed yvette, no Staphylococcus aureus, beta-Streptococcus, Streptococcus pneumoniae or Pseudomonas aeruginosa. Vincent R Steenblock DPM MICROBIOLOGY [facility] [address] [place] [address], * PATH TISSUE EXAM (02/18/2024 2:01 PM CDT) Case Report Pathology Report ?Case: [id number] ? Authorizing Provider: ??Santa Petersen MD ?Collected: ? 02/18/2024 1401 ? Ordering Location: ? [facility] ?? Received: ?02/18/2024 1430 ? Clinic ? Pathologist: ? Kannan Reynolds MD ? Specimens: ?? A) - Right Vas Deferens ? B) - Left Vas Deferens ? 02/20/2024 10:30 AM T [facility] Final Diagnosis A) VAS DEFERENS, RIGHT, VASECTOMY: Complete luminal cross-section of vas deferens identified B) VAS DEFERENS, LEFT, VASECTOMY: Complete luminal cross-section of vas deferens identified 02/20/2024 10:30 AM [facility] Clinical Information Sterilization 02/20/2024 10:30 AM [facility] Gross Description A) Received in formalin, labeled with the patient's name and right vas deferens, is a 2.0 cm in length by 0.2 cm in diameter cylindrical segment of vas deferens. ??The specimen is entirely submitted in one cassette for sectioning by histology. B) Received in formalin, labeled with the patient's name and left vas deferens, is a 1.7 cm in length by 0.2 cm in diameter cylindrical segment of vas deferens. ??The specimen is entirely submitted in one cassette for sectioning by histology. EVM 02/19/2024 ?? 02/20/2024 10:30 AM [facility] Microscopic Description The final diagnosis is based on microscopic examination of appropriate sections of all specimens. 02/20/2024 10:30 AM [facility] Additional Information Interpreted at [facility], Central Laboratory - [address] [address] 02/20/2024 10:30 AM [facility] Other (Right Vas Deferens) Non-Blood / Unknown 02/18/2024 2:01 PM CDT 02/18/2024 2:30 PM CDT Specimen (specimen) (Left Vas Deferens) Non-Blood / Unknown 02/18/2024 2:12 PM CDT 02/18/2024 2:30 PM CDT Santa Petersen MD PATHOLOGY/CYTOLOGY [facility] [address] [place] [address], [place] * XR ELBOW 3 VIEWS RIGHT (01/25/2024 8:59 AM CDT) Anatomical Region Laterality Modality ELBOW R Computed Radiogr aphy 01/28/2024 8:50 AM CDT Impressions 01/28/2024 8:50 AM CDT No acute bone abnormality. Dictated by Telly Osorio MD @ 01/28/2024 8:50:20 AM (Electronically Signed) Narrative 01/28/2024 8:50 AM CDT For Patients: ??As a result of the Cures Act, medical imaging exams and procedure reports are released immediately into your electronic medical record. ??You may view this report before your referring provider. ??If you have questions, please contact your health care provider. INDICATION: Right elbow pain. FINDINGS: Three views of the right elbow were obtained. There is no acute fracture seen or dislocation. There is no posterior fat pad sign seen. There is a spur off the olecranon. Procedure Note Telly Osorio MD - 01/28/2024 For Patients: As a result of the Cures Act, medical imagingexams and procedure reports are released immediately into your electronicmedical record. You may view this report before your referring provider.If you have questions, please contact your health care provider. INDICATION: Right elbow pain. FINDINGS: Three views of the right elbow were obtained. There is no acute fractureseen or dislocation. There is no posterior fat pad sign seen. There is aspur off the olecranon. IMPRESSION: No acute bone abnormality. Dictated by Telly Osorio MD @ 01/28/2024 8:50:20 AM (Electronically Signed) Adei Shaqra DO GENERAL IMAGING * US SCROTUM W DUPLEX (01/22/2024 8:55 AM CDT) Anatomical Region Laterality Modality SCROTUM, TESTES Ultrasound 01/23/2024 6:57 AM CDT Impressions 01/23/2024 6:57 AM CDT Normal ultrasound of the testicles without testicular mass or torsion. No hydrocele or varicocele. Incidental left epididymal head cyst and normal-appearing right inguinal lymph node. No suspicious findings. Dictated by Abrahan Aquino MD @ 01/23/2024 6:57:14 AM (Electronically Signed) Narrative 01/23/2024 6:57 AM CDT For Patients: ??As a result of the Cures Act, medical imaging exams and procedure reports are released immediately into your electronic medical record. ??You may view this report before your referring provider. ??If you have questions, please contact your health care provider. INDICATION: Right scrotal pain COMPARISON: none TECHNIQUE: Bliss scale imaging was performed of the scrotum. In addition color Doppler and spectral Doppler analysis was performed of the testes. FINDINGS: The testes demonstrate normal arterial and venous blood flow on color Doppler and spectral Doppler analysis. The testes have uniform echogenicity with no evidence of a suspicious mass or area of inflammation. The right testis measures 5.1 x 4.4 x 2.3 cm in size and the left testis measures 5.7 x 3.0 x 2.5 cm. Incidental left epididymal head cyst measures 7 millimeters. There is no evidence of a hydrocele or varicocele. Right inguinal lymph node measures 2.2 x 2.4 x 0.9 cm with normal morphologic features. Procedure Note Abrahan Aquino MD - 01/23/2024 For Patients: As a result of the Cures Act, medical imagingexams and procedure reports are released immediately into your electronicmedical record. You may view this report before your referring provider.If you have questions, please contact your health care provider. INDICATION: Right scrotal pain COMPARISON: none TECHNIQUE: Bliss scale imaging was performed of the scrotum. In addition color Dopplerand spectral Doppler analysis was performed of the testes. FINDINGS: The testes demonstrate normal arterial and venous blood flow on colorDoppler and spectral Doppler analysis. The testes have uniformechogenicity with no evidence of a suspicious mass or area ofinflammation. The right testis measures 5.1 x 4.4 x 2.3 cm in size and theleft testis measures 5.7 x 3.0 x 2.5 cm. Incidental left epididymal headcyst measures 7 millimeters. There is no evidence of a hydrocele orvaricocele. Right inguinal lymph node measures 2.2 x 2.4 x 0.9 cm withnormal morphologic features. IMPRESSION: Normal ultrasound of the testicles without testicular mass or torsion. Nohydrocele or varicocele. Incidental left epididymal head cyst andnormal-appearing right inguinal lymph node. No suspicious findings. Dictated by Abrahan Aquino MD @ 01/23/2024 6:57:14 AM (Electronically Signed) Santa Petersen MD US * SCAN-RADIOLOGY REPORT (12/17/2023 12:00 AM CDT) Anatomical Region Laterality Modality Other Scanner OTHER * SCAN-OPERATIVE/PROCEDURE REPORT (12/17/2023 12:00 AM CDT) Scanner OTHER * US VENOUS LOWER EXTREMITY RIGHT (12/06/2023 1:37 PM CDT) Anatomical Region Laterality Modality LEGS, LEG R, [...] performed of the right lower extremity using bliss-scale imaging, color Doppler and spectral Doppler analysis. [...] was performed of the right lowerextremity using bliss-scale imaging, color Doppler and spectral Doppleranalysis. FINDINGS: [...] MD @ 12/06/2023 3:13:02 PM (Electronically Signed) Adei Doroteoqra DO US * XR FOOT 3 VIEWS RIGHT (12/06/2023 1:16 PM CDT) Anatomical Region Laterality Modality FEET, FOOT R [...] Comparison: 11/06/2023 and 11/07/2023 Procedure Note Abrahan Aquino MD - [...] 12/06/2023 3:20:03 PM (Electronically Signed) Vincent Dejesus DPTrena GENERAL IMAGING * XR CALCANEUS 2 VIEWS [...] Signed) Vincent Dejesus DPM GENERAL IMAGING * COLONOSCOPY (10/12/2022 8:09 AM CAKE PRESS OPERATOR) 10/12/2022 8:09 AM CAKE PRESS OPERATOR Narrative Transcriptions Nolan Alaniz MD - 10/12/2022 [...] adequate candidate for conscious sedation. The endoscope [id number] was passed through the anus andadvanced to [...] 8:09 AM Procedure Code(s): --- Professional --- 84356, Colonoscopy, flexible; diagnostic, including collection of specimen(s) bybrushing or washing, when performed (separateprocedure) Diagnosis Code(s): --- Professional --- Z12.11, Encounter for screening formalignant neoplasm of colon CPT copyright 2020 [employer]. All rights reserved. The codes documented in this report are preliminary and upon public health aide reviewmay be revised to meet current compliance requirements. Scope In: 8:53:06 AM Scope Withdrawal Time 0 hours 13 minutes 33 seconds Scope Out: 9:11:04 AM Nolan Alaniz MD PROCEDURE ORD * (ABNORMAL) LIPID PANEL W REFLEX MEASURED LDL [[id number]] (07/03/2022) CHOLESTEROL,TOTAL 197(EXTER NAL) mg/dL OTHER-NOT LISTED-ADD NARRATIVE DETAILS HDL CHOLESTEROL 39(MAIL SORTER AL) mg/dL OTHER-NOT LISTED-ADD NARRATIVE DETAILS LDL CHOLESTEROL 131(EXTER NAL) mg/dL OTHER-NOT LISTED-ADD NARRATIVE DETAILS CHOL/HDL RATIO 5.09(EXTE RNAL) OTHER-NOT LISTED-ADD NARRATIVE DETAILS TRIGLYCERIDES 135(EXTER NAL) mg/dL OTHER-NOT LISTED-ADD NARRATIVE DETAILS Blood BLOOD SPECIMEN / Unknown 07/03/2022 Narrative OTHER-NOT LISTED-ADD NARRATIVE DETAILS - 07/05/2022 [facility] Notice: This testing was ordered by an outside provider and performed by [facility]. The original result report can be found in the patient record as a CareEverywhere scan result from [facility] CHEMISTRY OTHER-NOT LISTED-ADD NARRATIVE DETAILS from Last 3 Months or Most Recently Relevant to Health Maintenance Care Teams Canteen Manager Relationship Specialty Start Date End Date F[place] [address] PCP - General Family Practice 10/16/22
[2024-03-03 10:52] LABS: Basophils Absolute Auto 0.04 K/uL (0.00-0.30); Basophils Percent Auto 0.6 % (0.0-3.0); Eosinophils Absolute Auto 0.27 K/uL (0.00-0.50); Eosinophils Percent Auto 4.2 % (0.0-7.0); Hematocrit 45.7 % (37.0-53.0); Hemoglobin* 15.2 gm/dL (13.5-17.5); Immature Granulocytes Abs Auto 0.06 K/uL (0.00-0.30); Immature Granulocytes Pct Auto 0.9 %; Lymphocytes Absolute Auto 2.09 K/uL (0.90-2.90); Lymphocytes Percent Auto 32.5 % (20-44); Mean Corpuscular HGB Conc 33 gm/dL (32-36); Mean Corpuscular Hemoglobin 29 pg (26-34); Mean Corpuscular Volume 87 fL (80-100); Monocytes Percent Auto 7.6 % (0.0-11.0); Neutrophils Absolute Auto 3.48 K/uL (1.7-7.0); Neutrophils Percent Auto 54.2 % (42.0-72.0); Platelet Count* 205 K/uL (140-440); RDW Coefficient of Variation % 12.7 % (11.5-15.5); Red Blood Count 5.24 m/uL (4.30-5.90); White Blood Count* 6.43 K/uL (4.50-11.00)
[2024-03-03 11:08] LABS: Slide Review Reflex No
[2024-03-03 11:11] LABS: Albumin* 4.7 g/dL (3.3-5.0); Chloride* 107 mmol/L (96-114); Sodium* 141 mmol/L (135-149)
[2024-03-03 11:12] LABS: Potassium* 4.2 mmol/L (3.6-5.1)
[2024-03-03 11:14] LABS: Anion Gap 8 mEq/L (7-15); Carbon Dioxide* 26 mmol/L (20-32); Creatinine* 0.8 mg/dL (0.5-1.5); Estimated Glomerular Filt Rate 109 ml/min
[2024-03-03 11:15] LABS: Alanine Aminotransferase* 49 U/L (4-50); Alkaline Phosphatase* 70 U/L (40-150); Aspartate Amino Transferase* 34 U/L (12-35); Bilirubin Total* 0.5 mg/dL (0.1-1.5); Blood Urea Nitrogen* 17 mg/dL (5-24); Calcium* 9.6 mg/dL (8.4-10.6); Glucose* 96 mg/dL (60-115); Total Protein* 7.5 g/dL (6.0-8.3)
[2024-03-03 11:36] LABS: Hemoglobin A1C* 5.6 % (0-5.6)
[2024-03-03 12:25] LABS: C Reactive Protein* < 0.5 mg/dL (0.5-1.0)
[2024-03-03 12:31] LABS: Erythrocyte SedimentationRate* 6 mm/hr (2-15)
[2024-03-05 07:47] LABS: Anti-Nuclear Ab(ANA)IgG ELISA None Detected (None Detected)
[2024-03-05 16:29] LABS: Zinc, Serum/Plasma 80.9 ug/dL (60.0-120.0)
== END 2024-03-03 08:29 | disposition home or self-care (01) ==
LOC: WOUND 08:28
PROVIDERS: PCP Student in an Organized Health Care Education/Training Program; Visit Provider Nurse Practitioner Family
DX: T81.31XA Disruption of external operation (surgical) wound, not elsewhere classified, initial encounter (principal); G90.09 Other idiopathic peripheral autonomic neuropathy; L97.522 Non-pressure chronic ulcer of other part of left foot with fat layer exposed; R73.01 Impaired fasting glucose
CPT/HCPCS: 11042; 36415; 80053; 82728; 83036; 84630; 85025; 85651; 86039; 86140; 87070; 87186; 97597; G0463

== ENCOUNTER 2024-03-10 09:06 | Outpatient (CLI) | payer OTHER, SELFPAY ==
--- OUTSIDE RECORDS SUMMARY | 2024-03-10 09:08 | XMS_ITS | Clinical Summary ---
Author Organization [employer] [facility] Address [place], [place] [address] Care Team Providers Care Supersonic Engineer Name Role Phone Fam Lewis DO Primary Care Provider [phone] Allergies No known active allergies Medications Medication [...] equipment (DME)Indications :S/P orthopedic surgery, follow-up exam [phone] Achilles Wedge 1 Each 10/24/2023 Active trimethoprim-sul [...] examination after orthopedic surgery ACHILLES WEDGE, REF: [phone] 01/02/2024 Active durable medical equipment (DME)Indications :Achilles [...] Description 02/28/2024 3:30 PM CDT Office Visit [facility] [place] [address] [phone] Vincent Dejesus DPM Post-op (Right achilles-wound dehiscence); Ulcer (Follow up-left foot) 02/28/2024 Travel 02/22/2024 8:15 AM CDT Nurse/Clinic Staff Only [facility] [address] [place] [address] Immunization/Injectio n (Rocephin 1 gram ) 02/22/2024 Travel 02/21/2024 1:00 PM CDT Nurse/Clinic Staff Only [place] [address] [place] [address] Immunization/Injectio n (Rocephin #2/) 02/21/2024 Telephone [facility] [address] [place] [address] Vincent Dejesus DPM Appointment 02/20/2024 4:00 PM CDT Office Visit [facility] [address] [place] [address] Vincent Dejesus DPM Post-op (Right achilles-wound dehiscence); Ulcer (Follow up-left foot) 02/20/2024 Travel 02/18/2024 1:45 PM CDT Procedure Only [facility] [address] [place] [address] Santa Petersen MD Vasectomy 02/18/2024 Travel 02/12/2024 11:30 AM CDT Office Visit [facility] [address] [place] [address] Vincent Dejesus, DPM Follow Up (Right achilles tendon) 02/12/2024 Travel 02/12/2024 Telephone [facility] [address] [place] [address] Vincent Dejesus, DPM [employer] 01/30/2024 1:15 PM CDT Office Visit [facility] [address] [place] [address] Vincent Dejesus, DPM Follow Up (Right 6 week post op, /Left ulcer ) 01/30/2024 Travel 01/28/2024 2:00 PM CDT Procedure Only [facility] [address] [place] [address] Santa Petersen MD Vasectomy 01/28/2024 Travel 01/25/2024 9:00 AM CDT Ancillary Procedure [facility] [address] [place] [address] 01/25/2024 8:05 AM CDT Office Visit [facility] [address] [place] [address] Fam Lewis, Follow Up (ED problems ) 01/25/2024 Travel 01/23/2024 Telephone [facility] [address] [place] [address] Santa Petersen MD Results (Scrotal Ultrasound ) 01/22/2024 8:15 AM CDT Ancillary Procedure [facility] [address] [place] [address] 01/22/2024 Travel 01/16/2024 11:15 AM CDT Office Visit [address] [address] Vincent Dejesus, DPM Follow Up (Right achilles tendon post op /Left foot ulcer) 01/16/2024 Travel 01/10/2024 Orders Only [facility] [address] [facility] [address] Vincent Dejesus, DPM <No scans attached> 01/09/2024 1:30 PM CDT Office Visit [facility] [address] [place] [address] Vincent Dejesus, DPM Follow Up (Right incision check/Left callus/blister) 01/09/[address] [place] [address] Vincent Dejesus, DPM Refill Request (Tramadol HCL 25mg tablets ) 01/09/2024 Travel 01/02/2024 9:00 AM CDT Office Visit [facility] [address] [place] [address] Vincent Dejesus, DPM Post-op (Right foot, DOS 12/17/23, 2 week post op) 01/02/2024 Travel 12/24/2023 3:00 PM CDT Office Visit [facility] [address] [place] [address] Santa Petersen MD Consult (vasectomy) 12/24/2023 Travel 12/19/2023 3:00 PM CDT Office Visit [facility] [address] [place] [address] Vincent Dejesus, DPM Post-op (Right foot, DOS 12/17/23, initial post op) 12/19/2023 Travel 12/18/2023 Telephone [facility] [address] [place] [address] Vincent Dejesus, DPM Surgical Followup 12/17/2023 10:30 AM CDT Office Visit [facility] at [address] [phone] Vincent Dejesus DPM Surgery Scheduled 12/17/2023 Orders Only [facility] Scanner 1 scan: (1-Ord) [facility], XR RT FOOT 2V, 12/17/2023 12/17/2023 Orders Only [facility] Scanner 1 scan: (1-Ord) [facility], REPAIR OF ACHILLES TENDON RUPTURE RIGHT, 12/17/2023 12/14/2023 1:40 PM CDT Preop Visit [facility] [address] [place] [address] Fam Lewis, Preoperative Exam (Dr. Dejesus - 12/17/2023 - [facility] - RIGHT repair the Achilles rupture and remove the fracture fragments) 12/14/2023 Travel 12/10/2023 Telephone [facility] [address] [place] [address] Fam Lewis, Results; Need Meds from Last 3 Months Immunizations Name Administration Dates Next Due COVID-19 vaccine (TellpeBio NTech 30mcg/0.3mL) 12YO+ BIVALENT PF, MDV 07/11/2022 [...] Care Team (Late st Contact Info) Description 03/11/2024 4:30 PM CDT Office Visit [facility] [address] [place] [address] Vincent Dejesus DPM [address] [place] [address] Health Maintenance Due Date Last Done Comments [...] SCAN-OPERATIVE/PROCE DURE REPORT 12/17/2023 12:00 AM CDT COLONOSCOPY SCREENING Routine 10/12/2022 8:08 AM TECHNICAL SUPPORT CONSULTANT Screening for colon cancer LIPID PANEL W REFLEX MEASURED LDL Routine 07/03/2022 Screening for lipid disorders from Last 3 Months or Most Recently Relevant to Health Maintenance Results * (ABNORMAL) AEROBIC BACTERIAL CULTURE, STAIN (02/20/2024 4:10 PM CDT) Only the most recent of2 resultswithin the time period is included. CULTURE RESULT(A) 02/24/2024 10:55 AM CDT [facility] CULTURE 4+ Streptococcus mitis group 02/24/2024 10:55 AM CDT [facility] CULTURE 1+ Mixed yvette present 02/24/2024 10:55 AM CDT [facility] GRAM STAIN 1+ Epithelial cells 02/24/2024 10:55 AM CDT [facility] GRAM STAIN No RBCs 02/24/2024 10:55 AM CDT [facility] GRAM STAIN No PMNs 02/24/2024 10:55 AM CDT [facility] GRAM STAIN 4+ Gram Positive Cocci 02/24/2024 10:55 AM CDT [facility] GRAM STAIN 4+ Gram Negative Bacilli 02/24/2024 10:55 AM CDT [facility] GRAM STAIN 1+ Gram Positive Bacilli 02/24/2024 10:55 AM CDT [facility] Other (Other) Non-Blood / Unknown 02/20/2024 4:10 PM CDT 02/20/2024 4:32 PM CDT Narrative [facility] - 02/24/2024 10:55 AM CDT Mixed yvette, no Staphylococcus aureus, beta-Streptococcus, Streptococcus pneumoniae or Pseudomonas aeruginosa. Vincent Dejesus DPM MICROBIOLOGY [facility] [address] [place] [address], * PATH TISSUE EXAM (02/18/2024 2:01 PM CDT) Case Report Pathology Report ?Case: [id number] ? Authorizing Provider: ??Santa Petersen MD ?Collected: ? 02/18/2024 1401 ? Ordering Location: ? [facility] ?? Received: ?02/18/2024 1430 ? Clinic ? Pathologist: ? Kannan Reynolds MD ? Specimens: ?? A) - Right Vas Deferens ? B) - Left Vas Deferens ? 02/20/2024 10:30 AM [facility] Final Diagnosis A) VAS DEFERENS, RIGHT, VASECTOMY: Complete luminal cross-section of vas deferens identified B) VAS DEFERENS, LEFT, VASECTOMY: Complete luminal cross-section of vas deferens identified 02/20/2024 10:30 AM [facility] Clinical Information Sterilization 02/20/2024 10:30 AM [facility] [employer] [facility]-C ENTRAL LABORATORY Gross Description A) Received in formalin, [...] histology. EVM 02/19/2024 ?? 02/20/2024 10:30 AM CDT [facility]- ENTRAL LABORATORY Microscopic Description The final diagnosis is based on microscopic examination of appropriate sections of all specimens. 02/20/2024 10:30 AM CDT [facility]- ENTRAL LABORATORY Additional Information Interpreted at [facility], Central Laboratory - [address] [place] [address] [facility] [address] [address] 02/20/2024 10:30 AM CDT [facility]- ENTRAL LABORATORY Other (Right Vas Deferens) Non-Blood / Unknown 02/18/2024 2:01 PM CDT 02/18/2024 2:30 PM CDT Specimen (specimen) (Left Vas Deferens) Non-Blood / Unknown 02/18/2024 2:12 PM CDT 02/18/2024 2:30 PM CDT Santa Petersen MD PATHOLOGY/CYTOLOGY [facility] [address] [place] [address], * XR ELBOW 3 VIEWS RIGHT (01/25/2024 [...] @ 01/28/2024 8:50:20 AM (Electronically Signed) Adei Joshua DO GENERAL IMAGING * US SCROTUM W [...] (12/17/2023 12:00 AM CDT) Scanner OTHER * COLONOSCOPY (10/12/2022 8:09 AM TECHNICAL SUPPORT CONSULTANT) 10/12/2022 8:09 AM TECHNICAL SUPPORT CONSULTANT Narrative Transcriptions Nolan Alaniz MD - 10/12/2022 [...] adequate candidate for conscious sedation. The endoscope [id number] was passed through the anus andadvanced to [...] 8:09 AM Procedure Code(s): --- Professional --- 96807, Colonoscopy, flexible; diagnostic, including collection of specimen(s) bybrushing or washing, when performed (separateprocedure) Diagnosis Code(s): --- Professional --- Z12.11, Encounter for screening formalignant neoplasm of colon CPT copyright 2020 [employer]. All rights reserved. The codes documented in this report are preliminary and upon crusher foreman reviewmay be revised to meet current compliance requirements. Scope In: 8:53:06 AM Scope Withdrawal Time 0 hours 13 minutes 33 seconds Scope Out: 9:11:04 AM Nolan Alaniz MD PROCEDURE ORD * (ABNORMAL) LIPID PANEL W REFLEX MEASURED LDL [TDS8325] (07/03/2022) CHOLESTEROL,TOTAL 197(EXTER NAL) mg/dL OTHER-NOT LISTED-ADD NARRATIVE DETAILS HDL CHOLESTEROL 39(LINE PRODUCTION COOK AL) mg/dL OTHER-NOT LISTED-ADD NARRATIVE DETAILS LDL CHOLESTEROL 131(EXTER NAL) mg/dL OTHER-NOT LISTED-ADD NARRATIVE DETAILS CHOL/HDL RATIO 5.09(EXTE RNAL) OTHER-NOT LISTED-ADD NARRATIVE DETAILS TRIGLYCERIDES 135(EXTER NAL) mg/dL OTHER-NOT LISTED-ADD NARRATIVE DETAILS Blood BLOOD SPECIMEN / Unknown 07/03/2022 Narrative OTHER-NOT LISTED-ADD NARRATIVE DETAILS - 07/05/2022 [facility] Notice: This testing was ordered by an outside provider and performed by [facility]. The original result report can be found in the patient record as a CareEverywhere scan result from [facility]. [facility] CHEMISTRY OTHER-NOT LISTED-ADD NARRATIVE DETAILS from Last 3 Months or Most Recently Relevant to Health Maintenance Care Teams Supersonic Engineer Relationship Specialty Start Date End Date Fam Lewis DO [address] [place] [address] PCP - General Family Practice 10/16/22
== END 2024-03-10 09:07 | disposition home or self-care (01) ==
LOC: WOUND 09:06
PROVIDERS: PCP Student in an Organized Health Care Education/Training Program; Visit Provider Family Medicine
DX: T81.31XA Disruption of external operation (surgical) wound, not elsewhere classified, initial encounter (principal)
CPT/HCPCS: 11042; 73720; 73723; A9575

== ENCOUNTER 2024-03-20 22:00 | Outpatient (RCR) | payer OTHER, SELFPAY ==
[2024-03-12 22:00] VITALS: BP 157/91; PULSE 76
--- NOTE | 2024-03-12 22:34 | PC.NURSE ---
Abx infused without difficulty. IV flushed and covered. VS taken and pt discharged to home.
[2024-03-13 08:07] VITALS: BP 128/83; PULSE 74; RESP 16; TEMP 36; O2SAT 74
[2024-03-13] MEDS: 0.9 % SODIUM CHLORIDE 250 ml IV ×2 (08:39→20:34)
[2024-03-13] MEDS: SODIUM CHLORIDE 0.9 % (FLUSH) 10 ML SYRINGE IVF ×3 (08:40→20:08)
[2024-03-13 20:10] VITALS: BP 149/85; PULSE 81; RESP 16; TEMP 36.7; O2SAT 97
[2024-03-13 21:58] VITALS: BP 158/93; PULSE 77; RESP 18; TEMP 36.7
--- NOTE | 2024-03-13 22:38 | PC.NURSE ---
Charli received Vanco infusion, tolerated well. States he is feeling great. VSS. IV flushed well and had good blood return. Noted to have very light pink area proximal to IV but states he feels that is from early today when his was changing his foot dressing and he was resting on his arm. Lightly outlined area for monitoring. Instructed to have [facility] nurses assess again in AM. Also discussed asking his doctor about probiotics and/or eating a yogurt for gut health due to high risk of CDIFF. Also instructed to discuss having stools tested with MD if diarrhea starts.
[2024-03-14 08:00] VITALS: BP 139/96; PULSE 71; RESP 18; TEMP 36.6; O2SAT 94
[2024-03-14] MEDS: SODIUM CHLORIDE 0.9 % (FLUSH) 10 ML SYRINGE IVF ×2 (08:20→20:29)
--- NOTE | 2024-03-14 09:58 | PC.NURSE ---
IV in upper left forearm noted to have redness and outlined from yesterday. redness has passed outline and pt reports tenderness. red streaks noted. IV stopped and restarted to left FA and no s/s noted. pt tolerating infusion well.
[2024-03-14 19:00] VITALS: BP 135/83; PULSE 80; RESP 18; TEMP 36.9; O2SAT 93
[2024-03-14] MEDS: 0.9 % SODIUM CHLORIDE 250 ml IV (20:29)
[2024-03-15] MEDS: 0.9 % SODIUM CHLORIDE 250 ml IV ×2 (08:14→20:21)
[2024-03-15] MEDS: SODIUM CHLORIDE 0.9 % (FLUSH) 10 ML SYRINGE IVF ×2 (08:14→20:21)
[2024-03-15 08:25] VITALS: BP 147/97; PULSE 69; RESP 18; TEMP 36.8; O2SAT 95
[2024-03-15 10:18] VITALS: BP 135/91; PULSE 60; RESP 18; TEMP 36.8; O2SAT 94
--- NOTE | 2024-03-15 10:24 | PC.NURSE ---
Infusion: Patient pleasant and cooperative, A&O. VSS, no infusion reaction noted.
[2024-03-15 20:15] VITALS: BP 140/85; PULSE 80; RESP 18; TEMP 36.5; O2SAT 95
[2024-03-16 08:18] VITALS: BP 154/93; PULSE 60; RESP 18; TEMP 36.6; O2SAT 95
[2024-03-16] MEDS: SODIUM CHLORIDE 0.9 % (FLUSH) 10 ML SYRINGE IVF (20:08)
[2024-03-16] MEDS: 0.9 % SODIUM CHLORIDE 250 ml IV (20:10)
[2024-03-16 20:18] VITALS: BP 146/82; PULSE 78; RESP 18; TEMP 37; O2SAT 93
[2024-03-16 22:57] VITALS: BP 145/96; PULSE 80; RESP 18; TEMP 36.6; O2SAT 94
[2024-03-17 08:17] VITALS: BP 137/90; PULSE 80; RESP 18; TEMP 36.5; O2SAT 93
[2024-03-17] MEDS: 0.9 % SODIUM CHLORIDE 250 ml IV ×2 (08:21→20:39)
[2024-03-17] MEDS: SODIUM CHLORIDE 0.9 % (FLUSH) 10 ML SYRINGE IVF (08:21)
[2024-03-17 20:42] VITALS: BP 132/80; PULSE 87; RESP 18; TEMP 36.8; O2SAT 93
[2024-03-17 23:30] VITALS: BP 137/76; PULSE 89; RESP 20; TEMP 36.7; O2SAT 94
[2024-03-18 06:00] VITALS: BP 127/79; PULSE 72; RESP 20; TEMP 36.6; O2SAT 96
[2024-03-18 06:45] LABS: Chloride* 109 mmol/L (96-114); Potassium* 3.9 mmol/L (3.6-5.1); Sodium* 140 mmol/L (135-149)
[2024-03-18 06:48] LABS: Anion Gap 9 mEq/L (7-15); Blood Urea Nitrogen* 14 mg/dL (5-24); Carbon Dioxide* 22 mmol/L (20-32); Creatinine* 0.8 mg/dL (0.5-1.5); Estimated Glomerular Filt Rate 109 ml/min; Glucose* 105 mg/dL (60-115)
[2024-03-18 08:17] VITALS: BP 134/90; PULSE 67; RESP 12; TEMP 36.8; O2SAT 95
--- NOTE | 2024-03-18 09:54 | PC.NURSE ---
Patient tolerated infusion well. IV SL and intact. Patient left the floor at 0826.
[2024-03-18] MEDS: SODIUM CHLORIDE 0.9 % (FLUSH) 10 ML SYRINGE IVF (20:19)
[2024-03-18 20:31] VITALS: BP 133/89; PULSE 73; RESP 16; O2SAT 95
--- OUTSIDE RECORDS SUMMARY | 2024-04-28 16:19 | XMS_ITS | Clinical Summary ---
Author Organization [facility] Address [place], [place] [address] Care Team Providers Care Drywall Application Supervisor Name Role Phone Fam Lewis DO Primary Care Provider [phone] Allergies No known active allergies Medications Medication Sig Dispensed Refills Start Date End Date Status durable medical equipment (DME)Indications:S/ P orthopedic surgery, follow-up exam 01EF-XL Airselect, Standard, XLarge 1 Each 10/24/2023 Active durable medical equipment (DME)Indications:S/ P orthopedic surgery, follow-up exam [id number] Achilles Wedge 1 Each 10/24/2023 Active durable medical equipment (DME)Indications:Ca lcific Achilles tendonitis 01EF-L Airselect, Standard, Large 1 Each 12/05/2023 Active durable medical equipment (DME)Indications:Ac hilles tendon rupture, right, initial encounter,Follow-up examination after orthopedic surgery ACHILLES WEDGE, REF: [id number] 01/02/2024 Active cadexomer iodine (Iodosorb) 0.9 % [...] Description 04/23/2024 3:30 PM CDT Office Visit [facility] [address] [place] [address] Vincent Dejesus DPTrena Post-op (Right achilles, DOS 03/22/24, 4 week post op) 04/23/2024 Travel 04/23/2024 Telephone [facility] [address] [place] [address] Santa Petersen MD Testing (Needs repeat US scrotum ) 04/16/2024 3:15 PM CDT Office Visit [facility] [address] [place] [address] Vinecnt Dejesus, DPM Post-op (Right achilles, DOS 03/22/24, 3 weeks post op) 04/16/2024 Travel 04/10/2024 Telephone [facility] [address] [place] [address] Vincent Dejesus DPM Appointment 04/10/2024 Travel 04/02/2024 3:15 PM CDT Office Visit [facility] [address] [place] [address] Vincent Dejesus, DPM Post-op (Right achilles post op , DOS 03/22/24/Left plantar great toe callus) 04/02/2024 Travel 03/28/2024 2:00 PM CDT Office Visit [facility] [address] [place] [address] Won Paniagua DPM Post-op (Right ankle- achilles) 03/27/2024 2:30 PM CDT Office Visit [facility] [address] [place] [address] Aram Rangel MD Hospital F/U (03/19/24, [place], rt ankle infection) 03/27/2024 Travel 03/24/2024 Patient Outreach [facility] [address] [place] [address] Catrina Kraft, RN Primary RN Care Management; Hospital F/U (LACE 45) 03/22/2024 8:07 AM CDT Anesthesia Event [address] [address] Lurdes Patino MD 03/22/2024 7:20 AM CDT - 03/22/2024 8:36 AM CDT Surgery [address] [address] José Miguel Fernández, DPTrena REPEAT IRRIGATION AND DEBRIDEMENT OF RIGHT HEEL WITH ANTIBIOTIC BEAD REMOVAL AND WOUND CLOSURE 03/19/2024 7:25 AM CDT Anesthesia Event [address] [address] Kaleigh Vang CRNA Hottinger, Daniel George, MD 03/19/2024 7:20 AM CDT - 03/19/2024 8:54 AM CDT Surgery [address] [address] Won Paniagua DPM Irrigation and Debridement of the achilles tendon right ankle 03/19/2024 5:44 AM CDT - 03/23/2024 12:00 PM CDT Hospital Encounter [address] [address] Won Paniagua DPM Kaley Moss NP Chung, Uyen Wegj-Ogvd-Xbdt, DO Infection (Primary Dx); Achilles tendon infection; Mixed hyperlipidemia; S/P foot surgery, right Discharge Disposition: Home Self Care 03/19/2024 Travel 03/18/2024 10:00 AM CDT Preop Visit [facility] [address] [place] [address] Nieves Paz PA Preoperative Exam (03/19/2024) 03/18/2024 Travel 03/17/2024 Telephone [facility] [address] [address] [place] [address] Nieves Paz PA Medication Management 03/14/2024 1:00 PM CDT Office Visit [facility] [address] [facility] [address] [place] [address] Won Paniagua, MARY Foot Problem (right achilles and right foot) 03/14/2024 Travel 03/11/2024 4:30 PM CDT Office Visit [facility] [address] [place] [address] Vincent Dejesus DPM Follow Up (Right achilles, wound dehiscence ) 03/11/2024 Travel 03/10/2024 Orders Only [facility] Scanner 1 scan: (1-Ord) [facility], MR ANKLE RT WO/W, 03/10/2024 03/10/2024 Orders Only [facility] Scanner 1 scan: (1-Ord) [place], RIGHT FOOT, 03/10/2024 02/28/2024 3:30 PM CDT Office Visit [facility] [address] [facility] [place] [address] Vincent Dejesus DPM Post-op (Right achilles-wound dehiscence); Ulcer (Follow up-left foot) 02/28/2024 Travel 02/22/2024 8:15 AM CDT Nurse/Clinic Staff Only [facility] [address] [place] [address] Immunization/Inject ion (Rocephin 1 gram ) 02/22/2024 Travel 02/21/2024 1:00 PM CDT Nurse/Clinic Staff Only [facility] [address] [place] [address] Immunization/Inject ion (Rocephin #2/) 02/21/2024 Telephone [facility] [address] [place] [address] Vincent Dejesus DPM Appointment 02/20/2024 4:00 PM CDT Office Visit [facility] [address] [place] [address] Vincent Dejesus DPM Post-op (Right achilles-wound dehiscence); Ulcer (Follow up-left foot) 02/20/2024 Travel 02/18/2024 1:45 PM CDT Procedure Only [facility] [address] [address] Santa Petersen MD Vasectomy 02/18/2024 Travel 02/12/2024 11:30 AM CDT Office Visit [facility] [address] [place] [address] Vincent Dejesus DPTrena Follow Up (Right achilles tendon) 02/12/2024 Travel 02/12/2024 Telephone [facility] [address] [place] [address] Vincent Dejesus DPM [employer] 01/30/2024 1:15 PM CDT Office Visit [facility] [address] [address] Vincent Dejesus DPTrena Follow Up (Right 6 week post op, /Left ulcer ) 01/30/2024 Travel 01/28/2024 2:00 PM CDT Procedure Only [facility] [address] [place] [address] Santa Petersen MD Vasectomy 01/28/2024 Travel from Last 3 Months Immunizations Name Administration Dates Next Due COVID-19 vaccine ([employer] 30mcg/0.3mL) 12YO+ BIVALENT PF, MDV 07/11/2022 [...] Care Team (Late st Contact Info) Description 04/29/2024 4:00 PM CDT Office Visit [facility] [address] [place] [address] Vincent Dejesus DPM [address] [place] [address] 06/04/2024 3:45 PM CDT Office Visit [facility] [address] [place] [address] Vincent Dejesus DPM [address] [place] [address] Health Maintenance Due Date Last Done Comments [...] this topic Medical Devices Implanted Type Area Disc Jockey Device Identifier Shelf Expiration Date Model / Serial / Lot Graft Bone 5ml Cerament G W/Gentamicin - [id number] Implanted:Qty: 1 on 03/19/2024 by Won Paniagua DPM at [facility] Right: Ankle Bonesupport 06/11/2026 [id number] / / [id number] Procedures Procedure Name Priority Date/Time Associated Diagnosis [...] Notes 45 MINS- 0730SUPINECerament G requested by Eugene De Leon will be here for the case 8/6 JT Special Needs HT 6'9 WT 143.4 [...] vasectomy COLONOSCOPY SCREENING Routine 10/12/2022 8:08 AM CHART COMPUTER Screening for colon cancer from Last 3 Months or Most Recently Relevant to Health Maintenance Results * (ABNORMAL) CBC WITH AUTO DIFFERENTIAL (03/27/2024 3:30 PM CDT) Only the most recent of2 resultswithin the time period is included. WHITE BLOOD COUNT 8.3 4.5 - 11.0 thou/cu mm 03/27/2024 3:36 PM CDT [facility] RED BLOOD COUNT 5.14 4.30 - 5.90 mil/cu mm 03/27/2024 3:36 PM CDT [facility] HEMOGLOBIN 15.4 13.5 - 17.5 g/dL 03/27/2024 3:36 PM CDT [facility] HEMATOCRIT 43.2 37.0 - 53.0 % 03/27/2024 3:36 PM CDT [facility] MCV 84 80 - 100 fL 03/27/2024 3:36 PM CDT [facility] MCH 30.0 26.0 - 34.0 pg 03/27/2024 3:36 PM CDT [facility] MCHC 35.6 32.0 - 36.0 g/dL 03/27/2024 3:36 PM CDT [facility] RDW 13.3 11.5 - 15.5 % 03/27/2024 3:36 PM CDT [facility] PLATELET COUNT 249 140 - 440 thou/cu mm 03/27/2024 3:36 PM CDT [facility] MPV 9.2 6.5 - 11.0 fL 03/27/2024 3:36 PM CDT [facility] % NEUT 55.0 % 03/27/2024 3:36 PM CDT [facility] % LYMPH 31.0 % 03/27/2024 3:36 PM CDT [facility] % MONO 8.0 % 03/27/2024 3:36 PM CDT [facility] % EOS 5.5 % 03/27/2024 3:36 PM CDT [facility] % BASO 0.5 % 03/27/2024 3:36 PM CDT [facility] ABSOLUTE NEUTROPHILS 4.6 1.7 - 7.0 thou/cu mm 03/27/2024 3:36 PM CDT [facility] ABSOLUTE LYMPHOCYTES 2.6 0.9 - 2.9 thou/cu mm 03/27/2024 3:36 PM CDT [facility] ABSOLUTE MONOCYTES 0.7 <0.9 thou/cu mm 03/27/2024 3:36 PM CDT [facility] ABSOLUTE EOSINOPHILS 0.5(H) <0.5 thou/cu mm 03/27/2024 3:36 PM CDT [facility] ABSOLUTE BASOPHILS 0.0 <0.3 thou/cu mm 03/27/2024 3:36 PM CDT [facility] Blood BLOOD SPECIMEN / Unknown Venipuncture / Unknown 03/27/2024 3:30 PM CDT 03/27/2024 3:32 PM CDT Aram Rangel MD HEMATOLOGY [facility] [address] [place] [address], * (ABNORMAL) COMP METABOLIC PANEL (03/27/2024 3:30 PM CDT) [facility] SODIUM 139 136 - 145 mmol/L 03/27/2024 11:05 PM T [facility] POTASSIUM 4.4 3.5 - 5.1 mmol/L 03/27/2024 11:05 PM T [facility] CHLORIDE 104 98 - 107 mmol/L 03/27/2024 11:05 PM T [facility] CO2,TOTAL 22 22 - 29 mmol/L 03/27/2024 11:05 PM T [facility] ANION GAP 13 5 - 18 03/27/2024 11:05 PM T [facility] GLUCOSE 100(H) 70 - 99 mg/dL 03/27/2024 11:05 PM T [facility] CALCIUM 9.6 8.6 - 10.0 mg/dL 03/27/2024 11:05 PM T [facility] BUN 21(H) 6 - 20 mg/dL 03/27/2024 11:05 PM [facility] CREATININE 1.22(H) 0.70 - 1.20 mg/dL 03/27/2024 11:05 PM [facility] BUN/CREAT RATIO 17 10 - 20 11:05 PM [facility] eGFR 73(L) >90 mL/min/1.7 3m2 03/27/2024 11:05 PM T [facility] Comment:As of 2021, eG FR is calculated by the CKD-EPI creatinine equation without race adjustment. ??eGFR can be influenced by muscle mass, exercise, and diet. ??The reported eGFR is an estimation only and is only applicable if the renal function is stable. ALBUMIN 4.6 4.0 - 4.9 g/dL 03/27/2024 11:05 PM T [facility] PROTEIN,TOTAL 7.4 6.0 - 8.0 g/dL 03/27/2024 11:05 PM CDT [facility] BILIRUBIN,TOTAL 0.2 0.0 - 1.2 mg/dL 03/27/2024 11:05 PM CDT [facility] ALK PHOSPHATASE 74 40 - 129 IU/L 03/27/2024 11:05 PM T [facility] ALT (SGPT) 86(H) 10 - 50 IU/L 03/27/2024 11:05 PM CDT [facility] AST (SGOT) 47 10 - 50 IU/L 03/27/2024 11:05 PM T [facility] Blood BLOOD SPECIMEN / Unknown Venipuncture / Unknown 03/27/2024 3:30 PM CDT 03/27/2024 3:32 PM CDT Aram Rangel MD CHEMISTRY [facility] [address] [address], * (ABNORMAL) CBC W PLT NO DIFF (03/23/2024 8:19 AM CDT) WHITE BLOOD COUNT 14.1(H) 4.5 - 11.0 thou/cu mm 03/23/2024 8:37 AM CDT [facility] RED BLOOD COUNT 4.91 4.30 - 5.90 mil/cu mm 03/23/2024 8:37 AM CDT [facility] HEMOGLOBIN 14.6 13.5 - 17.5 g/dL 03/23/2024 8:37 AM T [facility] HEMATOCRIT 41.0 37.0 - 53.0 % 03/23/2024 8:37 AM T [facility] MCV 84 80 - 100 fL 03/23/2024 8:37 AM T [facility] MCH 29.7 26.0 - 34.0 pg 03/23/2024 8:37 AM CDT [facility] MCHC 35.6 32.0 - 36.0 g/dL 03/23/2024 8:37 AM CDT [facility] RDW 12.4 11.5 - 15.5 % 03/23/2024 8:37 AM CDT [facility] PLATELET COUNT 231 140 - 440 thou/cu mm 03/23/2024 8:37 AM CDT [facility] MPV 9.1 6.5 - 11.0 fL 03/23/2024 8:37 AM CDT [facility] NRBC 0.0 % 03/23/2024 8:37 AM CDT [facility] ABS NRBC 0.0 thou /cu mm 03/23/2024 8:37 AM CDT [facility] Blood BLOOD SPECIMEN / Unknown Butterfly / Unknown 03/23/2024 8:19 AM CDT 03/23/2024 8:34 AM CDT Kesha Usco-Twjx-Gdtx Gil URBINA HEMATOLOGY Performing Organization Address City/[facility]/ZIP Co de Phone Number [facility] SENDOUT INTERNAL ZIP [phone] [place] [id number] * CREATININE (03/23/2024 8:19 AM CDT) Only the most recent of4 resultswithin the time period is included. eGFR >90 >90 mL/min/1.7 3m2 03/23/2024 8:55 AM T [facility] Comment:As of 2021, eG FR is calculated by the CKD-EPI creatinine equation without race adjustment. ??eGFR can be influenced by muscle mass, exercise, and diet. ??The reported eGFR is an estimation only and is only applicable if the renal function is stable. CREATININE 0.82 0.70 - 1.20 mg/dL 03/23/2024 8:55 AM CDT [facility] Blood BLOOD SPECIMEN / Unknown Butterfly / Unknown 03/23/2024 8:19 AM CDT 03/23/2024 8:33 AM CDT Cheikh Paige MD CHEMISTRY Performing Organization Address City/[facility]/ZIP Co de Phone Number [facility] SENDOUT INTERNAL ZIP [phone] [place] [id number] * HCHG ANES BLOCK INJ PERIPH (03/22/2024 [...] BLOCK INJ PERIPH (03/22/2024 10:01 AM CDT) Lurdes Pinto MD - 03/22/2024 10:01 AM CDT Lurdes [...] CULTURE No Growth. 03/25/2024 10:46 AM CDT [facility] GRAM STAIN No Epithelial cells 03/25/2024 10:46 AM CDT [facility] GRAM STAIN 4+ RBCs 03/25/2024 10:46 AM CDT [facility] GRAM STAIN No organisms seen 03/25/2024 10:46 AM CDT [facility] GRAM STAIN 1+ WBC 03/25/2024 10:46 AM CDT [facility] GRAM STAIN Gram stain performed by [place], [place] 03/25/2024 10:46 AM CDT [facility] Swab (Right foot) Non-Blood / Unknown 03/22/2024 8:52 AM CDT 03/22/2024 9:47 AM CDT José Miguel Fernández DPM MICROBIOLOGY [facility] [address] [place] [address], [facility] SENDOUT INTERNAL ZIP [phone] [place] [address] * ANAEROBIC CULTURE (03/22/2024 8:52 AM CDT) Only the most recent of2 resultswithin the time period is included. CULTURE No anaerobes isolated 03/28/2024 11:16 AM CDT [facility] Swab (Right foot) Non-Blood / Unknown 03/22/2024 8:52 AM CDT 03/22/2024 9:47 AM CDT José Miguel Fernández DPM MICROBIOLOGY [facility] [address] [place] [address], * HCHG MASK PR5 (03/22/2024 8:29 AM [...] - 20.0 ug/mL 03/21/2024 10:14 PM CDT [facility] DATE OF LAST DOSE,TROUGH Not Given 03/21/2024 10:14 PM CDT [facility] TIME OF LAST DOSE,TROUGH Not Given 03/21/2024 10:14 PM CDT [facility] Blood BLOOD SPECIMEN / Unknown Non-Lab Venipuncture / Unknown 03/21/2024 9:40 PM CDT 03/21/2024 9:48 PM CDT Won Paniagua DPM CHEMISTRY Performing Organization Address City/[facility]/ZIP Co de Phone Number [facility] SENDOUT INTERNAL ZIP [phone] [place] [phone] * SEDIMENTATION RATE (03/20/2024 5:40 AM CDT) SEDIMENTATION RATE 8 <15 mm/hr 2023 7:30 AM CDT [facility] Blood BLOOD SPECIMEN / Unknown Venipuncture / Unknown 03/20/2024 5:40 AM CDT 03/20/2024 6:24 AM CDT Won Paniagua DPM HEMATOLOGY [facility] SENDOUT INTERNAL ZIP [address] [address] [place] [address] * C-REACTIVE PROTEIN (03/20/2024 5:40 AM CDT) Only the most recent of2 resultswithin the time period is included. C-REACTIVE PROTEIN <0.3 <0.5 mg/dL 03/20/2024 6:53 AM CDT [facility] Blood BLOOD SPECIMEN / Unknown Venipuncture / Unknown 03/20/2024 5:40 AM CDT 03/20/2024 6:24 AM CDT Cheikh Paige MD CHEMISTRY Performing Organization Address [facility] Co de Phone Number [facility] SENDOUT INTERNAL ZIP [phone] [place] [address] * HEMOGLOBIN A1C SCREENING (03/19/2024 4:12 PM CDT) Pathologist [facility] HEMOGLOBIN A1C SCREENING 5.5 <=6.4 % 03/20/2024 7:05 AM CDT [facility] Blood BLOOD SPECIMEN / Unknown Butterfly / Unknown 03/19/2024 4:12 PM CDT 03/19/2024 4:28 PM CDT Narrative [facility] - 03/20/2024 7:05 AM CDT ? (<5.7%) ?Normal ? (5.7% to 6.4%) ? Indicates prediabetes ? (>=6.5%) ? Confirms diabetes Falsely low levels may be seen with: Recent Transfusion, Recent Significant Blood Loss, Hemolytic Diseases, or Falsely elevated levels may be seen with: Untreated Anemias, Splenectomy Kesha LouiseZcaz-Qlnd-Qqnu Chung DO CHEMISTRY Performing Organization Address [facility]/ZIP Co de Phone Number [facility] SENDOUT INTERNAL ZIP [phone] [place] [address] * PLATELET COUNT (03/19/2024 4:12 PM CDT) Pathologist [facility] PLATELET COUNT 226 140 - 440 thou/cu mm 03/19/2024 4:35 PM CDT [facility] MPV 9.3 6.5 - 11.0 fL 03/19/2024 4:35 PM CDT [facility] Blood BLOOD SPECIMEN / Unknown Butterfly / Unknown 03/19/2024 4:12 PM CDT 03/19/2024 4:28 PM CDT Won Paniagua DPM HEMATOLOGY [facility] SENDOUT INTERNAL ZIP [phone] [place] [address] * (ABNORMAL) LIPID PANEL (03/19/2024 4:12 PM CDT) Pathologist [facility] CHOLESTEROL,TOTAL 225(H) 100 - 199 mg/dL 03/19/2024 10:29 PM CDT [facility] Comment: Cholesterol, Total Reference Ranges Desirable <200 mg/dL Borderline 200-239 mg/dL High >=240 mg/dL TRIGLYCERIDES 291(H) <150 mg/dL 03/19/2024 10:29 PM CDT [facility] HDL CHOLESTEROL 31(L) >40 mg/dL 10:29 PM CDT [facility] NON-HDL CHOLESTEROL 194(H) <145 mg/dl 03/19/2024 10:29 PM CDT [facility] CHOL/HDL RATIO 7.26(H) <4.50 03/19/2024 10:29 PM CDT [facility] LDL CHOLESTEROL 136(H) <=130 mg/dL 03/19/2024 10:29 PM CDT [facility] VLDL CHOLESTEROL 58(H) <=30 mg/dL 03/19/2024 10:29 PM CDT [facility] Blood BLOOD SPECIMEN / Unknown Butterfly / Unknown 03/19/2024 4:12 PM CDT 03/19/2024 4:28 PM CDT Kesha Juuz-Lvbd-Hyes Gil URBINA CHEMISTRY [facility] SENDOUT INTERNAL ZIP [phone] [place] [address] * (ABNORMAL) BASIC METABOLIC PANEL (03/19/2024 4:12 PM CDT) SODIUM 141 136 - 145 mmol/L 03/19/2024 5:15 PM CDT [facility] POTASSIUM 4.2 3.5 - 5.1 mmol/L 03/19/2024 5:15 PM CDT [facility] CHLORIDE 105 98 - 107 mmol/L 03/19/2024 5:15 PM CDT [facility] CO2,TOTAL 24 22 - 29 mmol/L 03/19/2024 5:15 PM CDT [facility] ANION GAP 12 5 - 18 03/19/2024 5:15 PM CDT [facility] GLUCOSE 124(H) 70 - 99 mg/dL 03/19/2024 5:15 PM CDT [facility] CALCIUM 9.5 8.6 - 10.0 mg/dL 03/19/2024 5:15 PM CDT [facility] BUN 14 6 - 20 mg/dL 03/19/2024 5:15 PM CDT [facility] CREATININE 1.00 0.70 - 1.20 mg/dL 03/19/2024 5:15 PM CDT [facility] BUN/CREAT RATIO 14 10 - 20 5:15 PM CDT [facility] eGFR >90 >90 mL/min/1.7 3m2 03/19/2024 5:15 PM CDT [facility] Comment:As of 2021, eG FR is calculated by the CKD-EPI creatinine equation without race adjustment. ??eGFR can be influenced by muscle mass, exercise, and diet. ??The reported eGFR is an estimation only and is only applicable if the renal function is stable. Blood BLOOD SPECIMEN / Unknown Butterfly / Unknown 03/19/2024 4:12 PM CDT 03/19/2024 4:28 PM CDT Cheikh Paige MD CHEMISTRY [facility] SENDOUT INTERNAL ZIP [phone] [place] [address] * XR Ankle 3 Views Right Portable- [...] XR ANKLE 3 VIEWS RIGHT PORTABLE LOCATION: [facility] MEDICAL IMAGING DATE: 03/19/2024 INDICATION: Pain COMPARISON: None. Procedure Note David Zhou MD - 03/19/2024 For Patients: As a result of the Cures Act, medical imagingexams and procedure reports are released immediately into your electronicmedical record. You may view this report before your referring provider.If you have questions, please contact your health care provider. EXAM: XR ANKLE 3 VIEWS RIGHT PORTABLE LOCATION: [facility] MEDICAL IMAGING DATE: 03/19/2024 INDICATION: Pain COMPARISON: [...] No Fungus isolated. 04/17/2024 7:58 AM CDT [facility] Swab (Right ankle) Non-Blood / Unknown 03/19/2024 8:01 AM CDT 03/19/2024 8:37 AM CDT Won Paniagua DPM MICROBIOLOGY [facility] [address] [place] [id number], * ETT (03/19/2024 7:47 AM CDT) Narrative [...] PM CDT) Case Report Pathology Report ?Case: [id number] ? Authorizing Provider: ??Santa Petersen MD ?Collected: ? 02/18/2024 1401 ? Ordering Location: ? [facility] ?? Received: ?02/18/2024 1430 ? Clinic ? Pathologist: ? Kannan Reynolds MD ? Specimens: ?? A) - Right Vas Deferens ? B) - Left Vas Deferens ? 02/20/2024 10:30 AM T [facility] Final Diagnosis A) VAS DEFERENS, RIGHT, VASECTOMY: Complete luminal cross-section of vas deferens identified B) VAS DEFERENS, LEFT, VASECTOMY: Complete luminal cross-section of vas deferens identified 02/20/2024 10:30 AM [facility] Clinical Information Sterilization 02/20/2024 10:30 AM [facility] Gross Description A) Received in [...] EVM 02/19/2024 ?? 02/20/2024 10:30 AM CDT [facility] Microscopic Description The final diagnosis is based on microscopic examination of appropriate sections of all specimens. 02/20/2024 10:30 AM CDT [facility] Additional Information Interpreted at [facility] - [address] [facility] [address], [place] [address] 02/20/2024 10:30 AM CDT [facility] Other (Right Vas Deferens) Non-Blood / Unknown 02/18/2024 2:01 PM CDT 02/18/2024 2:30 PM CDT Specimen (specimen) (Left Vas Deferens) Non-Blood / Unknown 02/18/2024 2:12 PM CDT 02/18/2024 2:30 PM CDT Santa Petersen MD PATHOLOGY/CYTOLOGY [facility] [address] [place] [id number], * COLONOSCOPY (10/12/2022 8:09 AM CHART COMPUTER) 10/12/2022 8:09 AM CHART COMPUTER Narrative Transcriptions Nolan Alaniz MD - 10/12/2022 [...] adequate candidate for conscious sedation. The endoscope [id number] was passed through the anus andadvanced to [...] 8:09 AM Procedure Code(s): --- Professional --- 19906, Colonoscopy, flexible; diagnostic, including collection of specimen(s) bybrushing or washing, when performed (separateprocedure) Diagnosis Code(s): --- Professional --- Z12.11, Encounter for screening formalignant neoplasm of colon CPT copyright 2020 [employer]. All rights reserved. The codes documented in this report are preliminary and upon ferruler reviewmay be revised to meet current compliance [...] no MRSA risk factors. #1 +MRSA 03/11/24 ([facility], [facility] chart notes) exclusions for contact precaution discontinuation (if > 12 months since positive culture): resides in acute/extermination supervisor care, receiving hemodialysis, has chronic open wounds/skin [...] Code Status Discussion: Reviewed Preferences Care Teams Drywall Application Supervisor Relationship Specialty Start Date End Date F[place] [id number] PCP - General Family Practice 10/16/22
== END 2024-03-20 23:58 | disposition home or self-care (01) ==
LOC: MS OUT 22:00
PROVIDERS: Nurse Practitioner Family; PCP Student in an Organized Health Care Education/Training Program; Referring Provider Student in an Organized Health Care Education/Training Program; Visit Provider Clinical Nurse Specialist
DX: A49.02 Methicillin resistant Staphylococcus aureus infection, unspecified site (principal)
CPT/HCPCS: 36415; 80048; 96365; 96366; 99211; G0463; J3370; J3372; J7030; J7050

== ENCOUNTER 2024-04-28 02:38 | Emergency (ER) | payer OTHER, SELFPAY ==
--- OUTSIDE RECORDS SUMMARY | 2024-04-28 02:42 | XMS_ITS | Clinical Summary ---
Author Organization [facility] [facility] Address [place], [place] [address] Care Team Providers Care Sales Analytics Manager Name Role Phone Fam Lewis DO Primary Care Provider [phone] Allergies No known active allergies Medications Medication Sig Dispensed Refills Start Date End Date Status durable medical equipment (DME)Indications:S/ P orthopedic surgery, follow-up exam 01EF-XL Airselect, Standard, XLarge 1 Each 10/24/2023 Active durable medical equipment (DME)Indications:S/ P orthopedic surgery, follow-up exam [id number] Achilles Wedge 1 Each 10/24/2023 Active durable medical equipment (DME)Indications:Ca lcific Achilles tendonitis 01EF-L Airselect, Standard, Large 1 Each 12/05/2023 Active durable medical equipment (DME)Indications:Ac hilles tendon rupture, right, initial encounter,Follow-up examination after orthopedic surgery ACHILLES WEDGE, REF: [id number] 01/02/2024 Active cadexomer iodine (Iodosorb) 0.9 % gelIndications:Post operative wound dehiscence, initial encounter Apply topically to affected area(s) once daily if needed (wound drainage). 10 g 01/09/2024 Active apixaban (ELIQUIS) 5 mg tabletIndications:A cute deep vein thrombosis (DVT) of distal vein of right lower extremity (HC) Take 1 Tablet (5 mg) by mouth two times daily. 60 Tablet 02/28/2024 Active atorvastatin (LIPITOR) 10 mg tabletIndications:M ixed hyperlipidemia Take 1 Tablet (10 mg) by mouth at bedtime. 30 Tablet 03/23/2024 Active acetaminophen (Tylenol Extra Strength) 500 mg tabletIndications:I nfection Take 1 Tablet (500 mg) by mouth every 6 hours if needed for Pain (Mild to moderate pain) for up to 7 days. Max acetaminophen dose: 4000mg in 24 hrs. 28 Tablet 03/23/2024 trimethoprim-sulfam ethoxazole, 160-800 mg, (BACTRIM DS, SEPTRA DS) tabIndications:bone infection Take 2 Tablets by mouth two times daily until gone. 110 Tablet 03/23/2024 Active Problems Problem Noted Date Diagnosed Date Achilles tendon infection 03/22/2024 Chronic deep vein thrombosis (DVT) of distal vein of right lower extremity 03/22/2024 S/P foot surgery, right 03/20/2024 Mixed hyperlipidemia 03/20/2024 Encounters Date Type Department Care Team Description 04/23/2024 3:30 PM CDT Office Visit [facility] [address] [place] [address] Vincent Dejesus DPTrena Post-op (Right achilles, DOS 03/22/24, 4 week post op) 04/23/2024 Travel 04/23/2024 Telephone [facility] [address] [place] [address] Santa Petersen MD Testing (Needs repeat US scrotum ) 04/16/2024 3:15 PM CDT Office Visit [facility] [address] [place] [address] Vincent Dejesus, DPM Post-op (Right achilles, DOS 03/22/24, 3 weeks post op) 04/16/2024 Travel 04/10/2024 Telephone [facility] [address] [place] [address] Vincent Dejesus DPM Appointment 04/10/2024 Travel 04/02/2024 3:15 PM CDT Office Visit [facility] [address] [place] [address] Vincent Dejesus, DPM Post-op (Right achilles post op , DOS 03/22/24/Left plantar great toe callus) 04/02/2024 Travel 03/28/2024 2:00 PM CDT Office Visit [facility] [address] [place] [address] Won Paniagua DPM Post-op (Right ankle- achilles) 03/27/2024 2:30 PM CDT Office Visit [facility] [address] [place] [address] Aram Rangel MD Hospital F/U (03/19/24, Clever, rt ankle infection) 03/27/2024 Travel 03/24/2024 Patient Outreach [facility] [address] [place] [address] Catrina Kraft, RN Primary RN Care Management; Hospital F/U (LACE 45) 03/22/2024 8:07 AM CDT Anesthesia Event [address] [address] Lurdes Patino MD 03/22/2024 7:20 AM CDT - 03/22/2024 8:36 AM CDT Surgery [address] [address] José Miguel Fernández, DPTrena REPEAT IRRIGATION AND DEBRIDEMENT OF RIGHT HEEL WITH ANTIBIOTIC BEAD REMOVAL AND WOUND CLOSURE 03/19/2024 7:25 AM CDT Anesthesia Event [address] [address] Kaleigh Vang CRNA Hottinger, Daniel George, MD 03/19/2024 7:20 AM CDT - 03/19/2024 8:54 AM CDT Surgery [address] [address] Won Paniagua DPM Irrigation and Debridement of the achilles tendon right ankle 03/19/2024 5:44 AM CDT - 03/23/2024 12:00 PM CDT Hospital Encounter [address] [address] Won Paniagua DPM Kaley Moss NP Chung, Uyen Khpe-Lrsy-Ipvy, DO Infection (Primary Dx); Achilles tendon infection; Mixed hyperlipidemia; S/P foot surgery, right Discharge Disposition: Home Self Care 03/19/2024 Travel 03/18/2024 10:00 AM CDT Preop Visit [facility] [address] [place] [address] Nieves Paz PA Preoperative Exam (03/19/2024) 03/18/2024 Travel 03/17/2024 Telephone [facility] [address] [address] [place] [address] Nieves Paz PA Medication Management 03/14/2024 1:00 PM CDT Office Visit [facility] [address] [facility] [address] [place] [address] Won Paniagua, MARY Foot Problem (right achilles and right foot) 03/14/2024 Travel 03/11/2024 4:30 PM CDT Office Visit [facility] [address] [place] [address] Vincent Dejesus DPM Follow Up (Right achilles, wound dehiscence ) 03/11/2024 Travel 03/10/2024 Orders Only [facility] Scanner 1 scan: (1-Ord) [facility], MR ANKLE RT WO/W, 03/10/2024 03/10/2024 Orders Only [facility] Scanner 1 scan: (1-Ord) [place], RIGHT FOOT, 03/10/2024 02/28/2024 3:30 PM CDT Office Visit [facility] [address] [facility] [address] [address] Vincent Dejesus DPM Post-op (Right achilles-wound dehiscence); Ulcer (Follow up-left foot) 02/28/2024 Travel 02/22/2024 8:15 AM CDT Nurse/Clinic Staff Only [facility] [address] [place] [address] Immunization/Inject ion (Rocephin 1 gram ) 02/22/2024 Travel 02/21/2024 1:00 PM CDT Nurse/Clinic Staff Only [facility] [address] [place] [address] Immunization/Inject ion (Rocephin #2/) 02/21/2024 Telephone [facility] [address] [place] [facility] [facility] [place] [address] Vincent Dejesus DPM Appointment 02/20/2024 4:00 PM CDT Office Visit [facility] [address] [place] [address] Vincent eDjesus DPM Post-op (Right achilles-wound dehiscence); Ulcer (Follow up-left foot) 02/20/2024 Travel 02/18/2024 1:45 PM CDT Procedure Only [facility] [address] [place] [facility] [place] [address] Santa Petersen MD Vasectomy 02/18/2024 Travel 02/12/2024 11:30 AM CDT Office Visit [facility] [address] [place] [address] Vincent Dejesus DPTrena Follow Up (Right achilles tendon) 02/12/2024 Travel 02/12/2024 Telephone [facility] [address] [place] [address] Vincent Dejesus DPM [employer] 01/30/2024 1:15 PM CDT Office Visit [facility] [address] [place] [facility] [place] [address] Vincent Dejesus DPTrena Follow Up (Right 6 week post op, /Left ulcer ) 01/30/2024 Travel 01/28/2024 2:00 PM CDT Procedure Only [facility] [address] [place] [facility] [place] [address] Santa Petersen MD Vasectomy 01/28/2024 Travel from Last 3 Months Immunizations Name Administration Dates Next Due COVID-19 vaccine (Quick Hang NTech 30mcg/0.3mL) 12YO+ BIVALENT PF, MDV 07/11/2022 Influenza, IIV4 07/11/2022,06/10/2018 Influenza, IIV4 (=>6mos) MDV 04/28/2015 Tdap 03/18/2024,06/02/2015 Social History Tobacco Use Types Packs/Day Years Used Date Smoking Tobacco: Never Passive Smoke Exposure: Never Smokeless Tobacco: Never Tobacco Cessation:Counseling Given: [...] Sign Reading Time Taken Comments Blood Pressure 144/95 04/23/2024 3:51 PM CDT Pulse 100 04/16/2024 3:18 PM CDT Temperature 36.8 ??C (98.3 ??F) 03/27/2024 2:46 PM CD T Respiratory Rate 16 03/23/2024 10:3 3 AM CDT Oxygen Saturation 93% 04/23/2024 3:51 PM CDT Inhaled Oxygen Concentration - - Weight 143.7 kg (316 lb 12.8 oz) 03/19/2024 6:12 AM CDT Height 205.7 cm (6' 9) 03/19/2024 6:12 AM CDT Body Mass Index 33.95 03/19/2024 6:12 AM CDT Plan of Treatment Upcoming Encounters Date Type Department Care Team (Late st Contact Info) Description 06/04/2024 3:45 PM CDT Office Visit [facility] [address] [place] [address] Vincent Dejesus DPM [address] [place] [address] Health Maintenance Due Date Last Done Comments Hepatitis C screening for age 18-79 1993 COVID-19 vaccine series (2022- season) 2024 07/11/2022, 08/03/2021, 10/23/2020, Additional history exists Influenza for age 9-49 04/13/2024 , 06/10/2018, 04/28/2015 Depression screening for age 12+ 08/14/2024 08/14/2023, 07/11/2022, 07/11/2022, Additional history exists BMI (ht and wt on same day) for age 18+ 03/18/2025 03/18/2024, 08/14/2023, 07/11/2022 Lipids for age 45-75 03/19/2029 03/19/2024, 07/03/20 22 Colonoscopy through age 75 10/12/203210/12, 10/12/2022, 10/12/2022 Tetanus booster 03/18/2034 03/18/2024, 06/02/2015 HIV for age 15-65 Completed 07/03/2022 (Co mpleted outside of [facility]) Tdap Completed 03/18/2024, 06/02/2015 Pneumococcal series for age 6-64 Aged Out No longer eligible based on patient's age to complete this topic Medical Devices Implanted Type Area Car Wash Manager Device Identifier Shelf Expiration Date Model / Serial / Lot Graft Bone 5ml Cerament G W/Gentamicin - [id number] Implanted:Qty: 1 on 03/19/2024 by Won Paniagua DPM at [facility] Right: Ankle Bonesupport 06/11/2026 [id number] / / [id number] Procedures Procedure Name Priority Date/Time Associated Diagnosis Comments CBC WITH AUTO DIFFERENTIAL Routine 03/27/2024 3:30 PM CDT Infection of Achilles tendon COMP METABOLIC PANEL Routine 03/27/2024 3:30 PM CDT Infection of Achilles tendon CBC WITH AUTO DIFFERENTIAL Routine 03/27/2024 3:30 PM CDT Infection of Achilles tendon CBC W PLT NO DIFF Early AM 03/23/2024 8:1 9 AM CDT CREATININE Early AM 03/23/2024 8:19 AM CDT PERIPHERAL BLOCK Routine 03/22/2024 10:0 2 AM CDT PERIPHERAL BLOCK Routine 03/22/2024 10:0 1 AM CDT AEROBIC BACTERIAL CULTURE, STAIN Today 03/22/2024 8:52 AM CDT ANAEROBIC CULTURE Today 03/22/2024 8:5 2 AM CDT SUPRAGLOTTIC-LMA Routine 03/22/2024 8:29 AM CDT INCISION DRAINAGE FOOT 03/22/2024 7:57 AM CDT right heel infection Case Notes [facility] 0730 PRONE CREATININE Early AM 03/22/2024 7:08 AM CDT VANCOMYCIN TROUGH Timed 03/21/2024 9:4 0 PM CDT CREATININE Early AM 03/21/2024 8:04 AM CDT CBC WITH AUTO DIFFERENTIAL Early AM 03/20/2024 5:40 AM CDT CREATININE Early AM 03/20/2024 5:40 AM CDT C-REACTIVE PROTEIN Early AM 03/20/2024 5: 40 AM CDT SEDIMENTATION RATE Early AM 03/20/2024 5: 40 AM CDT CBC WITH AUTO DIFFERENTIAL Early AM 03/20/2024 5:40 AM CDT HEMOGLOBIN A1C SCREENING SHE 03/19/2024 4:12 PM CDT LIPID PANEL SHE 03/19/2024 4:12 PM CDT BASIC METABOLIC PANEL SHE 03/19/2024 4:12 PM CDT PLATELET COUNT Timed 03/19/2024 4:12 PM CDT C-REACTIVE PROTEIN Timed 03/19/2024 4: 12 PM CDT XR ANKLE 3 VIEWS RIGHT PORTABLE Routine 03/19/2024 9:07 AM CDT AEROBIC BACTERIAL CULTURE, STAIN Today 03/19/2024 8:01 AM CDT FUNGUS CULT, OTHER SOURCE Today 03/19/2024 8:01 AM CDT ANAEROBIC CULTURE Today 03/19/2024 8:0 1 AM CDT ENDOTRACHEAL TUBE Routine 03/19/2024 7:4 7 AM CDT PERIPHERAL BLOCK Routine 03/19/2024 7:26 AM CDT PERIPHERAL BLOCK Routine 03/19/2024 7:26 AM CDT INCISION DRAINAGE FOOT Class C Urgent 03/19/2024 7:15 AM CDT Infection Case Notes 45 MINS- 0730SUPINECerament G requested by Dr. Paniagua, Eugene Carmen will be here for the case 03/18 JT Special Needs HT 6'9 WT 143.4 kg BMI 33.88Eliquis last dose 03/17New dx of MRSA per patient BEDSIDE US STUDY ARCHIVE Routine 03/19/2024 6:59 AM CDT BEDSIDE US STUDY ARCHIVE Routine 03/19/2024 6:19 AM CDT SCAN-CARDIAC STRIP 03/19/2024 12 :00 AM CDT SCAN-CARDIAC STRIP 03/19/2024 12 :00 AM CDT SCAN-MRI INTERPRETATION 03/10/2024 12:00 AM CDT SCAN-MRI INTERPRETATION 03/10/2024 12:00 AM CDT AEROBIC BACTERIAL CULTURE, STAIN Routine 02/20/2024 4:10 PM CDT Postoperative wound dehiscence, initial encounter PATH TISSUE EXAM Routine 02/18/2024 2:01 PM CDT Status post vasectomy COLONOSCOPY SCREENING Routine 10/12/2022 8:08 AM MANAGING SUPERVISOR Screening for colon cancer from Last 3 Months or Most Recently Relevant to Health Maintenance Results * (ABNORMAL) CBC WITH AUTO DIFFERENTIAL (03/27/2024 3:30 PM CDT) Only the most recent of2 resultswithin the time period is included. WHITE BLOOD COUNT 8.3 4.5 - 11.0 thou/cu mm 03/27/2024 3:36 PM CDT [facility] RED BLOOD COUNT 5.14 4.30 - 5.90 mil/cu mm 03/27/2024 3:36 PM CDT [facility] HEMOGLOBIN 15.4 13.5 - 17.5 g/dL 03/27/2024 3:36 PM CDT [facility] HEMATOCRIT 43.2 37.0 - 53.0 % 03/27/2024 3:36 PM CDT [facility] MCV 84 80 - 100 fL 03/27/2024 3:36 PM CDT [facility] MCH 30.0 26.0 - 34.0 pg 03/27/2024 3:36 PM CDT [facility] MCHC 35.6 32.0 - 36.0 g/dL 03/27/2024 3:36 PM CDT [facility] RDW 13.3 11.5 - 15.5 % 03/27/2024 3:36 PM CDT [facility] PLATELET COUNT 249 140 - 440 thou/cu mm 03/27/2024 3:36 PM CDT [facility] MPV 9.2 6.5 - 11.0 fL 03/27/2024 3:36 PM CDT [facility] % NEUT 55.0 % 03/27/2024 3:36 PM CDT [facility] % LYMPH 31.0 % 03/27/2024 3:36 PM CDT [facility] % MONO 8.0 % 03/27/2024 3:36 PM CDT [facility] % EOS 5.5 % 03/27/2024 3:36 PM CDT [facility] % BASO 0.5 % 03/27/2024 3:36 PM CDT [facility] ABSOLUTE NEUTROPHILS 4.6 1.7 - 7.0 thou/cu mm 03/27/2024 3:36 PM CDT [facility] ABSOLUTE LYMPHOCYTES 2.6 0.9 - 2.9 thou/cu mm 03/27/2024 3:36 PM CDT [facility] ABSOLUTE MONOCYTES 0.7 <0.9 thou/cu mm 03/27/2024 3:36 PM CDT [facility] ABSOLUTE EOSINOPHILS 0.5(H) <0.5 thou/cu mm 03/27/2024 3:36 PM CDT [facility] ABSOLUTE BASOPHILS 0.0 <0.3 thou/cu mm 03/27/2024 3:36 PM CDT [facility] Blood BLOOD SPECIMEN / Unknown Venipuncture / Unknown 03/27/2024 3:30 PM CDT 03/27/2024 3:32 PM CDT Aram Rangel MD HEMATOLOGY [facility] [address] [place] [address], * (ABNORMAL) COMP METABOLIC PANEL (03/27/2024 3:30 PM CDT) SODIUM 139 136 - 145 mmol/L 03/27/2024 11:05 PM CDT [facility] POTASSIUM 4.4 3.5 - 5.1 mmol/L 03/27/2024 11:05 PM [facility]AL [facility] CHLORIDE 104 98 - 107 mmol/L 03/27/2024 11:05 PM [facility] CO2,TOTAL 22 22 - 29 mmol/L 03/27/2024 11:05 PM [facility] ANION GAP 13 5 - 18 03/27/2024 11:05 PM [facility] GLUCOSE 100(H) 70 - 99 mg/dL 03/27/2024 11:05 PM [facility] CALCIUM 9.6 8.6 - 10.0 mg/dL 03/27/2024 11:05 PM [facility] BUN 21(H) 6 - 20 mg/dL 03/27/2024 11:05 PM [facility] CREATININE 1.22(H) 0.70 - 1.20 mg/dL 03/27/2024 11:05 PM [facility] BUN/CREAT RATIO 17 10 - 20 11:05 PM [facility] eGFR 73(L) >90 mL/min/1.7 3m2 03/27/2024 11:05 PM [facility] Comment:As of 2021, eG FR is calculated by the CKD-EPI creatinine equation without race adjustment. ??eGFR can be influenced by muscle mass, exercise, and diet. ??The reported eGFR is an estimation only and is only applicable if the renal function is stable. ALBUMIN 4.6 4.0 - 4.9 g/dL 03/27/2024 11:05 PM [facility] PROTEIN,TOTAL 7.4 6.0 - 8.0 g/dL 03/27/2024 11:05 PM [facility] BILIRUBIN,TOTAL 0.2 0.0 - 1.2 mg/dL 03/27/2024 11:05 PM [facility] ALK PHOSPHATASE 74 40 - 129 IU/L 03/27/2024 11:05 PM CDT [facility] ALT (SGPT) 86(H) 10 - 50 IU/L 03/27/2024 11:05 PM CDT [facility] AST (SGOT) 47 10 - 50 IU/L 03/27/2024 11:05 PM CDT [facility] Blood BLOOD SPECIMEN / Unknown Venipuncture / Unknown 03/27/2024 3:30 PM CDT 03/27/2024 3:32 PM CDT Aram Rangel MD CHEMISTRY [facility] [address] [place] [place] [address], * (ABNORMAL) CBC W PLT NO DIFF (03/23/2024 8:19 AM CDT) WHITE BLOOD COUNT 14.1(H) 4.5 - 11.0 thou/cu mm 03/23/2024 8:37 AM [facility] RED BLOOD COUNT 4.91 4.30 - 5.90 mil/cu mm 03/23/2024 8:37 AM [facility] HEMOGLOBIN 14.6 13.5 - 17.5 g/dL 03/23/2024 8:37 AM [facility] HEMATOCRIT 41.0 37.0 - 53.0 % 03/23/2024 8:37 AM [facility] MCV 84 80 - 100 fL 03/23/2024 8:37 AM [facility] MCH 29.7 26.0 - 34.0 pg 03/23/2024 8:37 AM [facility] MCHC 35.6 32.0 - 36.0 g/dL 03/23/2024 8:37 AM [facility] RDW 12.4 11.5 - 15.5 % 03/23/2024 8:37 AM [facility] PLATELET COUNT 231 140 - 440 thou/cu mm 03/23/2024 8:37 AM [facility] MPV 9.1 6.5 - 11.0 fL 03/23/2024 8:37 AM [facility] NRBC 0.0 % 03/23/2024 8:37 AM CDT [facility] ABS NRBC 0.0 thou /cu mm 03/23/2024 8:37 AM CDT [facility] Blood BLOOD SPECIMEN / Unknown Butterfly / Unknown 03/23/2024 8:19 AM CDT 03/23/2024 8:34 AM CDT Kesha BiswasWgfr-Xniu-Rgrq Gil [facility] Performing Organization Address City/[facility]/ZIP Co de Phone Number [facility] SENDOUT INTERNAL ZIP [address] [place] [id number] * CREATININE (03/23/2024 8:19 AM CDT) Only the most recent of4 resultswithin the time period is included. eGFR >90 >90 mL/min/1.7 3m2 03/23/2024 8:55 AM CDT [facility] Comment:As of 2021, eG FR is calculated by the CKD-EPI creatinine equation without race adjustment. ??eGFR can be influenced by muscle mass, exercise, and diet. ??The reported eGFR is an estimation only and is only applicable if the renal function is stable. CREATININE 0.82 0.70 - 1.20 mg/dL 03/23/2024 8:55 AM CDT [facility] Blood BLOOD SPECIMEN / Unknown Butterfly / Unknown 03/23/2024 8:19 AM CDT 03/23/2024 8:33 AM CDT Cheikh Paige MD CHEMISTRY [facility] SENDOUT INTERNAL ZIP [phone] [place] [address] * HCHG ANES BLOCK INJ PERIPH (03/22/2024 10:02 AM CDT) Narrative Lurdes Patino MD - 03/22/2024 10:02 AM CDT Lurdes Patino MD ? 03/22/2024 10:03 AM Peripheral Block Patient location during procedure: pre-op Start time: 03/22/2024 7:52 AM End time: 03/22/2024 7:53 AM Reason for block: at surgeon's request and post-op pain PreProcedure Checklist Completed: patient identified, site marked, risks and benefits discussed, surgical consent, timeout performed and hand hygiene performed. Peripheral Block Patient position: supine Prep: chloraprep Patient monitoring: continuous pulse oximetry, ECG and blood pressure Neuro Status: mild sedation Block type: adductor canal and lower extremity , regional analgesia techniques Lower extremity block type: adductor canal block of the femoral nerve Laterality: right Injection technique: single injection Injection assessment: incremental Needle Needle type: Stimuplex Needle gauge: 20 G Needle length: 4 in Unilateral needle Localization (plane blocks): needle and expected nerve location visualized, local anesthetic visualized in anatomic plane and anatomic plane and expected location of nerve appears normal Catheter Catheter used:no Events: no complications. Lurdes Patino MD ANESTHESIA PX NOTE ORDERABLES * HCHG ANES BLOCK INJ PERIPH (03/22/2024 10:01 AM CDT) Narrative Lurdes Patino MD - 03/22/2024 10:01 AM CDT Lurdes Patino MD ? 03/22/2024 10:02 AM Peripheral Block Patient location during procedure: pre-op Start time: 03/22/2024 7:50 AM End time: 03/22/2024 7:52 AM Reason for block: at surgeon's request and post-op pain PreProcedure Checklist Completed: patient identified, site marked, risks and benefits discussed, surgical consent, timeout performed and hand hygiene performed. Peripheral Block Patient position: supine Prep: chloraprep Patient monitoring: continuous pulse oximetry, ECG and blood pressure Supplemental O2: yes Neuro Status: mild sedation Block type: popliteal sciatic and lower extremity , regional analgesia techniques Lower extremity block type: popliteal sciatic Laterality: right Injection technique: single injection Injection assessment: incremental Needle Needle type: Stimuplex Needle gauge: 20 G Needle length: 4 in Unilateral needle localization (ultrasound): live ultrasound guidance, needle and nerve visualized, no pathologic findings, local anesthetic visualized surrounding nerve, nerve appears normal and permanent images obtained. Catheter Catheter used:no Events: no complications. Lurdes Patino MD ANESTHESIA PX NOTE ORDERABLES * AEROBIC BACTERIAL CULTURE, STAIN (03/22/2024 8:52 AM CDT) Only the most recent of3 resultswithin the time period is included. CULTURE No Growth. 03/25/2024 10:46 AM CDT [facility] GRAM STAIN No Epithelial cells 03/25/2024 10:46 AM CDT [facility] GRAM STAIN 4+ RBCs 03/25/2024 10:46 AM CDT [facility] GRAM STAIN No organisms seen 03/25/2024 10:46 AM CDT [facility] GRAM STAIN 1+ WBC 03/25/2024 10:46 AM CDT [facility] GRAM STAIN Gram stain performed by [place], [place] 03/25/2024 10:46 AM CDT [facility] Swab (Right foot) Non-Blood / Unknown 03/22/2024 8:52 AM CDT 03/22/2024 9:47 AM CDT José Miguel Fernández DPM MICROBIOLOGY [facility] [address] LABORATORY SENDOUT INTERNAL ZIP [phone] [place] [address] * ANAEROBIC CULTURE (03/22/2024 8:52 AM CDT) Only the most recent of2 resultswithin the time period is included. CULTURE No anaerobes isolated 03/28/2024 11:16 AM CDT [facility] Swab (Right foot) Non-Blood / Unknown 03/22/2024 8:52 AM CDT 03/22/2024 9:47 AM CDT José Miguel Fernández DPM MICROBIOLOGY [facility] [address] [place] [address], * HCHG MASK PR5 (03/22/2024 8:29 AM CDT) Narrative Abrahan Lujan CRNA - 03/22/2024 8:29 AM CDT Abrahan Lujan CRNA ? 03/22/2024 ??8:30 AM Procedure: Supraglottic Patient location during procedure: OR Supraglottic Airway Properties Mask Ventilation: not attempted Type: unique Tube Size: 5 Insertion Attempts: 1 Placement Verification: auscultation and CO2 detection Assessment Assessment: atraumatic and dentition unchanged Lurdes Patino MD ANESTHESIA PX NOTE ORDERABLES * VANCOMYCIN TROUGH (03/21/2024 9:40 PM CDT) VANCOMYCIN,TRO UGH 9.4 7.0 - 20.0 ug/mL 03/21/2024 10:14 PM CDT [facility] DATE OF LAST DOSE,TROUGH Not Given 03/21/2024 10:14 PM CDT [facility] TIME OF LAST DOSE,TROUGH Not Given 03/21/2024 10:14 PM CDT [facility] Blood BLOOD SPECIMEN / Unknown Non-Lab Venipuncture / Unknown 03/21/2024 9:40 PM CDT 03/21/2024 9:48 PM CDT Won Paniagua DPM CHEMISTRY [facility] SENDOUT INTERNAL ZIP [id number] [place] [id number] * SEDIMENTATION RATE (03/20/2024 5:40 AM CDT) Pathologist [facility] SEDIMENTATION RATE 8 <15 mm/hr 2023 7:30 AM CDT [facility] Blood BLOOD SPECIMEN / Unknown Venipuncture / Unknown 03/20/2024 5:40 AM CDT 03/20/2024 6:24 AM CDT Won Paniagua DPTrena HEMATOLOGY Performing Organization Address City/[facility]/ZIP Co de Phone Number [facility] SENDOUT INTERNAL ZIP [id number] [place] [address] * C-REACTIVE PROTEIN (03/20/2024 5:40 AM CDT) Only the most recent of2 resultswithin the time period is included. C-REACTIVE PROTEIN <0.3 <0.5 mg/dL 03/20/2024 6:53 AM CDT [facility] Blood BLOOD SPECIMEN / Unknown Venipuncture / Unknown 03/20/2024 5:40 AM CDT 03/20/2024 6:24 AM CDT Cheikh Paige MD CHEMISTRY Performing Organization Address [facility] Co de Phone Number [facility] SENDOUT INTERNAL ZIP [address] [place] [phone] * HEMOGLOBIN A1C SCREENING (03/19/2024 4:12 PM CDT) HEMOGLOBIN A1C SCREENING 5.5 <=6.4 % 03/20/2024 7:05 AM CDT [facility] Blood BLOOD SPECIMEN / Unknown Butterfly / Unknown 03/19/2024 4:12 PM CDT 03/19/2024 4:28 PM CDT Narrative [facility] - 03/20/2024 7:05 AM CDT ? (<5.7%) ?Normal ? (5.7% to 6.4%) ? Indicates prediabetes ? (>=6.5%) ? Confirms diabetes Falsely low levels may be seen with: Recent Transfusion, Recent Significant Blood Loss, Hemolytic Diseases, or Falsely elevated levels may be seen with: Untreated Anemias, Splenectomy Kesha Hfes-Zcow-Wnuv Gil URBINA CHEMISTRY Performing Organization Address City/[facility]/ZIP Co de Phone Number [facility] SENDOUT [place] [address] [phone] [place] [address] * PLATELET COUNT (03/19/2024 4:12 PM CDT) PLATELET COUNT 226 140 - 440 thou/cu mm 03/19/2024 4:35 PM CDT [facility] MPV 9.3 6.5 - 11.0 fL 03/19/2024 4:35 PM CDT [facility] Blood BLOOD SPECIMEN / Unknown Butterfly / Unknown 03/19/2024 4:12 PM CDT 03/19/2024 4:28 PM CDT Won Paniagua DPM HEMATOLOGY Performing Organization Address City/[facility]/ZIP Co de Phone Number [facility] SENDOUT INTERNAL ZIP [address] [place] [phone] * (ABNORMAL) LIPID PANEL (03/19/2024 4:12 PM CDT) CHOLESTEROL,TOTAL 225(H) 100 - 199 mg/dL 03/19/2024 10:29 PM CDT [facility] Comment: Cholesterol, Total Reference Ranges Desirable <200 mg/dL Borderline 200-239 mg/dL High >=240 mg/dL TRIGLYCERIDES 291(H) <150 mg/dL 03/19/2024 10:29 PM CDT [facility] HDL CHOLESTEROL 31(L) >40 mg/dL 10:29 PM CDT [facility] NON-HDL CHOLESTEROL 194(H) <145 mg/dl 03/19/2024 10:29 PM CDT [facility] CHOL/HDL RATIO 7.26(H) <4.50 03/19/2024 10:29 PM CDT [facility] LDL CHOLESTEROL 136(H) <=130 mg/dL 03/19/2024 10:29 PM CDT [facility] VLDL CHOLESTEROL 58(H) <=30 mg/dL 03/19/2024 10:29 PM CDT [facility] Blood BLOOD SPECIMEN / Unknown Butterfly / Unknown 03/19/2024 4:12 PM CDT 03/19/2024 4:28 PM CDT Kesha Dapy-Bhvk-Lbzf Cordero DO CHEMISTRY [facility] SENDOUT INTERNAL ZIP [phone] [place] [address] * (ABNORMAL) BASIC METABOLIC PANEL (03/19/2024 4:12 PM CDT) SODIUM 141 136 - 145 mmol/L 03/19/2024 5:15 PM CDT [facility] POTASSIUM 4.2 3.5 - 5.1 mmol/L 03/19/2024 5:15 PM CDT [facility] CHLORIDE 105 98 - 107 mmol/L 03/19/2024 5:15 PM CDT [facility] CO2,TOTAL 24 22 - 29 mmol/L 03/19/2024 5:15 PM CDT [facility] ANION GAP 12 5 - 18 03/19/2024 5:15 PM CDT [facility] GLUCOSE 124(H) 70 - 99 mg/dL 03/19/2024 5:15 PM CDT [facility] CALCIUM 9.5 8.6 - 10.0 mg/dL 03/19/2024 5:15 PM CDT [facility] BUN 14 6 - 20 mg/dL 03/19/2024 5:15 PM CDT [facility] CREATININE 1.00 0.70 - 1.20 mg/dL 03/19/2024 5:15 PM T [facility] BUN/CREAT RATIO 14 10 - 20 5:15 PM CDT [facility] eGFR >90 >90 mL/min/1.7 3m2 03/19/2024 5:15 PM T [facility] Comment:As of 2021, eG FR is calculated by the CKD-EPI creatinine equation without race adjustment. ??eGFR can be influenced by muscle mass, exercise, and diet. ??The reported eGFR is an estimation only and is only applicable if the renal function is stable. Blood BLOOD SPECIMEN / Unknown Butterfly / Unknown 03/19/2024 4:12 PM CDT 03/19/2024 4:28 PM CDT Cheikh Paige MD CHEMISTRY [facility] SENDOUT [place] [address]IP [phone] [place] [address] * XR Ankle 3 Views Right Portable- Non-Weight Bearing (03/19/2024 9:07 AM CDT) Anatomical Region Laterality Modality ANKLES, ANKLE R Computed Radiogr aphy 03/19/2024 9:07 AM CDT Impressions 03/19/2024 9:13 AM CDT No fracture or dislocation. Screw fixation of the calcaneus with no evidence of hardware complication. Small fat and fixation along the plantar aspect of the calcaneus. Plantar calcaneal spur. Surgical beads are noted in the posterior soft tissues along the insertion of the calcaneus. Soft tissue swelling and thickening noted along the proximal Achilles tendon. Degenerative changes of the midfoot. Degenerative changes of the ankle. Narrative 03/19/2024 9:13 AM CDT For Patients: As a result of the Cures Act, medical imaging exams and procedure reports are released immediately into your electronic medical record. You may view this report before your referring provider. If you have questions, please contact your health care provider. EXAM: XR ANKLE 3 VIEWS RIGHT PORTABLE LOCATION: [facility] DATE: 03/19/2024 INDICATION: Pain COMPARISON: None. Procedure Note David Zhou MD - 03/19/2024 For Patients: As a result of the Cures Act, medical imagingexams and procedure reports are released immediately into your electronicmedical record. You may view this report before your referring provider.If you have questions, please contact your health care provider. EXAM: XR ANKLE 3 VIEWS RIGHT PORTABLE LOCATION: [facility] DATE: 03/19/2024 INDICATION: Pain COMPARISON: None. IMPRESSION: No fracture or dislocation. Screw fixation of the calcaneus with noevidence of hardware complication. Small fat and fixation along theplantar aspect of the calcaneus. Plantar calcaneal spur. Surgical beadsare noted in the posterior soft tissues along the insertion of thecalcaneus. Soft tissue swelling and thickening noted along the proximalAchilles tendon. Degenerative changes of the midfoot. Degenerative changesof the ankle. Won Paniagua DPM GENERAL IMAGING * FUNGUS CULT, OTHER SOURCE (03/19/2024 8:01 AM CDT) CULTURE No Fungus isolated. 04/17/2024 7:58 AM CDT [facility] Swab (Right ankle) Non-Blood / Unknown 03/19/2024 8:01 AM CDT 03/19/2024 8:37 AM CDT Won F Arcelia DPM MICROBIOLOGY [facility] [address] [place] [id number], * ETT (03/19/2024 7:47 AM CDT) Narrative Telly Chaudhari CRNA Student - 03/19/2024 7:47 AM CDT Telly Chaudhari CRNA Student ? 03/19/2024 ??7:47 AM Procedure: ETT Patient location during procedure: OR ETT Properties Mask Ventilation: easy and oral airway Final Technique: direct laryngoscopy Type: straight Location: oral Cuffed: yes Tube Size: 8.0 mm Stylet: yes Laryngoscope Blade: Yanez Blade Size: 3 Cormack-Lehane Grade View: 1 Insertion Attempts: 1 Placement Verification: auscultation, end tidal CO2 and symmetrical chest wall movement Assessment: pharynx clear, atraumatic and dentition unchanged Secured at: 24 Measured From: lips Tooth guard used and removed: yes Difficulty: 0 (not difficult) Nell Velazquez MD ANESTHESIA PX NOTE ORDERABLES * HCHG ANES BLOCK INJ PERIPH, HCHG ANES BLOCK INJ PERIPH (03/19/2024 7:26 AM CDT) Narrative Marcos Parry MD - 03/19/2024 7:26 AM CDT Marcos Parry MD ? 03/19/2024 ??7:27 AM Peripheral Block Patient location during procedure: pre-op Start time: 03/19/2024 7:20 AM End time: 03/19/2024 7:25 AM Reason for block: at surgeon's request and post-op pain PreProcedure Checklist Completed: patient identified, site marked, risks and benefits discussed, surgical consent, timeout performed and hand hygiene performed. Peripheral Block Patient position: supine Prep: chloraprep Patient monitoring: continuous pulse oximetry, ECG and blood pressure Supplemental O2: yes Neuro Status: mild sedation Block type: adductor canal, popliteal sciatic and lower extremity , regional analgesia techniques Lower extremity block type: adductor canal block of the femoral nerve and popliteal sciatic Injection technique: single injection Needle Needle type: Stimuplex ?? Needle Details: echogenic Needle gauge: 20 G Needle length: 4 in Unilateral needle localization (ultrasound): live ultrasound guidance, needle and nerve visualized, no pathologic findings, local anesthetic visualized surrounding nerve, nerve appears normal and permanent images obtained. Unilateral needle Localization (plane blocks): needle and expected nerve location visualized, local anesthetic visualized in anatomic plane and anatomic plane and expected location of nerve appears normal Events: no complications. Marcos Parry MD ANESTHESIA PX NOT E ORDERABLES * SCAN-CARDIAC STRIP (03/19/2024 12:00 AM CDT) Narrative 03/19/2024 12:00 AM CDT Ordered by an unspecified provider. Other Clinical Staff OTHER * SCAN-CARDIAC STRIP (03/19/2024 12:00 AM CDT) Narrative 03/19/2024 12:00 AM CDT Ordered by an unspecified provider. Other Clinical Staff OTHER * SCAN-MRI INTERPRETATION (03/10/2024 12:00 AM CDT) Only the most recent of2 resultswithin the time period is included. Anatomical Region Laterality Modality Other Scanner OTHER * PATH TISSUE EXAM (02/18/2024 2:01 PM CDT) Case Report Pathology Report ?Case: [id number] ? Authorizing Provider: ??Santa Petersen MD ?Collected: ? 02/18/2024 1401 ? Ordering Location: ? [facility] ?? Received: ?02/18/2024 1430 ? Clinic ? Pathologist: ? Kannan Reynolds MD ? Specimens: ?? A) - Right Vas Deferens ? B) - Left Vas Deferens ? 02/20/2024 10:30 AM CDT [facility] Final Diagnosis A) VAS DEFERENS, RIGHT, VASECTOMY: Complete luminal cross-section of vas deferens identified B) VAS DEFERENS, LEFT, VASECTOMY: Complete luminal cross-section of vas deferens identified 02/20/2024 10:30 AM T [facility] Clinical Information Sterilization 02/20/2024 10:30 AM T [facility] Gross Description A) Received [...] EVM 02/19/2024 ?? 02/20/2024 10:30 AM CDT [facility] Microscopic Description The final diagnosis is based on microscopic examination of appropriate sections of all specimens. 02/20/2024 10:30 AM CDT [facility] Additional Information Interpreted at [facility] - [address] [facility] [address], [place] [address] 02/20/2024 10:30 AM CDT [facility] Other (Right Vas Deferens) Non-Blood / Unknown 02/18/2024 2:01 PM CDT 02/18/2024 2:30 PM CDT Specimen (specimen) (Left Vas Deferens) Non-Blood / Unknown 02/18/2024 2:12 PM CDT 02/18/2024 2:30 PM CDT Santa Petersen MD PATHOLOGY/CYTOLOGY [facility] [address] [place] [address], * COLONOSCOPY (10/12/2022 8:09 AM MANAGING SUPERVISOR) 10/12/2022 8:09 AM MANAGING SUPERVISOR Narrative Transcriptions Nolan Alaniz MD - 10/12/2022 9:15 AM CST Patient Name: Charli Franklinaster Procedure Date: 10/12/2022 Gender: Male Date of [...] adequate candidate for conscious sedation. The endoscope [id number] was passed through the anus andadvanced to [...] physician intraservice time was 20 minutes. Nolan Alainz MD 10/12/2022 9:15:41 AM This report has been signed electronically. Note Initiated On: 10/12/2022 8:09 AM Procedure Code(s): --- Professional --- 94735, Colonoscopy, flexible; diagnostic, including collection of specimen(s) bybrushing or washing, when performed (separateprocedure) Diagnosis Code(s): --- Professional --- Z12.11, Encounter for screening formalignant neoplasm of colon CPT copyright 2020 [employer]. All rights reserved. The codes documented in this report are preliminary and upon information coder reviewmay be revised to meet current compliance requirements. Scope In: 8:53:06 AM Scope Withdrawal Time 0 hours 13 minutes 33 seconds Scope Out: 9:11:04 AM Nolan Alaniz MD PROCEDURE ORD from Last 3 Months or Most Recently Relevant to Health Maintenance Additional Health Concerns Infection Onset Date Last Indicated MRSA Comment:Order Contact Precautions. Nares surveillance cultures needed to clear patient if <12 months since positive culture. If >12 months since positive culture, precautions can be discontinued if patient has no MRSA risk factors. #1 +MRSA 03/11/24 ([facility], per chart notes) exclusions for contact precaution discontinuation (if > 12 months since positive culture): resides in acute/emt intermediate care, receiving hemodialysis, has chronic open wounds/skin damage, has long-term percutaneous indwelling medical devices Exclusions for nares collection (if <12 months since positive culture) include all of the previous exclusions plus patients on antibiotics 7 days prior to collection 03/18/2024 03/18/2024 Advance Directives * Full Code (Latest Code Status on File) Date Activated Date Inactivated Comments 03/19/2024 6:59 AM 03/23/2024 3:07 PM Question Answer Comments Code Status Discussion: Reviewed Preferences Care Teams Sales Analytics Manager Relationship Specialty Start Date End Date Fam Lewis DO [address] [place] [address] PCP - General Family Practice 10/16/22
[2024-04-28 02:58] VITALS: BP 160/98; PULSE 85; RESP 16; TEMP 37; O2SAT 95; BMI 31.6
--- NOTE | 2024-04-28 03:15 | CRLHL7_ITS ---
For Patients: As a result of the Century Cures Act, medical imaging exams and procedure reports are released immediately into your electronic medical record. You may view this report before your referring provider. If you have questions, please contact your health care provider. Indication: Discoloration, increased swelling Technique: Three views of the right foot Comparison: Right foot MRI performed 03/10/2024, right foot radiographs performed 12/06/2023 Findings/Impression: Internal fixation hardware with no acute radiographic abnormality appreciated. Dictated by Dave Parikh MD @ 04/28/2024 3:52:23 AM (Electronically Signed)
--- NOTE | 2024-04-28 03:20 | ED.GENADULT ---
HPI - General Adult General Chief complaint: Post Op Complication Stated complaint: poss blood clot in right leg Time Seen by Provider: 04/28/24 03:15 Source: patient Mode of arrival: ambulatory Limitations: no limitations History of Present Illness HPI narrative: Patient is a 48-year-old male presenting to the emergency department for multiple complaints. His days concern is he has a right has another blood clot of his right leg. States he has had quite a few ankle surgeries over the past year and has had a previous blood clot which is of Eliquis for that he has just stopped taking about 3 weeks ago. He states he had some ankle swelling today which he has had before on related to the DVT and the swelling since gone away but then he noticed the dorsal aspect of his 2nd toe became red in appearance along with the lateral dorsal aspect of the right great toe. There is a blister on the medial aspect of the great toe but he states that is from issue. Also states he dropped his phone on those 2 toes this morning. States the toes have a tingling sensation to them. No associated pain at this time. States he last saw his foreign languages department chair 5 days ago to have sutures removed and just noticed these toe abnormalities this evening. Also states he had some scrotal discomfort any felt like there was a small mass within his scrotum that is mildly tender. No other concerns noted. Denies dysuria, fevers, chills, chest pain, shortness of breath, abdominal pain, lightheadedness, dizziness. Related Data Home Medications ?Medication ?Instructions ?Recorded ?Confirmed apixaban 5 mg tablet (Eliquis) 5 mg PO BID 12/17/23 03/13/24 Allergies Allergy/AdvReac Type Severity Reaction Status Date / Time No Known Drug Allergies Allergy Verified 03/13/24 08:08 [facility] Social History Smoking Status: Former smoker Do you use any of these nicotine containing products: None Second hand tobacco smoke exposure: No How often do you have a drink containing alcohol: monthly or less How often do you have six or more drinks on one occasion: Never AUDIT-C Alcohol total score: 1 Non-prescribed substance use: denies use Caffeine: Yes (coffee daily) Exam Narrative: Exam Narrative: Const: Well-nourished, Well-developed, in mild distress Eyes: PERRL, no conjunctival injection, and symmetrical lids HENT: Atraumatic external nose and ears. Moist mucous membranes. CVS: RRR, No murmurs or gallops. Peripheral pulses 2+ and equal in all extremities RESP: Unlabored respiratory effort. Clear to auscultation bilaterally. MSK:Extremities w/o deformity, Normal Active ROM Skin: Redness seen to dorsal aspect of the 2nd toe on the right foot along with the lateral dorsal aspect of the great toe on the same foot. Plantar aspect looks normal Neuro: Normal Muscle tone, No focal neurological deficits. Psych: Awake, Alert, & Oriented x3. Very anxious Const: Vital Signs, click to edit/add: Vital Signs - 24 hr 04/28/24 02:58 04/28/24 04:54 Temperature 98.6 F 98.3 F Pulse Rate [Pulse Oximeter] 85 75 Respiratory Rate 16 16 Blood Pressure [Ri ght Upper Arm] 160/98 H 146/98 H Pulse Oximetry 95 94 Oxygen Delivery Me thod Room Air Room Air Course Vital Signs Vital signs: Initial Vital Signs Temperature 98.6 F 04/28/24 02:58 Temperature Source Temporal Artery Scan 04/28/24 02:58 Pulse Rate 85 04/28/24 02:58 Respiratory Rate 16 04/28/24 02:58 Blood Pressure 160/98 H 04/28/24 02:58 Blood Pressure Mean 118 H 04/28/24 02:58 Blood Pressure Position Sitting 04/28/24 02:58 Pulse Oximetry 95 04/28/24 02:58 Oxygen Delivery Method Room Air 04/28/24 02:58 Vital Signs Temperature 98.6 F 04/28/24 02:58 Pulse Rate 85 04/28/24 02:58 Respiratory Rate 16 04/28/24 02:58 Blood Pressure 160/98 H 04/28/24 02:58 Pulse Oximetry 95 04/28/24 02:58 Oxygen Delivery Method Room Air 04/28/24 02:58 Temperature 98.3 F 04/28/24 04:54 Pulse Rate 75 04/28/24 04:54 Respiratory Rate 16 04/28/24 04:54 Blood Pressure 146/98 H 04/28/24 04:54 Pulse Oximetry 94 04/28/24 04:54 Oxygen Delivery Method Room Air 04/28/24 04:54 Medical Decision Making MDM Narrative Medical decision making narrative: Patient is a 48-year-old male presenting to the emergency department for 2 separate complaints. He is concerned about possibly developing a blood clot based on some discoloration noted to the dorsal aspect of his 1st and 2nd toes. He is also concerned about a lump within the scrotum. Will do an ultrasound the scrotum and ultrasound the lower extremity for signs of a DVT. Of note these were delayed as ultrasound is not arrive until 06:30. Will also do an x-ray of the foot as he did drop his phone right on the toes that are now discolored. X-ray returned showing no concerning abnormalities. Preliminary results on the ultrasound showed no concerning findings. There is no signs of a blood clot in the area of concern in his scrotum appears to be at the spermatic cord. Considering the discoloration just on the dorsal aspect I am not concerned about ischemia to the tall. Most likely this is more bruising from the phone falling on his toe. He is not having any pain currently and I believe he is safe to follow-up outpatient with his foreign languages department chair. Rest still waiting on the results of the DVT official read and will call him with results if there is any concerning findings. Imaging Data X-ray right foot: Attestation: I have reviewed the pertinent imaging results. Radiologist's impression: Internal fixation hardware with no acute radiographic abnormality appreciated. Dictated by Dave Parikh MD @ 04/28/2024 3:52:23 AM Testicular ultrasound: Radiologist's impression: 1. Incidental small right testicular tunica albuginea cyst measuring 9 millimeters in greatest dimension. No additional masses identified on either side. 2. Normal Doppler. No evidence of torsion. No hyperemia to suggest an acute inflammatory process. 3. Small bilateral varicoceles. 4. No hydrocele. Dictated by Valente Mckenzie MD @ 04/28/2024 7:47:22 AM Discharge Plan Discharge Clinical Impression: Contusion Qualifiers: Encounter type: initial encounter Contusion area: toe Toe: unspecified toe Damage to nail status: without damage Laterality: unspecified laterality Qualified Code(s): S90.129A - Contusion of unspecified lesser toe(s) without damage to nail, initial encounter Patient Disposition: Home, Self-Care Condition: Stable Instructions: Foot Contusion (ED) Additional Instructions: Tried a follow-up with the foreign languages department chair this week for what I believe is a contusion to your toe to make sure there is not any other abnormalities. Return to emergency department for new or worsening symptoms. Will call you with the DVT ultrasound shows any concerning findings. Preliminary read is normal Prescriptions: No Action Eliquis 5 mg tablet 5 mg PO BID Follow Up/Referrals: PO WHITE DO [Primary Care Provider] - Stand Alone Forms: [employer] Info Instructions
--- OUTSIDE RECORDS SUMMARY | 2024-04-28 03:22 | XMS_ITS | Clinical Summary ---
Author Organization [email or web address] [facility] Address [place], [place] [address] Care Team Providers Care Boss Miner Name Role Phone Fam Lewis DO Primary Care Provider [phone] Allergies No known active allergies Medications Medication Sig Dispensed Refills Start Date End Date Status durable medical equipment (DME)Indications:S/ P orthopedic surgery, follow-up exam 01EF-XL Airselect, Standard, XLarge 1 Each 10/24/2023 Active durable medical equipment (DME)Indications:S/ P orthopedic surgery, follow-up exam [id number] Achilles Wedge 1 Each 10/24/2023 Active durable medical equipment (DME)Indications:Ca lcific Achilles tendonitis 01EF-L Airselect, Standard, Large 1 Each 12/05/2023 Active durable medical equipment (DME)Indications:Ac hilles tendon rupture, right, initial encounter,Follow-up examination after orthopedic surgery ACHILLES WEDGE, REF: [id number] 01/02/2024 Active cadexomer iodine (Iodosorb) 0.9 % [...] Description 04/23/2024 3:30 PM CDT Office Visit [facility] [address] [place] [address] Vincent Dejesus DPTrena Post-op (Right achilles, DOS 03/22/24, 4 week post op) 04/23/2024 Travel 04/23/2024 Telephone [facility] [address] [place] [address] Santa Petersen MD Testing (Needs repeat US scrotum ) 04/16/2024 3:15 PM CDT Office Visit [facility] [address] [place] [address] Vincent Dejesus, DPM Post-op (Right achilles, DOS 03/22/24, 3 weeks post op) 04/16/2024 Travel 04/10/2024 Telephone [facility] [address] [place] [address] Vincent Dejesus DPM Appointment 04/10/2024 Travel 04/02/2024 3:15 PM CDT Office Visit [facility] [address] [place] [address] Vincent Dejesus, DPM Post-op (Right achilles post op , DOS 03/22/24/Left plantar great toe callus) 04/02/2024 Travel 03/28/2024 2:00 PM CDT Office Visit [facility] [address] [place] [address] Won Paniagua DPM Post-op (Right ankle- achilles) 03/27/2024 2:30 PM CDT Office Visit [facility] [address] [place] [address] Aram Rangel MD Hospital F/U (03/19/24, Perry, rt ankle infection) 03/27/2024 Travel 03/24/2024 Patient Outreach [facility] [address] [place] [address] Catrina Kraft, RN Primary RN Care Management; Hospital F/U (LACE 45) 03/22/2024 8:07 AM CDT Anesthesia Event [address] [address] Lurdes Patino MD 03/22/2024 7:20 AM CDT - 03/22/2024 8:36 AM CDT Surgery [address] [address] José Miguel Fernández, DPTrena REPEAT IRRIGATION AND DEBRIDEMENT OF RIGHT HEEL WITH ANTIBIOTIC BEAD REMOVAL AND WOUND CLOSURE 03/19/2024 7:25 AM CDT Anesthesia Event [address] [address] Kaleigh Vang CRNA Hottinger, Daniel George, MD 03/19/2024 7:20 AM CDT - 03/19/2024 8:54 AM CDT Surgery [address] [address] Won Paniagua DPM Irrigation and Debridement of the achilles tendon right ankle 03/19/2024 5:44 AM CDT - 03/23/2024 12:00 PM CDT Hospital Encounter [address] [address] Won Paniagua DPM Kaley Moss NP Chung, Uyen Yyfw-Gjhi-Ziei, DO Infection (Primary Dx); Achilles tendon infection; Mixed hyperlipidemia; S/P foot surgery, right Discharge Disposition: Home Self Care 03/19/2024 Travel 03/18/2024 10:00 AM CDT Preop Visit [facility] [address] [place] [address] Nieves Paz PA Preoperative Exam (03/19/2024) 03/18/2024 Travel 03/17/2024 Telephone [facility] [address] [address] [address] Nieves Paz PA Medication Management 03/14/2024 1:00 PM CDT Office Visit [facility] [address] [place] [address] Won Paniagua, MARY Foot Problem (right achilles and right foot) 03/14/2024 Travel 03/11/2024 4:30 PM CDT Office Visit [facility] [address] [place] [address] Vincent Dejesus DPM Follow Up (Right achilles, wound dehiscence ) 03/11/2024 Travel 03/10/2024 Orders Only [facility] Scanner 1 scan: (1-Ord) [facility], MR ANKLE RT WO/W, 03/10/2024 03/10/2024 Orders Only [facility] Scanner 1 scan: (1-Ord) [place], RIGHT FOOT, 03/10/2024 02/28/2024 3:30 PM CDT Office Visit [facility] [address] [facility] [address] [facility] [place] [address] Vincent Dejesus DPM Post-op (Right achilles-wound dehiscence); Ulcer (Follow up-left foot) 02/28/2024 Travel 02/22/2024 8:15 AM CDT Nurse/Clinic Staff Only [facility] [address] [place] [address] Immunization/Inject ion (Rocephin 1 gram ) 02/22/2024 Travel 02/21/2024 1:00 PM CDT Nurse/Clinic Staff Only [facility] [address] [place] [address] Immunization/Inject ion (Rocephin #2/) 02/21/2024 Telephone [facility] [address] [place] [address] Vincent Dejesus DPM Appointment 02/20/2024 4:00 PM CDT Office Visit [facility] [address] [place] [address] Vincent Dejesus DPM Post-op (Right achilles-wound dehiscence); Ulcer (Follow up-left foot) 02/20/2024 Travel 02/18/2024 1:45 PM CDT Procedure Only [facility] [address] [place] [address] Santa Petersen MD Vasectomy 02/18/2024 Travel 02/12/2024 11:30 AM CDT Office Visit [facility] [address] [place] [address] Vincent Dejesus DPTrena Follow Up (Right achilles tendon) 02/12/2024 Travel 02/12/2024 Telephone [facility] [address] [place] [address] Vincent Dejesus DPM [employer]raft 01/30/2024 1:15 PM CDT Office Visit [facility] [address] [place] [address] Vincent Dejesus DPTrena Follow Up (Right 6 week post op, /Left ulcer ) 01/30/2024 Travel 01/28/2024 2:00 PM CDT Procedure Only [facility] [address] [place] [address] Santa Petersen MD Vasectomy 01/28/2024 Travel from Last 3 Months Immunizations Name Administration Dates Next Due COVID-19 vaccine ([employer] 30mcg/0.3mL) 12YO+ BIVALENT PF, MDV 07/11/2022 [...] Description 06/04/2024 3:45 PM CDT Office Visit [facility] [address] [place] [address] Vincent Dejesus DPM [address] [place] [address] Health Maintenance Due Date Last Done Comments [...] this topic Medical Devices Implanted Type Area Manager State Device Identifier Shelf Expiration Date Model / Serial / Lot Graft Bone 5ml Cerament G W/Gentamicin - [id number] Implanted:Qty: 1 on 03/19/2024 by Won Paniagua DPM at [facility] Right: Ankle [employer] 06/11/2026 [id number] / / [id number] Procedures Procedure Name Priority Date/Time Associated Diagnosis [...] vasectomy COLONOSCOPY SCREENING Routine 10/12/2022 8:08 AM NUT SIFTER Screening for colon cancer from Last 3 Months or Most Recently Relevant to Health Maintenance Results * (ABNORMAL) CBC WITH AUTO DIFFERENTIAL (03/27/2024 3:30 PM CDT) Only the most recent of2 resultswithin the time period is included. WHITE BLOOD COUNT 8.3 4.5 - 11.0 thou/cu mm 03/27/2024 3:36 PM CDT [facility] RED BLOOD COUNT 5.14 4.30 - 5.90 mil/cu mm 03/27/2024 3:36 PM CDT [facility] HEMOGLOBIN 15.4 13.5 - 17.5 g/dL 03/27/2024 3:36 PM CDT [facility] HEMATOCRIT 43.2 37.0 - 53.0 % 03/27/2024 3:36 PM CDT [facility] MCV 84 80 - 100 fL 03/27/2024 3:36 PM CDT [facility] MCH 30.0 26.0 - 34.0 pg 03/27/2024 3:36 PM CDT [facility] MCHC 35.6 32.0 - 36.0 g/dL 03/27/2024 3:36 PM CDT [facility] RDW 13.3 11.5 - 15.5 % 03/27/2024 3:36 PM CDT [facility] PLATELET COUNT 249 140 - 440 thou/cu mm 03/27/2024 3:36 PM CDT [facility] MPV 9.2 6.5 - 11.0 fL 03/27/2024 3:36 PM CDT [facility] % NEUT 55.0 % 03/27/2024 3:36 PM CDT [facility] % LYMPH 31.0 % 03/27/2024 3:36 PM CDT [facility] % MONO 8.0 % 03/27/2024 3:36 PM CDT [facility] % EOS 5.5 % 03/27/2024 3:36 PM CDT [facility] % BASO 0.5 % 03/27/2024 3:36 PM CDT [facility] ABSOLUTE NEUTROPHILS 4.6 1.7 - 7.0 thou/cu mm 03/27/2024 3:36 PM CDT [facility] ABSOLUTE LYMPHOCYTES 2.6 0.9 - 2.9 thou/cu mm 03/27/2024 3:36 PM CDT [facility] ABSOLUTE MONOCYTES 0.7 <0.9 thou/cu mm 03/27/2024 3:36 PM CDT [facility] ABSOLUTE EOSINOPHILS 0.5(H) <0.5 thou/cu mm 03/27/2024 3:36 PM CDT [facility] ABSOLUTE BASOPHILS 0.0 <0.3 thou/cu mm 03/27/2024 3:36 PM CDT [facility] Blood BLOOD SPECIMEN / Unknown Venipuncture / Unknown 03/27/2024 3:30 PM CDT 03/27/2024 3:32 PM CDT Aram Rangel MD HEMATOLOGY [facility] [address] [place] [address], * (ABNORMAL) COMP METABOLIC PANEL (03/27/2024 3:30 PM CDT) SODIUM 139 136 - 145 mmol/L 03/27/2024 11:05 PM CDT [facility]AL LABORATORY POTASSIUM 4.4 3.5 - 5.1 mmol/L 03/27/2024 11:05 PM [facility] TRAL LABORATORY CHLORIDE 104 98 - 107 mmol/L 03/27/2024 11:05 PM [facility] TRAL LAB[facility] CO2,TOTAL 22 22 - 29 mmol/L 03/27/2024 11:05 PM [facility] TRAL LABORATORY ANION GAP 13 5 - 18 03/27/2024 11:05 PM [facility] TRAL LAB[facility]ORY GLUCOSE 100(H) 70 - 99 mg/dL 03/27/2024 11:05 PM [facility] TRAL LABORATORY CALCIUM 9.6 8.6 - 10.0 mg/dL 03/27/2024 11:05 PM [facility] TRAL LABORATORY BUN 21(H) 6 - 20 mg/dL 03/27/2024 11:05 PM [facility] TRAL LABORATORY CREATININE 1.22(H) 0.70 - 1.20 mg/dL 03/27/2024 11:05 PM [facility] TRAL LABORATORY BUN/CREAT RATIO 17 10 - 20 11:05 PM [facility] TRAL LABORATORY eGFR 73(L) >90 mL/min/1.7 3m2 03/27/2024 11:05 PM [facility] TRAL LABORATORY Comment:As of 2021, eG FR is calculated by the CKD-EPI creatinine equation without race adjustment. ??eGFR can be influenced by muscle mass, exercise, and diet. ??The reported eGFR is an estimation only and is only applicable if the renal function is stable. ALBUMIN 4.6 4.0 - 4.9 g/dL 03/27/2024 11:05 PM [facility] TRAL LABORATORY PROTEIN,TOTAL 7.4 6.0 - 8.0 g/dL 03/27/2024 11:05 PM [facility] TRAL LABORATORY BILIRUBIN,TOTAL 0.2 0.0 - 1.2 mg/dL 03/27/2024 11:05 PM [facility] TRAL LABORATORY ALK PHOSPHATASE 74 40 - 129 IU/L 03/27/2024 11:05 PM CDT [facility] TRA LABORATORY ALT (SGPT) 86(H) 10 - 50 IU/L 03/27/2024 11:05 PM CDT [facility] AST (SGOT) 47 10 - 50 IU/L 03/27/2024 11:05 PM CDT [facility] Blood BLOOD SPECIMEN / Unknown Venipuncture / Unknown 03/27/2024 3:30 PM CDT 03/27/2024 3:32 PM CDT Aram Rangel MD CHEMISTRY [facility] [address] [place] [address], * (ABNORMAL) CBC W PLT NO DIFF (03/23/2024 8:19 AM CDT) WHITE BLOOD COUNT 14.1(H) 4.5 - 11.0 thou/cu mm 03/23/2024 8:37 AM [facility] RED BLOOD COUNT 4.91 4.30 - 5.90 mil/cu mm 03/23/2024 8:37 AM [facility] HEMOGLOBIN 14.6 13.5 - 17.5 g/dL 03/23/2024 8:37 AM [facility] HEMATOCRIT 41.0 37.0 - 53.0 % 03/23/2024 8:37 AM [facility] MCV 84 80 - 100 fL 03/23/2024 8:37 AM [facility] MCH 29.7 26.0 - 34.0 pg 03/23/2024 8:37 AM [facility] MCHC 35.6 32.0 - 36.0 g/dL 03/23/2024 8:37 AM [facility] RDW 12.4 11.5 - 15.5 % 03/23/2024 8:37 AM [facility] PLATELET COUNT 231 140 - 440 thou/cu mm 03/23/2024 8:37 AM [facility] MPV 9.1 6.5 - 11.0 fL 03/23/2024 8:37 AM [facility] NRBC 0.0 % 03/23/2024 8:37 AM CDT [facility] ABS NRBC 0.0 thou /cu mm 03/23/2024 8:37 AM CDT [facility] Blood BLOOD SPECIMEN / Unknown Butterfly / Unknown 03/23/2024 8:19 AM CDT 03/23/2024 8:34 AM CDT Kesha BiswasKafo-Hcep-Lyin Gil URBINA HEMATOLOGY Performing Organization Address City/[facility]/ZIP Co de Phone Number [facility] SENDOUT INTERNAL ZIP [phone] [place] [phone] * CREATININE (03/23/2024 8:19 AM CDT) Only the most recent of4 resultswithin the time period is included. eGFR >90 >90 mL/min/1.7 3m2 03/23/2024 8:55 AM CDT [facility] Comment:As of 2021, eG FR is calculated by the CKD-EPI creatinine equation without race adjustment. ??eGFR can be influenced by muscle mass, exercise, and diet. ??The reported eGFR is an estimation only and is only applicable if the renal function is stable. CREATININE 0.82 0.70 - 1.20 mg/dL 03/23/2024 8:55 AM CDT [facility] Blood BLOOD SPECIMEN / Unknown Butterfly / Unknown 03/23/2024 8:19 AM CDT 03/23/2024 8:33 AM CDT Cheikh Paige MD CHEMISTRY [facility] SENDOUT [place]NAL ZIP [address] [address] [place] [address] * HCHG ANES BLOCK INJ PERIPH (03/22/2024 [...] CULTURE No Growth. 03/25/2024 10:46 AM CDT [facility] GRAM STAIN No Epithelial cells 03/25/2024 10:46 AM CDT [facility] GRAM STAIN 4+ RBCs 03/25/2024 10:46 AM CDT [facility] GRAM STAIN No organisms seen 03/25/2024 10:46 AM CDT [facility] GRAM STAIN 1+ WBC 03/25/2024 10:46 AM CDT [facility] GRAM STAIN Gram stain performed by [place], [place] 03/25/2024 10:46 AM CDT [facility] Swab (Right foot) Non-Blood / Unknown 03/22/2024 8:52 AM CDT 03/22/2024 9:47 AM CDT José Miguel Fernández DPM MICROBIOLOGY [facility] [address] LABORATORY SENDOUT INTERNAL ZIP [phone] [place] [address] * ANAEROBIC CULTURE (03/22/2024 8:52 AM CDT) Only the most recent of2 resultswithin the time period is included. CULTURE No anaerobes isolated 03/28/2024 11:16 AM CDT [facility] Swab (Right foot) Non-Blood / Unknown 03/22/2024 8:52 AM CDT 03/22/2024 9:47 AM CDT José Miguel Fernández DPM MICROBIOLOGY [facility] [address] [place] [address], * HCHG MASK PR5 (03/22/2024 8:29 AM [...] - 20.0 ug/mL 03/21/2024 10:14 PM CDT [facility] DATE OF LAST DOSE,TROUGH Not Given 03/21/2024 10:14 PM CDT [facility] TIME OF LAST DOSE,TROUGH Not Given 03/21/2024 10:14 PM CDT [facility] Blood BLOOD SPECIMEN / Unknown Non-Lab Venipuncture / Unknown 03/21/2024 9:40 PM CDT 03/21/2024 9:48 PM CDT Won Paniagua DPM CHEMISTRY [facility] SENDOUT INTERNAL ZIP [phone] [place] [address] * SEDIMENTATION RATE (03/20/2024 5:40 AM CDT) Pathologist [facility] SEDIMENTATION RATE 8 <15 mm/hr 2023 7:30 AM CDT [facility] Blood BLOOD SPECIMEN / Unknown Venipuncture / Unknown 03/20/2024 5:40 AM CDT 03/20/2024 6:24 AM CDT Won Paniagua DPTrena HEMATOLOGY Performing Organization Address City/[facility]/ZIP Co de Phone Number [facility] SENDOUT INTERNAL ZIP [phone] [place] [address] * C-REACTIVE PROTEIN (03/20/2024 5:40 AM CDT) Only the most recent of2 resultswithin the time period is included. C-REACTIVE PROTEIN <0.3 <0.5 mg/dL 03/20/2024 6:53 AM CDT [facility] Blood BLOOD SPECIMEN / Unknown Venipuncture / Unknown 03/20/2024 5:40 AM CDT 03/20/2024 6:24 AM CDT Cheikh Paige MD CHEMISTRY Performing Organization Address [facility] Co de Phone Number [facility] SENDOUT INTERNAL ZIP [phone] [place] [address] * HEMOGLOBIN A1C SCREENING (03/19/2024 4:12 PM CDT) HEMOGLOBIN A1C SCREENING 5.5 <=6.4 % 03/20/2024 7:05 AM CDT [facility] Blood BLOOD SPECIMEN / Unknown Butterfly / Unknown 03/19/2024 4:12 PM CDT 03/19/2024 4:28 PM CDT Narrative [facility] - 03/20/2024 7:05 AM CDT ? (<5.7%) ?Normal ? (5.7% to 6.4%) ? Indicates prediabetes ? (>=6.5%) ? Confirms diabetes Falsely low levels may be seen with: Recent Transfusion, Recent Significant Blood Loss, Hemolytic Diseases, or Falsely elevated levels may be seen with: Untreated Anemias, Splenectomy Kesha Zzzk-Txui-Xrsv Gil [facility]RB[facility] CHEMISTRY Performing Organization Address City/[facility]/ZIP Co de Phone Number [facility] SENDOUT INTERNAL ZIP [phone] [place] [address] * PLATELET COUNT (03/19/2024 4:12 PM CDT) PLATELET COUNT 226 140 - 440 thou/cu mm 03/19/2024 4:35 PM CDT [facility] MPV 9.3 6.5 - 11.0 fL 03/19/2024 4:35 PM CDT [facility] Blood BLOOD SPECIMEN / Unknown Butterfly / Unknown 03/19/2024 4:12 PM CDT 03/19/2024 4:28 PM CDT Won Paniagua DPM HEMATOLOGY Performing Organization Address City/[facility]/ZIP Co de Phone Number [facility] SENDOUT INTERNAL ZIP [phone] [place] [phone] * (ABNORMAL) LIPID PANEL (03/19/2024 4:12 PM CDT) CHOLESTEROL,TOTAL 225(H) 100 - 199 mg/dL 03/19/2024 10:29 PM CDT [facility] Comment: Cholesterol, Total Reference Ranges Desirable <200 mg/dL Borderline 200-239 mg/dL High >=240 mg/dL TRIGLYCERIDES 291(H) <150 mg/dL 03/19/2024 10:29 PM CDT [facility] HDL CHOLESTEROL 31(L) >40 mg/dL 10:29 PM CDT [facility] NON-HDL CHOLESTEROL 194(H) <145 mg/dl 03/19/2024 10:29 PM CDT [facility] CHOL/HDL RATIO 7.26(H) <4.50 03/19/2024 10:29 PM CDT [facility] LDL CHOLESTEROL 136(H) <=130 mg/dL 03/19/2024 10:29 PM CDT [facility] VLDL CHOLESTEROL 58(H) <=30 mg/dL 03/19/2024 10:29 PM CDT [facility] Blood BLOOD SPECIMEN / Unknown Butterfly / Unknown 03/19/2024 4:12 PM CDT 03/19/2024 4:28 PM CDT Kesha Jceq-Zjrr-Qyms Cordero DO CHEMISTRY [facility] SENDOUT INTERNAL ZIP [phone] [place] [address] * (ABNORMAL) BASIC METABOLIC PANEL (03/19/2024 4:12 PM CDT) SODIUM 141 136 - 145 mmol/L 03/19/2024 5:15 PM CDT [facility] POTASSIUM 4.2 3.5 - 5.1 mmol/L 03/19/2024 5:15 PM CDT [facility] CHLORIDE 105 98 - 107 mmol/L 03/19/2024 5:15 PM CDT [facility] CO2,TOTAL 24 22 - 29 mmol/L 03/19/2024 5:15 PM CDT [facility] ANION GAP 12 5 - 18 03/19/2024 5:15 PM CDT [facility] GLUCOSE 124(H) 70 - 99 mg/dL 03/19/2024 5:15 PM CDT [facility] CALCIUM 9.5 8.6 - 10.0 mg/dL 03/19/2024 5:15 PM CDT [facility] BUN 14 6 - 20 mg/dL 03/19/2024 5:15 PM CDT [facility] CREATININE 1.00 0.70 - 1.20 mg/dL 03/19/2024 5:15 PM T [facility] BUN/CREAT RATIO 14 10 - 20 5:15 PM CDT [facility] eGFR >90 >90 mL/min/1.7 3m2 03/19/2024 5:15 PM T [facility] Comment:As of 2021, eG FR is calculated by the CKD-EPI creatinine equation without race adjustment. ??eGFR can be influenced by muscle mass, exercise, and diet. ??The reported eGFR is an estimation only and is only applicable if the renal function is stable. Blood BLOOD SPECIMEN / Unknown Butterfly / Unknown 03/19/2024 4:12 PM CDT 03/19/2024 4:28 PM CDT Cheikh Paige MD CHEMISTRY [facility] SENDOUT INTERNAL ZIP [phone] [place] [address] * XR Ankle 3 Views Right Portable- [...] XR ANKLE 3 VIEWS RIGHT PORTABLE LOCATION: [facility] DATE: 03/19/2024 INDICATION: Pain COMPARISON: [...] No Fungus isolated. 04/17/2024 7:58 AM CDT [facility] Swab (Right ankle) Non-Blood / Unknown 03/19/2024 8:01 AM CDT 03/19/2024 8:37 AM CDT Won F Arcelia DPM MICROBIOLOGY [facility]-C[facility]AL LABORATORY [address] [place] [id number], * ETT (03/19/2024 7:47 AM CDT) Narrative [...] PM CDT) Case Report Pathology Report ?Case: [id number] ? Authorizing Provider: ??Santa Petersen MD ?Collected: ? 02/18/2024 1401 ? Ordering Location: ? [facility] ?? Received: ?02/18/2024 1430 ? Clinic ? Pathologist: ? Kannan Reynolds MD ? Specimens: ?? A) - Right Vas Deferens ? B) - Left Vas Deferens ? 02/20/2024 10:30 AM CDT [facility]-C ENTRAL LABORATORY Final Diagnosis A) VAS DEFERENS, RIGHT, VASECTOMY: Complete luminal cross-section of vas deferens identified B) VAS DEFERENS, LEFT, VASECTOMY: Complete luminal cross-section of vas deferens identified 02/20/2024 10:30 AM T [facility] Clinical Information Sterilization 02/20/2024 10:30 AM T [facility] Gross Description A) Received [...] EVM 02/19/2024 ?? 02/20/2024 10:30 AM CDT [facility]- ENTRAL LABORATORY Microscopic Description The final diagnosis is based on microscopic examination of appropriate sections of all specimens. 02/20/2024 10:30 AM CDT [facility]- ENTRAL LABORATORY Additional Information Interpreted at [facility] - [address] [facility] [address], [place] [address] 02/20/2024 10:30 AM CDT [facility]- ENTRAL LAB[facility]AT[facility] Other (Right Vas Deferens) Non-Blood / Unknown 02/18/2024 2:01 PM CDT 02/18/2024 2:30 PM CDT Specimen (specimen) (Left Vas Deferens) Non-Blood / Unknown 02/18/2024 2:12 PM CDT 02/18/2024 2:30 PM CDT Santa Petersen MD PATHOLOGY/CYTOLOGY [facility] [address] [place] [address], * COLONOSCOPY (10/12/2022 8:09 AM NUT SIFTER) 10/12/2022 8:09 AM NUT SIFTER Narrative Transcriptions Nolan Alaniz MD - 10/12/2022 [...] adequate candidate for conscious sedation. The endoscope [id number] was passed through the anus andadvanced to [...] 8:09 AM Procedure Code(s): --- Professional --- 09335, Colonoscopy, flexible; diagnostic, including collection of specimen(s) bybrushing or washing, when performed (separateprocedure) Diagnosis Code(s): --- Professional --- Z12.11, Encounter for screening formalignant neoplasm of colon CPT copyright 2020 [employer]. All rights reserved. The codes documented in this report are preliminary and upon maker up folding reviewmay be revised to meet current compliance [...] no MRSA risk factors. #1 +MRSA 03/11/24 ([facility], per chart notes) exclusions for contact precaution discontinuation (if > 12 months since positive culture): resides in acute/exterminator care, receiving hemodialysis, has chronic open wounds/skin [...] Code Status Discussion: Reviewed Preferences Care Teams Boss Miner Relationship Specialty Start Date End Date Fam Lewis DO [address] [place] [address] PCP - General Family Practice 10/16/22
--- NOTE | 2024-04-28 04:45 | US_ITS ---
Patient: JENAE PAN Facility:?[facility] Patient ID:?[id number] Site Patient ID:?[id number]. Site :?[id number] Study:?US-Right Tesicular-04/28/2024 7:42:38 AM Ordering Physician:Jas Castaneda Final Report: Indication: Palpable abnormality of the left hemiscrotum Technique: Sonography of the scrotum and its contents was performed. Grayscale and Doppler imaging was acquired. Comparison: None Findings: Right side: Testis 5.8 x 2.0 x 3.0 centimeters. Normal echogenicity. No solid mass. There is a small tunica albuginea cyst associated with the right testis measuring 7.9 x 4.2 x 5.6 millimeters. Normal blood flow on the right. Small varicocele. No hydrocele. Left side: Testis 5.7 x 2.6 x 3.1 centimeters. Normal echogenicity. No solid mass. Normal blood flow. Small varicocele. No hydrocele. Scrotal skin thickness is normal Impression: 1. Incidental small right testicular tunica albuginea cyst measuring 9 millimeters in greatest dimension. No additional masses identified on either side. 2. Normal Doppler. No evidence of torsion. No hyperemia to suggest an acute inflammatory process. 3. Small bilateral varicoceles. 4. No hydrocele. Dictated by Valente Mckenzie MD @ 04/28/2024 7:47:22 AM Signed by:?Valente Mckenzie MD @04/28/2024 7:47:22 AM (Electronic Signature)
--- NOTE | 2024-04-28 04:46 | CRLHL7_ITS ---
Patient: JENAE PAN Facility:?[facility] Patient ID:?[id number] Site Patient ID:?[id number] Site :?[id number] Study:?US-Extremity Right venous-04/28/2024 8:48:26 AM Ordering Physician:Jas Final Report: INDICATION: Leg pain and swelling TECHNIQUE: Ultrasound venous duplex lower right extremity. Compression venous exam was performed using allen-scale, color Doppler, and spectral Doppler imaging. COMPARISON: None. FINDINGS: Sonographic imaging demonstrates the right common femoral, deep femoral, superficial femoral, popliteal, posterior tibial and greater saphenous and the contralateral left common femoral veins to be fully compressible with normal color Doppler blood flow. IMPRESSION: Normal right lower extremity venous ultrasound, no sign of deep venous thrombosis. Dictated by Rambo Arnold MD @ 04/28/2024 8:58:16 AM Signed by:?Rambo Arnold MD @04/28/2024 8:58:16 AM (Electronic Signature)
[2024-04-28 04:54] VITALS: BP 146/98; PULSE 75; RESP 16; TEMP 36.8; O2SAT 94
== END 2024-04-28 07:57 | disposition home or self-care (01) ==
PROVIDERS: Emergency Provider Student in an Organized Health Care Education/Training Program; PCP Student in an Organized Health Care Education/Training Program
DX: S90.121A Contusion of right lesser toe(s) without damage to nail, initial encounter (principal)
CPT/HCPCS: 73630; 76870; 93971; 93976; 99282

== ENCOUNTER 2024-04-28 16:19 | Emergency (ER) | payer OTHER, SELFPAY ==
--- NOTE | 2024-04-28 16:34 | ED_ITS ---
HPI - General Adult General Time Seen by Provider: 16:34 Date Seen: 04/28/24 Chief complaint: Unspecified Complaint, Adult Stated complaint: Vancomycin treatment Time Seen by Provider: 04/28/24 16:34 Source: patient, RN notes reviewed and other (Dr. 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 Dr. Dejesus had been in contact with him, patient had send pictures of his toe. It is MRSA culture proven. Dr. Blu mei would like him to have a dose of vancomycin and then will be seeing him tomorrow. Was reportedly started on Bactrim by a this ER overnight. Patient states the toe actually feels much better already, looks better, he took a dose of Bactrim earlier. He has no fevers. Due to the volume he in the acuity in the ER, we have arranged to see him quickly in triage, have him get his IV vancomycin infused on med surg. Related Data Home Medications ?Medication ?Instructions ?Recorded ?Confirmed apixaban 5 mg tablet (Eliquis) 5 mg PO BID 12/17/23 03/13/24 Allergies Allergy/AdvReac Type Severity Reaction Status Date / Time No Known Drug Allergies Allergy Verified 03/13/24 08:08 Review of Systems Narrative: As per HPI. PFSH PFSH Social History Smoking Status: Former smoker Do you use any of these nicotine containing products: None Second hand tobacco smoke exposure: No How often do you have a drink containing alcohol: monthly or less How often do you have six or more drinks on one occasion: Never AUDIT-C Alcohol total score: 1 Non-prescribed substance use: denies use Caffeine: Yes (coffee daily) Exam Const: Vital Signs, click to edit/add: Vital Signs - 24 hr 04/28/24 16:38 Temperature 98.0 F Pulse Rate [Pulse Oximeter] 101 H Respiratory Rate 20 Blood Pressure [Le ft Upper Arm] 182/106 H Pulse Oximetry 94 Oxygen Delivery Me thod Room Air 48-year-old male is alert, interactive, no apparent distress. He is ambulatory into the ER of his own accord. He does show me his right foot, he has prior surgical wounds that are well healed. The right 2nd toe has some erythema along the phalanx on the dorsal surface. There does not appear to be significant swelling. There is a little bit of ecchymosis along the bulb of the toe, nail is intact. Overall does not look that swollen. Documenting provider has reviewed patient's vital signs: yes Course Course ED Course: Dr. Dejesus has requested a dose of vancomycin. Have ordered 2 g IV vancomycin which will be administered and patient will be discharged to home. Vital Signs Vital signs: Initial Vital Signs Temperature 98.0 F 04/28/24 16:38 Temperature Source Temporal Artery Scan 04/28/24 16:38 Pulse Rate 101 H 04/28/24 16:38 Respiratory Rate 20 04/28/24 16:38 Blood Pressure 182/106 H 04/28/24 16:38 Blood Pressure Mean 131 H 04/28/24 16:38 Blood Pressure Position Sitting 04/28/24 16:38 Pulse Oximetry 94 04/28/24 16:38 Oxygen Delivery Method Room Air 04/28/24 16:38 Vital Signs Temperature 98.0 F 04/28/24 16:38 Pulse Rate 101 H 04/28/24 16:38 Respiratory Rate 20 04/28/24 16:38 Blood Pressure 182/106 H 04/28/24 16:38 Pulse Oximetry 94 04/28/24 16:38 Oxygen Delivery Method Room Air 04/28/24 16:38 Temperature 98.0 F 04/28/24 20:23 Pulse Rate 101 H 04/28/24 20:23 Respiratory Rate 20 04/28/24 20:23 Blood Pressure 182/106 H 04/28/24 20:23 Pulse Oximetry 94 04/28/24 16:38 Oxygen Delivery Method Room Air 04/28/24 16:38 Medications Administered Medications: Discontinued Medications Generic Name Dose Route Start Last Admin Trade Name Freq PRN Reason Stop Dose Admin Vancomycin/PEG/NADA/Lysine/Water 2 gm in 400 mls @ 200 mls/hr 04/28/24 17:00 04/28/24 19:10 Vancomycin 2 Gm/400 Ml IVPB 04/28/24 18:59 Infused ONCE ONE Infusion Protocol Discharge Plan Discharge Clinical Impression: MRSA (methicillin resistant staph aureus) culture positive Patient Disposition: Home, Self-Care Condition: Stable Instructions: MRSA (Methicillin-Resistant Staphylococcus Aureus) (ED) Additional Instructions: Continue with Bactrim, keep his follow-up with Dr. Dejesus tomorrow as already scheduled. Prescriptions: No Action Eliquis 5 mg tablet 5 mg PO BID Follow Up/Referrals: PO WHITE DO [Primary Care Provider] - Stand Alone Forms: AM Technology Info Instructions
[2024-04-28 16:38] VITALS: BP 182/106; PULSE 101; RESP 20; TEMP 36.7; O2SAT 94
[2024-04-28] MEDS: VANCOMYCIN 2 GM/400 ML 2 GM/400 ML PIGGYBACK IVPB (17:03)
--- OUTSIDE RECORDS SUMMARY | 2024-04-28 17:08 | XMS_ITS | Clinical Summary ---
Author Organization [employer] [facility] Address [place], [place] [address] Care Team Providers Care Covering And Lining Supervisor Name Role Phone Fam Lewis DO Primary Care Provider [phone] Allergies No known active allergies Medications Medication Sig Dispensed Refills Start Date End Date Status durable medical equipment (DME)Indications:S/ P orthopedic surgery, follow-up exam 01EF-XL Airselect, Standard, XLarge 1 Each 10/24/2023 Active durable medical equipment (DME)Indications:S/ P orthopedic surgery, follow-up exam [id number] Achilles Wedge 1 Each 10/24/2023 Active durable medical equipment (DME)Indications:Ca lcific Achilles tendonitis 01EF-L Airselect, Standard, Large 1 Each 12/05/2023 Active durable medical equipment (DME)Indications:Ac hilles tendon rupture, right, initial encounter,Follow-up examination after orthopedic surgery ACHILLES WEDGE, REF: [phone] 01/02/2024 Active cadexomer iodine (Iodosorb) 0.9 % [...] Encounters Date Type Department Care Team Description 04/28/2024 Orders Only [facility] Scanner 1 scan: (1-Ord) [facility], SCROTUM, 04/28/2024 04/23/2024 3:30 PM CDT Office Visit [facility] [address] [place] [address] Vincent Dejesus DPM Post-op (Right achilles, DOS 03/22/24, 4 week post op) 04/23/2024 Travel 04/23/2024 Telephone [facility] [address] [place] [address] Santa Petersen MD Testing (Needs repeat US scrotum ) 04/16/2024 3:15 PM CDT Office Visit [facility] [address] [place] [address] Vincent Dejesus DPM Post-op (Right achilles, DOS 03/22/24, 3 weeks post op) 04/16/2024 Travel 04/10/2024 Telephone [facility] [address] [place] [address] Vincent Dejesus DPM Appointment 04/10/2024 Travel 04/02/2024 3:15 PM CDT Office Visit [facility] [address] [place] [address] Vincent Dejesus DPTrena Post-op (Right achilles post op , DOS 03/22/24/Left plantar great toe callus) 04/02/2024 Travel 03/28/2024 2:00 PM CDT Office Visit [facility] [address] [place] [address] Won Paniagua, DPTrena Post-op (Right ankle- achilles) 03/27/2024 2:30 PM CDT Office Visit [facility] [address] [place] [address] Aram Rangel MD Hospital F/U (03/19/24, [place], rt ankle infection) 03/27/2024 Travel 03/24/2024 Patient Outreach [facility] [address] [place] [address] Catrina Kraft, RN Primary RN Care Management; Hospital F/U (LACE 45) 03/22/2024 8:07 AM CDT Anesthesia Event [address] [address] Lurdes Patino MD 03/22/2024 7:20 AM CDT - 03/22/2024 8:36 AM CDT Surgery [address] [address] José Miguel Fernández, DPM REPEAT IRRIGATION AND DEBRIDEMENT OF RIGHT HEEL WITH ANTIBIOTIC BEAD REMOVAL AND WOUND CLOSURE 03/19/2024 7:25 AM CDT Anesthesia Event [address] [address] Kaleigh Vang CRNA Hottinger, Daniel George, MD 03/19/2024 7:20 AM CDT - 03/19/2024 8:54 AM CDT Surgery [address] [address] Won Paniagua, MARY Irrigation and Debridement of the achilles tendon right ankle 03/19/2024 5:44 AM CDT - 03/23/2024 12:00 PM CDT Hospital Encounter [address] [address] ArceliaWon lund DPM Hanson, Trudy, NP Chung, Uyen Qjsw-Ddhw-Nofa, DO Infection (Primary Dx); Achilles tendon infection; Mixed hyperlipidemia; S/P foot surgery, right Discharge Disposition: Home Self Care 03/19/2024 Travel 03/18/2024 10:00 AM CDT Preop Visit [facility] [address] [place] [address] Nieves Paz PA Preoperative Exam (03/19/2024) 03/18/2024 Travel 03/17/2024 Telephone [facility] [address] [place] [address] Nieves Paz PA Medication Management 03/14/2024 1:00 PM CDT Office Visit [facility] [address] [facility] [address] [place] [address] Won Paniagua DPM Foot Problem (right achilles and right foot) 03/14/2024 Travel 03/11/2024 4:30 PM CDT Office Visit [facility] [address] [place] [address] Vincent Dejesus DPM Follow Up (Right achilles, wound dehiscence ) 03/11/2024 Travel 03/10/2024 Orders Only [facility] Scanner 1 scan: (1-Ord) [facility], MR ANKLE RT WO/W, 03/10/2024 03/10/2024 Orders Only [facility] Scanner 1 scan: (1-Ord) [place], RIGHT FOOT, 03/10/2024 02/28/2024 3:30 PM CDT Office Visit [facility] [place] [address] [facility] [address] [place] [id number] Vincent Dejesus DPM Post-op (Right achilles-wound dehiscence); Ulcer (Follow up-left foot) 02/28/2024 Travel 02/22/2024 8:15 AM CDT Nurse/Clinic Staff Only [facility] [address] [place] [address] Immunization/Inject ion (Rocephin 1 gram ) 02/22/2024 Travel 02/21/2024 1:00 PM CDT Nurse/Clinic Staff Only [facility] [address] [place] [address] Immunization/Inject ion (Rocephin #2/) 02/21/[address] [place] [address] Vincent Deejsus, DPM Appointment 02/20/2024 4:00 PM CDT Office Visit [address] [place] [address] Vincent Dejesus, DPTrena Post-op (Right achilles-wound dehiscence); Ulcer (Follow up-left foot) 02/20/2024 Travel 02/18/2024 1:45 PM CDT Procedure Only [address] [place] [address] Santa Petersen MD Vasectomy 02/18/2024 Travel 02/12/2024 11:30 AM CDT Office Visit [facility] [place] [address] [place] [address] Vincent Dejesus, DPM Follow Up (Right achilles tendon) 02/12/2024 Travel 02/12/2024 Telephone [facility] [place] [address] [place] [address] Vincent Dejesus, DPM [employer] 01/30/2024 1:15 PM CDT Office Visit [place] [address] [place] [address] Vincent Dejesus, DPM Follow Up (Right 6 week post op, /Left ulcer ) 01/30/2024 Travel 01/28/2024 2:00 PM CDT Procedure Only [address] [place] [address] Santa Petersen MD Vasectomy 01/28/2024 Travel from Last 3 Months Immunizations Name Administration Dates Next Due COVID-19 vaccine (Pfizer-Bio NTech 30mcg/0.3mL) 12YO+ BIVALENT PF, MDV 07/11/2022 [...] Description 04/29/2024 4:00 PM CDT Office Visit [facility] [address] [place] [address] Vincent Dejesus DPM [address] [place] [address] 06/04/2024 3:45 PM CDT Office Visit [facility] [address] [place] [address] Vincent Dejesus DPM [address] [place] [address] Health Maintenance Due Date Last Done Comments [...] this topic Medical Devices Implanted Type Area Acoustics Teacher Device Identifier Shelf Expiration Date Model / Serial / Lot Graft Bone 5ml Cerament G W/Gentamicin - [id number] Implanted:Qty: 1 on 03/19/2024 by Won Paniagua DPM at [facility] Right: Ankle Bonesupport 06/11/2026 [id number] / / [id number] Procedures Procedure Name Priority Date/Time Associated Diagnosis Comments SCAN-ULTRASOUND REPORT 04/28/2024 12:00 AM CDT CBC WITH AUTO DIFFERENTIAL Routine 03/27/2024 3:30 [...] vasectomy COLONOSCOPY SCREENING Routine 10/12/2022 8:08 AM [employer] Screening for colon cancer from Last 3 Months or Most Recently Relevant to Health Maintenance Results * SCAN-ULTRASOUND REPORT (04/28/2024 12:00 AM CDT) Anatomical Region Laterality Modality Other Scanner OTHER * (ABNORMAL) CBC WITH AUTO DIFFERENTIAL (03/27/2024 3:30 PM CDT) Only the most recent of2 resultswithin the time period is included. WHITE BLOOD COUNT 8.3 4.5 - 11.0 thou/cu mm 03/27/2024 3:36 PM CDT [facility] RED BLOOD COUNT 5.14 4.30 - 5.90 mil/cu mm 03/27/2024 3:36 PM CDT [facility] HEMOGLOBIN 15.4 13.5 - 17.5 g/dL 03/27/2024 3:36 PM CDT [facility] HEMATOCRIT 43.2 37.0 - 53.0 % 03/27/2024 3:36 PM CDT [facility] MCV 84 80 - 100 fL 03/27/2024 3:36 PM CDT [facility] MCH 30.0 26.0 - 34.0 pg 03/27/2024 3:36 PM CDT [facility] MCHC 35.6 32.0 - 36.0 g/dL 03/27/2024 3:36 PM CDT [facility] RDW 13.3 11.5 - 15.5 % 03/27/2024 3:36 PM CDT [facility] PLATELET COUNT 249 140 - 440 thou/cu mm 03/27/2024 3:36 PM CDT [facility] MPV 9.2 6.5 - 11.0 fL 03/27/2024 3:36 PM CDT [facility] % NEUT 55.0 % 03/27/2024 3:36 PM CDT [facility] % LYMPH 31.0 % 03/27/2024 3:36 PM CDT [facility] % MONO 8.0 % 03/27/2024 3:36 PM CDT [facility] % EOS 5.5 % 03/27/2024 3:36 PM CDT [facility] % BASO 0.5 % 03/27/2024 3:36 PM CDT [facility] ABSOLUTE NEUTROPHILS 4.6 1.7 - 7.0 thou/cu mm 03/27/2024 3:36 PM CDT [facility] ABSOLUTE LYMPHOCYTES 2.6 0.9 - 2.9 thou/cu mm 03/27/2024 3:36 PM CDT [facility] ABSOLUTE MONOCYTES 0.7 <0.9 thou/cu mm 03/27/2024 3:36 PM CDT [facility] ABSOLUTE EOSINOPHILS 0.5(H) <0.5 thou/cu mm 03/27/2024 3:36 PM CDT [facility] ABSOLUTE BASOPHILS 0.0 <0.3 thou/cu mm 03/27/2024 3:36 PM CDT [facility] Blood BLOOD SPECIMEN / Unknown Venipuncture / Unknown 03/27/2024 3:30 PM CDT 03/27/2024 3:32 PM CDT Aram Rangel MD HEMATOLOGY [facility] [address] [place] [address], * (ABNORMAL) COMP METABOLIC PANEL (03/27/2024 3:30 PM CDT) SODIUM 139 136 - 145 mmol/L 03/27/2024 11:05 PM CDT [facility] POTASSIUM 4.4 3.5 - 5.1 mmol/L 03/27/2024 11:05 PM T [facility] CHLORIDE 104 98 - 107 mmol/L 03/27/2024 11:05 PM T [facility] CO2,TOTAL 22 22 - 29 mmol/L 03/27/2024 11:05 PM T [facility] ANION GAP 13 5 - 18 03/27/2024 11:05 PM T [facility] GLUCOSE 100(H) 70 - 99 mg/dL 03/27/2024 11:05 PM T [facility] CALCIUM 9.6 8.6 - 10.0 mg/dL 03/27/2024 11:05 PM T [facility] BUN 21(H) 6 - 20 mg/dL 03/27/2024 11:05 PM T [facility] CREATININE 1.22(H) 0.70 - 1.20 mg/dL 03/27/2024 11:05 PM T [facility] BUN/CREAT RATIO 17 10 - 20 11:05 PM T [facility] eGFR 73(L) >90 mL/min/1.7 3m2 03/27/2024 11:05 PM T [facility] Comment:As of 2021, eG FR is calculated by the CKD-EPI creatinine equation without race adjustment. ??eGFR can be influenced by muscle mass, exercise, and diet. ??The reported eGFR is an estimation only and is only applicable if the renal function is stable. ALBUMIN 4.6 4.0 - 4.9 g/dL 03/27/2024 11:05 PM CDT [facility] PROTEIN,TOTAL 7.4 6.0 - 8.0 g/dL 03/27/2024 11:05 PM CDT [facility] BILIRUBIN,TOTAL 0.2 0.0 - 1.2 mg/dL 03/27/2024 11:05 PM T [facility] ALK PHOSPHATASE 74 40 - 129 IU/L 03/27/2024 11:05 PM T [facility] ALT (SGPT) 86(H) 10 - 50 IU/L 03/27/2024 11:05 PM T [facility] AST (SGOT) 47 10 - 50 IU/L 03/27/2024 11:05 PM T [facility] Blood BLOOD SPECIMEN / Unknown Venipuncture / Unknown 03/27/2024 3:30 PM CDT 03/27/2024 3:32 PM CDT Aram Rangel MD [facility]STRY [facility] [address] [place] [address], * (ABNORMAL) CBC W PLT NO DIFF (03/23/2024 8:19 AM CDT) WHITE BLOOD COUNT 14.1(H) 4.5 - 11.0 thou/cu mm 03/23/2024 8:37 AM CDT [facility] RED BLOOD COUNT 4.91 4.30 - 5.90 mil/cu mm 03/23/2024 8:37 AM CDT [facility] HEMOGLOBIN 14.6 13.5 - 17.5 g/dL 03/23/2024 8:37 AM T [facility] HEMATOCRIT 41.0 37.0 - 53.0 % 03/23/2024 8:37 AM T [facility] MCV 84 80 - 100 fL 03/23/2024 8:37 AM T [facility] MCH 29.7 26.0 - 34.0 pg 03/23/2024 8:37 AM T [facility] MCHC 35.6 32.0 - 36.0 g/dL 03/23/2024 8:37 AM T [facility] RDW 12.4 11.5 - 15.5 % 03/23/2024 8:37 AM T [facility] PLATELET COUNT 231 140 - 440 thou/cu mm 03/23/2024 8:37 AM T [facility] MPV 9.1 6.5 - 11.0 fL 03/23/2024 8:37 AM T [facility] NRBC 0.0 % 03/23/2024 8:37 AM T [facility] ABS NRBC 0.0 thou /cu mm 03/23/2024 8:37 AM T [facility] Blood BLOOD SPECIMEN / Unknown Butterfly / Unknown 03/23/2024 8:19 AM CDT 03/23/2024 8:34 AM CDT Kesha Zjfk-Ordr-Qdgu Cordero DO HEMATOLOGY [facility] SENDOUT INTERNAL ZIP [phone] [place] [address] * CREATININE (03/23/2024 8:19 AM CDT) Only the most recent of4 resultswithin the time period is included. eGFR >90 >90 mL/min/1.7 3m2 03/23/2024 8:55 AM T [facility] Comment:As of 2021, eG FR is calculated by the CKD-EPI creatinine equation without race adjustment. ??eGFR can be influenced by muscle mass, exercise, and diet. ??The reported eGFR is an estimation only and is only applicable if the renal function is stable. CREATININE 0.82 0.70 - 1.20 mg/dL 03/23/2024 8:55 AM CDT [facility] Blood BLOOD SPECIMEN / Unknown Butterfly / Unknown 03/23/2024 8:19 AM CDT 03/23/2024 8:33 AM CDT Cheikh Paige MD CHEMISTRY [facility] SENDOUT INTERNAL ZIP [phone] [place] [address] * HCHG ANES BLOCK INJ PERIPH (03/22/2024 [...] CULTURE No Growth. 03/25/2024 10:46 AM CDT [facility] GRAM STAIN No Epithelial cells 03/25/2024 10:46 AM CDT [facility] GRAM STAIN 4+ RBCs 03/25/2024 10:46 AM CDT [facility] GRAM STAIN No organisms seen 03/25/2024 10:46 AM CDT [facility] GRAM STAIN 1+ WBC 03/25/2024 10:46 AM CDT [facility] GRAM STAIN Gram stain performed by [place], [place] 03/25/2024 10:46 AM CDT [facility] Swab (Right foot) Non-Blood / Unknown 03/22/2024 8:52 AM CDT 03/22/2024 9:47 AM CDT José Miguel Fernández DPM MICROBIOLOGY [facility] [address] [place] [address], [facility] SENDOUT INTERNAL ZIP [phone] [place] [address] * ANAEROBIC CULTURE (03/22/2024 8:52 AM CDT) Only the most recent of2 resultswithin the time period is included. CULTURE No anaerobes isolated 03/28/2024 11:16 AM CDT [facility] Swab (Right foot) Non-Blood / Unknown 03/22/2024 8:52 AM CDT 03/22/2024 9:47 AM CDT José Miguel Fernández DPM MICROBIOLOGY [facility] [address] [place] [address], * HCHG MASK PR5 (03/22/2024 8:29 AM [...] * VANCOMYCIN TROUGH (03/21/2024 9:40 PM CDT) Pathologist [facility] VANCOMYCIN,TRO UGH 9.4 7.0 - 20.0 ug/mL 03/21/2024 10:14 PM CDT [facility] DATE OF LAST DOSE,TROUGH Not Given 03/21/2024 10:14 PM CDT [facility] TIME OF LAST DOSE,TROUGH Not Given 03/21/2024 10:14 PM CDT [facility] Blood BLOOD SPECIMEN / Unknown Non-Lab Venipuncture / Unknown 03/21/2024 9:40 PM CDT 03/21/2024 9:48 PM CDT Won Paniagua DPM CHEMISTRY [facility] SENDOUT INTERNAL ZIP [phone] [place] [address] * SEDIMENTATION RATE (03/20/2024 5:40 AM CDT) SEDIMENTATION RATE 8 <15 mm/hr 2023 7:30 AM CDT [facility] Blood BLOOD SPECIMEN / Unknown Venipuncture / Unknown 03/20/2024 5:40 AM CDT 03/20/2024 6:24 AM CDT Won Paniagua DPM HEMATOLOGY Performing Organization Address [facility]/ZIP Co de Phone Number [facility] SENDOUT INTERNAL ZIP [phone] [place] [address] * C-REACTIVE PROTEIN (03/20/2024 5:40 AM CDT) Only the most recent of2 resultswithin the time period is included. C-REACTIVE PROTEIN <0.3 <0.5 mg/dL 03/20/2024 6:53 AM CDT [facility] Blood BLOOD SPECIMEN / Unknown Venipuncture / Unknown 03/20/2024 5:40 AM CDT 03/20/2024 6:24 AM CDT Cheikh Paige MD CHEMISTRY Performing Organization Address [facility]/ZIP Co de Phone Number [facility] SENDOUT INTERNAL ZIP [phone] [place] [address] * HEMOGLOBIN A1C SCREENING (03/19/2024 4:12 PM CDT) HEMOGLOBIN A1C SCREENING 5.5 <=6.4 % 03/20/2024 7:05 AM CDT [facility] Blood BLOOD SPECIMEN / Unknown Butterfly / Unknown 03/19/2024 4:12 PM CDT 03/19/2024 4:28 PM CDT Narrative [facility] - 03/20/2024 7:05 AM CDT ? (<5.7%) ?Normal ? (5.7% to 6.4%) ? Indicates prediabetes ? (>=6.5%) ? Confirms diabetes Falsely low levels may be seen with: Recent Transfusion, Recent Significant Blood Loss, Hemolytic Diseases, or Falsely elevated levels may be seen with: Untreated Anemias, Splenectomy Kesha Gutierrez Gil URBINA CHEMISTRY [facility] SENDOUT INTERNAL ZIP [phone] [place] [address] * PLATELET COUNT (03/19/2024 4:12 PM CDT) PLATELET COUNT 226 140 - 440 thou/cu mm 03/19/2024 4:35 PM CDT [facility] MPV 9.3 6.5 - 11.0 fL 03/19/2024 4:35 PM CDT [facility] Blood BLOOD SPECIMEN / Unknown Butterfly / Unknown 03/19/2024 4:12 PM CDT 03/19/2024 4:28 PM CDT Won BURNETTM HEMATOLOGY [facility] SENDOUT INTERNAL ZIP [address] [place] [address] * (ABNORMAL) LIPID PANEL (03/19/2024 4:12 PM CDT) CHOLESTEROL,TOTAL 225(H) 100 - 199 mg/dL 03/19/2024 10:29 PM CDT [facility] Comment: Cholesterol, Total Reference Ranges Desirable <200 mg/dL Borderline 200-239 mg/dL High >=240 mg/dL TRIGLYCERIDES 291(H) <150 mg/dL 03/19/2024 10:29 PM CDT [facility] HDL CHOLESTEROL 31(L) >40 mg/dL 10:29 PM CDT [facility] NON-HDL CHOLESTEROL 194(H) <145 mg/dl 03/19/2024 10:29 PM CDT [facility] CHOL/HDL RATIO 7.26(H) <4.50 03/19/2024 10:29 PM CDT [facility] LDL CHOLESTEROL 136(H) <=130 mg/dL 03/19/2024 10:29 PM CDT [facility] VLDL CHOLESTEROL 58(H) <=30 mg/dL 03/19/2024 10:29 PM CDT [facility] Blood BLOOD SPECIMEN / Unknown Butterfly / Unknown 03/19/2024 4:12 PM CDT 03/19/2024 4:28 PM CDT Kesha Aarf-Mgqt-Kdyn Cordero DO CHEMISTRY [facility] SENDOUT INTERNAL ZIP [address] [place] [address] * (ABNORMAL) BASIC METABOLIC PANEL (03/19/2024 4:12 PM CDT) SODIUM 141 136 - 145 mmol/L 03/19/2024 5:15 PM CDT [facility] POTASSIUM 4.2 3.5 - 5.1 mmol/L 03/19/2024 5:15 PM T [facility] CHLORIDE 105 98 - 107 mmol/L 03/19/2024 5:15 PM T [facility] CO2,TOTAL 24 22 - 29 mmol/L 03/19/2024 5:15 PM T [facility] ANION GAP 12 5 - 18 03/19/2024 5:15 PM T [facility] GLUCOSE 124(H) 70 - 99 mg/dL 03/19/2024 5:15 PM T [facility] CALCIUM 9.5 8.6 - 10.0 mg/dL 03/19/2024 5:15 PM T [facility] BUN 14 6 - 20 mg/dL 03/19/2024 5:15 PM T [facility] CREATININE 1.00 0.70 - 1.20 mg/dL 03/19/2024 5:15 PM T [facility] BUN/CREAT RATIO 14 10 - 20 5:15 PM T [facility] eGFR >90 >90 mL/min/1.7 3m2 03/19/2024 5:15 PM T [facility] Comment:As of 2021, eG FR [...] 4:28 PM CDT Cheikh Paige MD CHEMISTRY [facility] SENDOUT INTERNAL [address] [phone] [place] [address] * XR Ankle 3 Views Right Portable- [...] XR ANKLE 3 VIEWS RIGHT PORTABLE LOCATION: [facility] MEDICAL IMAGING DATE: 03/19/2024 INDICATION: Pain COMPARISON: None. Procedure Note David Zhou MD - 03/19/2024 For Patients: As a result of the Cures Act, medical imagingexams and procedure reports are released immediately into your electronicmedical record. You may view this report before your referring provider.If you have questions, please contact your health care provider. EXAM: XR ANKLE 3 VIEWS RIGHT PORTABLE LOCATION: [facility] MEDICAL IMAGING DATE: 03/19/2024 INDICATION: Pain COMPARISON: [...] No Fungus isolated. 04/17/2024 7:58 AM CDT [facility] Swab (Right ankle) Non-Blood / Unknown 03/19/2024 8:01 AM CDT 03/19/2024 8:37 AM CDT Won Paniagua DPM MICROBIOLOGY [facility] [address] [place] [address], * ETT (03/19/2024 7:47 AM CDT) Narrative Telly Chaudhari PUBLIC HEALTH DOCTOR Student - 03/19/2024 7:47 AM CDT Telly [...] PM CDT) Case Report Pathology Report ?Case: [id number] ? Authorizing Provider: ??Santa Petersen MD ?Collected: ? 02/18/2024 1401 ? Ordering Location: ? [facility] ?? Received: ?02/18/2024 1430 ? Clinic ? Pathologist: ? Kannan Reynolds MD ? Specimens: ?? A) - Right Vas Deferens ? B) - Left Vas Deferens ? 02/20/2024 10:30 AM CDT [facility]AL [facility]ATORY Final Diagnosis A) VAS DEFERENS, RIGHT, VASECTOMY: Complete luminal cross-section of vas deferens identified B) VAS DEFERENS, LEFT, VASECTOMY: Complete luminal cross-section of vas deferens identified 02/20/2024 10:30 AM CDT [facility] Clinical Information Sterilization 02/20/2024 10:30 AM CDT [facility] Gross Description A) Received in [...] EVM 02/19/2024 ?? 02/20/2024 10:30 AM CDT [facility] Microscopic Description The final diagnosis is based on microscopic examination of appropriate sections of all specimens. 02/20/2024 10:30 AM CDT [facility] Additional Information Interpreted at [facility], Central Laboratory - [address], [place] [address] 02/20/2024 10:30 AM CDT [facility] Other (Right Vas Deferens) Non-Blood / Unknown 02/18/2024 2:01 PM CDT 02/18/2024 2:30 PM CDT Specimen (specimen) (Left Vas Deferens) Non-Blood / Unknown 02/18/2024 2:12 PM CDT 02/18/2024 2:30 PM CDT Sanat Petersen MD PATHOLOGY/CYTOLOGY [facility] [address] [place] [address], * COLONOSCOPY (10/12/2022 8:09 AM [employer]) 10/12/2022 8:09 AM [employer] Narrative Transcriptions Nolan Alaniz MD - 10/12/2022 [...] adequate candidate for conscious sedation. The endoscope [id number] was passed through the anus andadvanced to [...] 8:09 AM Procedure Code(s): --- Professional --- 39029, Colonoscopy, flexible; diagnostic, including collection of specimen(s) bybrushing or washing, when performed (separateprocedure) Diagnosis Code(s): --- Professional --- Z12.11, Encounter for screening formalignant neoplasm of colon CPT copyright 2020 [employer]. All rights reserved. The codes documented in this report are preliminary and upon certified medical records coder reviewmay be revised to meet current compliance requirements. Scope In: 8:53:06 AM Scope Withdrawal Time 0 hours 13 minutes 33 seconds Scope Out: 9:11:04 AM Nloan Aalniz MD PROCEDURE ORD from Last 3 Months or Most Recently Relevant to Health Maintenance Additional Health Concerns Infection Onset Date Last Indicated MRSA Comment:Order Contact Precautions. Nares surveillance cultures needed to clear patient if <12 months since positive culture. If >12 months since positive culture, precautions can be discontinued if patient has no MRSA risk factors. #1 +MRSA 03/11/24 ([facility], per chart notes) exclusions for contact precaution discontinuation (if > 12 months since positive culture): resides in acute/long term acute care registered nurse care, receiving hemodialysis, has chronic open wounds/skin [...] Code Status Discussion: Reviewed Preferences Care Teams Covering And Lining Supervisor Relationship Specialty Start Date End Date Fam Lewis DO [address] [place] [address] PCP - General Family Practice 10/16/22
[2024-04-28 20:23] VITALS: BP 182/106; PULSE 101; RESP 20; TEMP 36.7
== END 2024-04-28 20:23 | disposition home or self-care (01) ==
LOC: ED 17:07
PROVIDERS: Emergency Provider Family Medicine; PCP Student in an Organized Health Care Education/Training Program
DX: A49.02 Methicillin resistant Staphylococcus aureus infection, unspecified site (principal); S90.121A Contusion of right lesser toe(s) without damage to nail, initial encounter
CPT/HCPCS: 73630; 76870; 93971; 93976; 96365; 96366; 99282; 99284; J3372

== ENCOUNTER 2025-02-01 22:19 | Emergency (ER) | payer OTHER, SELFPAY ==
--- OUTSIDE RECORDS SUMMARY | 2025-02-01 22:21 | XMS_ITS | Clinical Summary ---
Author Organization [employer] [facility] Address [address] [place] [id number] Care Team Providers Care Quality Controller Name Role Phone Fam Lewis DO Primary Care Provider [phone] Allergies No known active allergies Medications durable medical equipment (DME)Indications :S/P orthopedic surgery, follow-up exam 01EF-XL Airselect, Standard, XLarge 1 Each 4 Active durable medical equipment (DME)Indications :S/P orthopedic surgery, follow-up exam [phone] Achilles Wedge 1 Each 4 Active durable medical equipment (DME)Indications :Calcific Achilles tendonitis 01EF-L Airselect, Standard, Large 1 Each 4 Active durable medical equipment (DME)Indications :Achilles tendon rupture, right, initial encounter,Follow -up examination after orthopedic surgery ACHILLES WEDGE, REF: [phone] 4 Active cadexomer iodine (Iodosorb) 0.9 % gelIndications:P ostoperative wound dehiscence, initial encounter Apply topically to affected area(s) once daily if needed (wound drainage). 10 g 4 Active hydrocortisone (ANUSOL-HC) 2.5 % rectal creamIndications :Hemorrhoids, internal Apply topically to affected area(s) two times daily. 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 Found on scrotal US 04/2024 Achilles tendon infection 03/22/2024 Chronic deep vein thrombosis (DVT) of distal vein of right lower extremity 03/22/2024 S/P foot surgery, right 03/20/2024 Mixed hyperlipidemia 03/20/2024 Immunizations Immunization Administration Dates Next Due COVID-19 vaccine (Agrivida-Bio NTech 30mcg/0.3mL) 12YO+ BIVALENT PF, MDV 07/11/2022 [...] 0 08/14/2023 Social Connections Answer Date Recorded Do you often feel lonely or isolated from those around you? 0 03/19/2024 Financial Resource Strain Answer Date R ecorded Difficulty of Paying Living Expenses 3 12/14/2023 Difficulty of Paying Living Expenses Not on file 12/14/2023 Food Insecurity Answer Date Recorded Do you worry your food will run out before you are able to buy more? 1 03/19/2024 Transportation Needs Answer Date Record ed Does lack of transportation keep you from medica l appointments? 1 03/19/2024 Does lack of transportation keep you from work, meetings or getting things that you need? 1 03/19/2024 Housing Stability Answer Date Recorded What is your housing situation today? 1 03/19/2024 Interpersonal Safety Answer Date Record ed Are you being hit, kicked, p ushed or yelled at (see row info)? No 03/22/2024 Interpersonal Safety Abuse 12 - 18 Not on file 03/22/2024 Interpersonal Safety Ambulatory Vulnerability No t on file 03/22/2024 Utilities Answer Date Recorded Do you have trouble paying f or utilities (for example, heat, electricity, water, phone)? 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 Not on file Not on file Not on file Obstetrics History Last Filed Vital Signs Vital Sign Reading Time Taken Comments Blood Pressure 134/89 08/01/2024 8:49 AM SQL PROGRAMMER ANALYST Pulse 77 08/01/2024 8:49 AM SQL PROGRAMMER ANALYST Temperature 37.4 C (99.4 F) 04/29/2024 4:14 PM CDT Respiratory Rate 16 03/23/2024 10:3 3 AM CDT Oxygen Saturation 97% 08/01/2024 8:49 AM SQL PROGRAMMER ANALYST Inhaled Oxygen Concentration - - Weight 146.6 kg (323 lb 3.2 oz) 08/01/2024 8:49 AM SQL PROGRAMMER ANALYST Height 205.7 cm (6' 9) 03/19/2024 6:12 AM CDT Body Mass Index 34.63 03/19/2024 6:12 AM CDT Plan of Treatment Health Maintenance Due Date Last Done Comments Hepatitis C screening for age 18-79 1993 Hepatitis B series for 19+ (1 of 3 - 19+ 3-dose series) 1994 COVID-19 vaccine series ( season) 2024 07/11/2022, 08/03/2021, 10/23/2020, Additional history exists Depression screening for age 12+ 08/14/2024 08/14/2023, 07/11/2022, 07/11/2022, Additional history exists BMI (ht and wt on same day) for age 18+ 03/18/2025 03/18/2024, 08/14/2023, 07/11/2022 Influenza Vaccine (Season Ended) 2025 07/11/2022, 06/10/2018, 04/28/2015 Lipids for age 45-75 03/19/2029 03/19/2024, 07/03/20 22 Colonoscopy through age 75 10/12/203210/12, 10/12/2022, 10/12/2022 Tetanus booster 03/18/2034 03/18/2024, 06/02/2015 HIV for age 15-65 Completed 07/03/2022 (Co mpleted outside of [facility]) Tdap Completed 03/18/2024, 06/02/2015 Pneumococcal series for age 6-49 Aged Out No longer eligible based on patient's age to complete this topic Medical Devices Implanted Type Area Soap Grinder Device Identifier Shelf Expiration Date Model / Serial / Lot Graft Bone 5ml Cerament G W/Gentamicin - [id number] Implanted:Qty: 1 on 03/19/2024 by Won Paniagua DPM at [facility] Right: Ankle Bonesupport 06/11/2026 [id number] / / [id number] Procedures Procedure Name Priority Date/Time Associated Diagnosis Comments LIPID PANEL SHE 03/19/2024 4:12 PM CDT COLONOSCOPY SCREENING Routine 10/12/2022 8:08 AM SQL PROGRAMMER ANALYST Screening for colon cancer from Last 3 Months or Most Recently Relevant to Health Maintenance Results * (ABNORMAL) LIPID PANEL (03/19/2024 4:12 PM CDT) CHOLESTEROL,TOTAL 225(H) 100 - 199 mg/dL 03/19/2024 10:29 PM CDT [facility] Comment: Cholesterol, Total Reference Ranges Desirable <200 mg/dL Borderline 200-239 mg/dL High >=240 mg/dL TRIGLYCERIDES 291(H) <150 mg/dL 03/19/2024 10:29 PM CDT [facility] HDL CHOLESTEROL 31(L) >40 mg/dL 10:29 PM CDT [facility] NON-HDL CHOLESTEROL 194(H) <145 mg/dl 03/19/2024 10:29 PM CDT [facility] CHOL/HDL RATIO 7.26(H) <4.50 03/19/2024 10:29 PM CDT [facility] LDL CHOLESTEROL 136(H) <=130 mg/dL 03/19/2024 10:29 PM CDT [facility] VLDL CHOLESTEROL 58(H) <=30 mg/dL 03/19/2024 10:29 PM CDT [facility] Blood BLOOD SPECIMEN / Unknown Butterfly / Unknown 03/19/2024 4:12 PM CDT 03/19/2024 4:28 PM CDT Kesha Kjta-Mfes-Mhhj Gil URBINA CHEMISTRY Fin al Result [facility] [address] [address] [id number] [address] [place] [address] * COLONOSCOPY (10/12/2022 8:09 AM SQL PROGRAMMER ANALYST) 10/12/2022 8:09 AM SQL PROGRAMMER ANALYST Narrative Transcriptions Nolan Alaniz MD - 10/12/2022 [...] adequate candidate for conscious sedation. The endoscope [id number] was passed through the anus andadvanced to [...] 8:09 AM Procedure Code(s): --- Professional --- 06522, Colonoscopy, flexible; diagnostic, including collection of specimen(s) bybrushing or washing, when performed (separateprocedure) Diagnosis Code(s): --- Professional --- Z12.11, Encounter for screening formalignant neoplasm of colon CPT copyright 2020 [employer]. All rights reserved. The codes documented in this report are preliminary and upon buttoner reviewmay be revised to meet current compliance requirements. Scope In: 8:53:06 AM Scope Withdrawal Time 0 hours 13 minutes 33 seconds Scope Out: 9:11:04 AM us Nolan Alaniz MD PROCEDURE ORD Final Res ult from Last 3 Months or Most Recently Relevant to Health Maintenance Additional Health Concerns Infection Onset Date Last Indicated MRSA Comment:Order Contact Precautions. Nares surveillance cultures needed to clear patient if <12 months since positive culture. If >12 months since positive culture, precautions can be discontinued if patient has no MRSA risk factors. #1 +MRSA 03/11/24 ([facility], per chart notes) exclusions for contact precaution discontinuation (if > 12 months since positive culture): resides in acute/meterman care, receiving hemodialysis, has chronic open wounds/skin damage, has long-term percutaneous indwelling medical devices Exclusions for nares collection (if <12 months since positive culture) include all of the previous exclusions plus patients on antibiotics 7 days prior to collection 03/18/2024 03/18/2024 Insurance [email or web address] CHOICE Advance Directives * Full Code (Latest Code Status on File) Date Activated Date Inactivated Comments 03/19/2024 6:59 AM 03/23/2024 3:07 PM Question Answer Comments Code Status Discussion: Reviewed Preferences Care Teams Quality Controller Relationship Specialty Start Date End Date Fam Lewis DO [address] [place] [address] PCP - General Family Practice 10/16/22
[2025-02-01 22:25] VITALS: BP 166/103; PULSE 95; RESP 18; TEMP 36.7; O2SAT 99; BMI 31.6
[2025-02-01 22:55] LABS: Basophils Absolute Auto 0.04 K/uL (0.00-0.30); Basophils Percent Auto 0.5 % (0.0-3.0); Eosinophils Absolute Auto 0.23 K/uL (0.00-0.50); Eosinophils Percent Auto 2.7 % (0.0-7.0); Hematocrit 41.8 % (37.0-53.0); Hemoglobin* 14.4 gm/dL (13.5-17.5); Immature Granulocytes Abs Auto 0.09 K/uL (0.00-0.30); Immature Granulocytes Pct Auto 1.1 %; Lymphocytes Absolute Auto 1.71 K/uL (0.90-2.90); Lymphocytes Percent Auto 20.2 % (20-44); Mean Corpuscular HGB Conc 34 gm/dL (32-36); Mean Corpuscular Hemoglobin 29 pg (26-34); Mean Corpuscular Volume 85 fL (80-100); Monocytes Percent Auto 7.1 % (0.0-11.0); Neutrophils Absolute Auto 5.81 K/uL (1.7-7.0); Neutrophils Percent Auto 68.4 % (42.0-72.0); Platelet Count* 206 K/uL (140-440); RDW Coefficient of Variation % 12.5 % (11.5-15.5); White Blood Count* 8.48 K/uL (4.50-11.00)
[2025-02-01 22:58] LABS: Slide Review Reflex No
--- NOTE | 2025-02-01 23:06 | ED_ITS ---
HPI - General Adult General Date Seen: 02/01/25 Chief complaint: Skin/Abscess/Foreign Body Stated complaint: L foot cellulitis Time Seen by Provider: 02/01/25 22:37 Source: patient Mode of arrival: ambulatory Limitations: no limitations History of Present Illness HPI narrative: Patient is a 49-year-old male presenting to the emergency department for concerning sign eyes to his left foot. He states he had multiple procedures done in his right foot last year by Dr. Dejesus. With during all these procedures he did end up developing MRSA I was about several different antibiotics until they got 1 that worked. He is unsure which antibiotic it was. He states he noticed a blister on the bottom of his foot few days ago after golfing. It stayed localized to the blister at the base of the great toe but then noticed today he. Has some cellulitis going up the foot. He was concerned so came in for evaluation. Denies fevers, chills, chest pain, shortness of breath, abdominal pain, diarrhea, constipation, lightheadedness, dizziness. No other concerns noted. Related Data Home Medications ?Medication ?Instructions ?Recorded ?Confirmed semaglutide 2.5 mg/mL subcutaneous 2.5 mg subcut DI RECTED 02/01/25 02/01/25 solution Allergies Allergy/AdvReac Type Severity Reaction Status Date / Time No Known Drug Allergies Allergy Verified 02/01/25 22:29 Review of Systems Status of ROS: Reports: 10 or more systems reviewed and unremarkable except as noted in History and below PFSH PFS Medical History History of MRSA infection ?Z86.14 - Personal history of Methicillin resistant Staphylococcus aureus infection (ICD-10) Social History Smoking Status: Former smoker Do you use any of these nicotine containing products: None Second hand tobacco smoke exposure: No How often do you have a drink containing alcohol: monthly or less How often do you have six or more drinks on one occasion: Never AUDIT-C Alcohol total score: 1 Non-prescribed substance use: denies use Caffeine: Yes (coffee daily) Exam Narrative: Exam Narrative: Const: Well-nourished, Well-developed, in no distress Eyes: PERRL, no conjunctival injection, and symmetrical lids HENT: Atraumatic external nose and ears. Moist mucous membranes. Neck: Symmetric, trachea midline, No thyromegaly. CVS: RRR, No murmurs or gallops. Peripheral pulses 2+ and equal in all extremities RESP: Unlabored respiratory effort. Clear to auscultation bilaterally. GI: Nontender/Nondistended, No rebound or guarding. MSK:Extremities w/o deformity, Normal Active ROM Skin: Warm, Dry. Blister notice to the base of the left great toe with some surrounding erythema does track slightly into the arch of the foot. That area the left foot does feel slightly warmer than the rest of his foot is definitely warmer than his other foot. Does have circulation issues to his right foot though Neuro: Normal Muscle tone, No focal neurological deficits. Psych: Awake, Alert, & Oriented x3. Appropriate mood and affect. Const: Vital Signs, click to edit/add: Vital Signs - 24 hr 02/01/25 22:25 Temperature 98.0 F Pulse Rate [Right Pulse Oximeter] 95 Respiratory Rate 18 Blood Pressure [Ri ght Upper Arm] 166/1 H Pulse Oximetry 99 Oxygen Delivery Me thod Room Air Course Vital Signs Vital signs: Initial Vital Signs Temperature 98.0 F 02/01/25 22:25 Temperature Source Temporal Artery Scan 02/01/25 22:25 Pulse Rate 95 02/01/25 22:25 Respiratory Rate 18 02/01/25 22:25 Blood Pressure 166/1 H 02/01/25 22:25 Blood Pressure Mean 56 L 02/01/25 22:25 Blood Pressure Position Sitting 02/01/25 22:25 Pulse Oximetry 99 02/01/25 22:25 Oxygen Delivery Method Room Air 02/01/25 22:25 Vital Signs Temperature 98.0 F 02/01/25 22:25 Pulse Rate 95 02/01/25 22:25 Respiratory Rate 18 02/01/25 22:25 Blood Pressure 166/1 H 02/01/25 22:25 Pulse Oximetry 99 02/01/25 22:25 Oxygen Delivery Method Room Air 02/01/25 22:25 Temperature 98.0 F 02/01/25 22:25 Pulse Rate 95 02/01/25 22:25 Respiratory Rate 18 02/01/25 22:25 Blood Pressure 166/1 H 02/01/25 22:25 Pulse Oximetry 99 02/01/25 22:25 Oxygen Delivery Method Room Air 02/01/25 22:25 Medical Decision Making MDM Narrative Medical decision making narrative: Patient is a 49-year-old male presenting for concerns of cellulitis his left foot. It does have a slight erythema and warmth compared to the rest of this foot and right foot. The small blister would be a source of infection so I will treat him with antibiotics. Concerning his history I will treat for MRSA also with Bactrim. Check some basic labs and they are non concerning. He will be discharged. Lab Data Labs: Lab Results 02/01/25 Range/Units 22:50 WBC 8.48 (4.50-11.00) K/uL RBC 4.90 (4.30-5.90) m/uL Hgb 14.4 (13.5-17.5) gm/dL Hct 41.8 (37.0-53.0) % MCV 85 (80-100) fL MCH 29 (26-34) pg MCHC 34 (32-36) gm/dL RDW Coeff of Ming 12.5 (11.5-15.5) % Plt Count 206 (140-440) K/uL Neut % (Auto) 68.4 (42.0-72.0) % Lymph % (Auto) 20.2 (20-44) % [place] % (Auto) 7.1 (0.0-11.0) % Eos % (Auto) 2.7 (0.0-7.0) % Baso % (Auto) 0.5 (0.0-3.0) % Neut # (Auto) 5.81 (1.7-7.0) K/uL Lymph # (Auto) 1.71 (0.90-2.90) K/uL [place] # (Auto) 0.60 (0.00-0.90) K/UL Eos # (Auto) 0.23 (0.00-0.50) K/uL Baso # (Auto) 0.04 (0.00-0.30) K/uL Abs Immat Gran (auto) 0.09 (0.00-0.30) K/uL Imm/Tot Granulo (auto) 1.1 % Sodium 138 (135-149) mmol/L Potassium 3.3 L (3.6-5.1) mmol/L Chloride 102 (96-114) mmol/L Carbon Dioxide 28 (20-32) mmol/L Anion Gap 8 (7-15) mEq/L BUN 14 (5-24) mg/dL Creatinine 1.0 (0.5-1.5) mg/dL Estimated Creat Clear 121.33 Estimated GFR 92 ml/min Glucose 111 (60-115) mg/dL Calcium 9.5 (8.4-10.6) mg/dL Discharge Plan Discharge Clinical Impression: Cellulitis Qualifiers: Site of cellulitis: extremity Site of cellulitis of extremity: lower extremity Laterality: left Qualified Code(s): L03.116 - Cellulitis of left lower limb Patient Disposition: Home, Self-Care Condition: Stable Instructions: Cellulitis (ED) Additional Instructions: I recommend follow-up this week with primary care or Podiatry. Keflex and Bactrim prescribed via instymeds. Prescriptions: No Action semaglutide 2.5 mg/mL solution 2.5 mg subcut DIRECTED Rx Instructions: take weekly Follow Up/Referrals: PO WHITE DO [Primary Care Provider, Family Practice] Stand Alone Forms: MyHealth Info Instructions
[2025-02-01 23:07] LABS: Chloride* 102 mmol/L (96-114); Sodium* 138 mmol/L (135-149)
[2025-02-01 23:08] LABS: Potassium* 3.3 mmol/L (3.6-5.1)
[2025-02-01 23:11] LABS: Anion Gap 8 mEq/L (7-15); Blood Urea Nitrogen* 14 mg/dL (5-24); Calcium* 9.5 mg/dL (8.4-10.6); Carbon Dioxide* 28 mmol/L (20-32); Est. Creatinine Clearance* 121.33; Estimated Glomerular Filt Rate 92 ml/min; Glucose* 111 mg/dL (60-115)
[2025-02-01 23:39] VITALS: BP 156/85; PULSE 86; RESP 18; TEMP 36.7; O2SAT 99
[2025-02-02 00:06] VITALS: BP 156/85; PULSE 86; RESP 18; TEMP 36.7
== END 2025-02-02 00:07 | disposition home or self-care (01) ==
PROVIDERS: Emergency Provider Student in an Organized Health Care Education/Training Program; PCP Student in an Organized Health Care Education/Training Program
DX: L03.116 Cellulitis of left lower limb (principal)
CPT/HCPCS: 36415; 80048; 85025; 99283; 99285